=== PATIENT | male | born 1990 | race Caucasian/White ===

== ENCOUNTER 2017-03-03 21:52 | Inpatient (IN) | payer SELFPAY ==
[2017-03-03 22:03] VITALS: BMI 21.5
[2017-03-03] MEDS ORDERED: morphine SULFATE 4 MG/ML VIAL IVPUSH ONE (23:18)
[2017-03-03] MEDS ORDERED: ONDANSETRON 4 MG/2 ML VIAL IVPUSH ONE (23:18)
[2017-03-03] MEDS ORDERED: SODIUM CHLORIDE 0.9% 1000 ML INFUS.BAG IV ONE (23:18)
[2017-03-03] MEDS ORDERED: morphine CARPU-JECT 4 MG/1 ML DISP.SYRIN IVPUSH ONE (23:25)
--- NOTE | 2017-03-03 23:35 | PDOC ---
History of Present Illness <Urmila Parham - Last Filed: 03/04/17 02:54> - General History Source: Patient Exam Limitations: No Limitations - History of Present Illness Initial Comments: 03/03/17 23:27 Patient is a 26-year-old history of alcohol abuse, pancreatitis-diagnosed 2 years ago and admitted in [place], complaining of epigastric pain since a few hours ago. Patient states he had a few drinks today and 2 hours ago after eating at [employer] developed this epigastric pain which 10/10 associated with nausea and vomiting. Patient is very irritable and unable to give a complete history. Patient has been seen several times in this ER for alcohol withdrawal. Denies diarrhea, fever, chills. Contrary to triage patient does not have chest pain but has epigastric pain. States feeling hot all over and would like to drink some water. PMD: Dr. Baldwin PMHX: as above PSOCHX: (+) alcohol, ALL: NKDA GENERAL/CONSTITUTIONAL: [No fever or chills. No weakness. No weight change.] HEAD, EYES, EARS, NOSE AND THROAT: [No change in vision. No ear pain or discharge. No sore throat.] CARDIOVASCULAR: [No chest pain or shortness of breath.] RESPIRATORY: [No cough, wheezing, or hemoptysis.] GASTROINTESTINAL: (+) nausea, vomiting, (-) diarrhea or constipation. No rectal bleeding.] GENITOURINARY: [No dysuria, frequency, or change in urination.] MUSCULOSKELETAL: [No joint or muscle swelling or pain. No neck or back pain.] SKIN AND BREASTS: [No rash or easy bruising.] NEUROLOGIC: [No headache, vertigo, loss of consciousness, or loss of sensation.] PSYCHIATRIC: [No depression or anxiety.] ENDOCRINE: [No increased thirst. No abnormal weight change.] HEMATOLOGIC/LYMPHATIC: [No anemia, easy bleeding, or history of blood clots.] ALLERGIC/IMMUNOLOGIC: [No hives or skin allergy. No latex allergy.] GENERAL: [The patient is awake, alert, and fully oriented, in moderate distress , agitated and annoyed] HEAD: [Normal with no signs of trauma.] EYES: [Pupils equal, round and reactive to light, extraocular movements intact, sclera anicteric, conjunctiva clear.] ENT: [Ears normal, nares patent, oropharynx clear without exudates. Moist mucous membranes.] NECK: [Normal range of motion, supple without lymphadenopathy, JVD, or masses.] LUNGS: [Breath sounds equal, clear to auscultation bilaterally. No wheezes, and no crackles.] HEART: [Regular rate and rhythm, normal S1 and S2 without murmur, rub.] ABDOMEN: [Soft, (+) tenderness to the epgastrum, , normoactive bowel sounds. (+ ) guarding, no rebound. No masses.] EXTREMITIES: [Normal range of motion, no edema. No clubbing or cyanosis. No cords, erythema, or tenderness.] NEUROLOGICAL: [Cranial nerves II through XII grossly intact. Normal speech, normal gait.] PSYCH: [Normal mood, normal affect.] SKIN: [Warm, Dry, normal turgor, no rashes or lesions noted.] <Christian Butler - Last Filed: 03/04/17 04:26> - General Chief Complaint: Pain Stated Complaint: CHEST PAIN Time Seen by Provider: 03/03/17 23:01 Past History <Urmila Parham - Last Filed: 03/04/17 02:54> - Past Medical History Anemia: Yes (not taking any iron supplement) Asthma: No Cancer: No Cardiac Disorders: No CVA: No COPD: No CHF: No Dementia: No Diabetes: No GI Disorders: No Disorders: No HTN: No Hypercholesterolemia: No Kidney Stones: No Liver Disease: No Seizures: No Thyroid Disease: No - Surgical History Abdominal Surgery: No Appendectomy: No Cardiac Surgery: No Cholecystectomy: No Lung Surgery: No Neurologic Surgery: No Orthopedic Surgery: No - Reproductive History Testicular Surgery: No - Suicide/Smoking/Psychosocial Hx Smoking History: Never smoked Have you smoked in the past 12 months: No 'Breaking Loose' booklet given: 07/18/15 Hx Alcohol Use: Yes Drug/Substance Use Hx: No Substance Use Type: Alcohol Hx Substance Use Treatment: Yes <Christian Butler - Last Filed: 03/04/17 04:26> - Past Medical History Allergies/Adverse Reactions: Allergies Allergy/AdvReac Type Severity Reaction Status Date / Time No Known Allergies Allergy Verified 03/03/17 22:00 Home Medications: Ambulatory Orders NK [No Known Home Medication] 03/03/17 Abd/GI Specific PMHX - Complaint Specific PMHX Hepatitis: No Pancreatitis: No <Christian Butler - Last Filed: 03/04/17 04:26> *Physical Exam - Vital Signs Last Vital Signs Temp Pulse Resp BP Pulse Ox 97.8 F 67 18 122/82 99 03/03/17 22:01 03/03/17 22:01 03/03/17 22:01 03/03/17 22:01 03/03/17 22:01 <Urmila Parham - Last Filed: 03/04/17 02:54> - Vital Signs Last Vital Signs Temp Pulse Resp BP Pulse Ox 97.8 F 67 18 122/82 99 03/03/17 22:01 03/03/17 22:01 03/03/17 22:01 03/03/17 22:01 03/03/17 22:01 <Christian Butler - Last Filed: 03/04/17 04:26> ED Treatment Course - LABORATORY CBC & Chemistry Diagram: 03/03/17 23:56 03/03/17 23:56 - ADDITIONAL ORDERS Additional order review: Laboratory Results 03/03/17 03/03/17 23:56 23:50 Sodium 140 Potassium 3.4 L Chloride 102 Carbon Dioxide 29 Anion Gap 9 BUN 10 D Creatinine 1.0 Creat Clearance w eGFR > 60 Random Glucose 137 H D Calcium 9.3 Magnesium 1.9 Total Bilirubin 0.6 AST 30 D ALT 46 D Alkaline Phosphatase 91 Total Protein 7.9 Albumin 4.2 Lipase 22422 H 03/03/17 23:56 RBC 4.86 MCV 89.8 MCHC 34.0 RDW 14.3 D MPV 6.5 L Neutrophils % 89.3 H D Lymphocytes % 6.2 L D Monocytes % 4.2 Eosinophils % 0.1 D Basophils % 0.2 - RADIOLOGY Radiology Studies Ordered: Category Date Time Status CHEST X-RAY PORTABLE* [RAD] Stat Radiology 03/04/17 00:49 Taken - Medications Given in the ED: ED Medications Discontinued Medications Generic Name Dose Route Start Last Admin Trade Name Freq PRN Reason Stop Dose Admin Hydromorphone HCl 2 mg 03/04/17 02:12 03/04/17 02:28 Dilaudid Injection - IVPUSH 03/04/17 02:13 2 mg ONCE ONE Administration Famotidine 20 mg in 12 mls @ 144 mls/hr 03/04/17 00:23 03/04/17 00:23 Pepcid 20 Mg/12 Ml Push IVPUSH 03/04/17 00:27 144 mls/hr ONCE ONE Administration Potassium Chloride 10 meq in 100 mls @ 100 mls/hr 03/04/17 01:00 03/04/17 01: 44 Potassium Chloride 10 Meq Premix Ivpb - IVPB 03/04/17 01:59 100 mls/hr Q60M ZACHERY Administration Morphine Sulfate 4 mg 03/03/17 23:18 03/04/17 00:18 Morphine Sulfate IVPUSH 03/03/17 23:19 Not Given ONCE ONE Morphine Sulfate 4 mg 03/03/17 23:25 03/04/17 00:18 Morphine Injection - IVPUSH 03/03/17 23:26 4 mg ONCE ONE Administration Morphine Sulfate 4 mg 03/04/17 01:10 03/04/17 01:18 Morphine Injection - IVPUSH 03/04/17 01:11 4 mg NOW ONE Administration Ondansetron HCl 4 mg 03/03/17 23:18 03/04/17 00:18 Zofran Injection IVPUSH 03/03/17 23:19 4 mg ONCE ONE Administration Sodium Chloride 1,000 ml 03/03/17 23:18 03/04/17 00:18 Normal Saline - IV 03/03/17 23:19 1,000 ml ONCE ONE Administration <Urmila Parham - Last Filed: 03/04/17 02:54> - LABORATORY CBC & Chemistry Diagram: 03/03/17 23:56 03/03/17 23:56 <Christian Butler - Last Filed: 03/04/17 04:26> Medical Decision Making - Medical Decision Making 03/04/17 02:54 Patient Name: DB HEAD THIS IS A PRELIMINARY REPORT FROM [facility] DATE OF SERVICE: 2017-03-04 01:18:07 IMAGES: [id number] EXAM: CT ABDOMEN AND PELVIS with contrast HISTORY: Pancreatitis COMPARISON: None. FINDINGS: Lung bases are clear. The visualized cardiac chambers are normal size and configuration. Moderate amount of peripancreatic inflammation is consistent with acute pancreatitis. There is mild secondary duodenal inflammation. No other obvious complications identified. No gallstones or biliary duct dilation. Normal liver, gallbladder, spleen, adrenal glands and kidneys. The stomach and abdominal large bowel are normal. There is no aortic aneurysm. There is no significant retroperitoneal lymphadenopathy. The pelvic small and large bowel are normal. The appendix is normal. The urinary bladder and prostate gland are normal. No pelvic free fluid is identified. There is no significant pelvic lymphadenopathy. IMPRESSION: Moderate acute pancreatitis with mild secondary duodenal inflammation THIS DOCUMENT HAS BEEN ELECTRONICALLY SIGNED <Urmila Parham - Last Filed: 03/04/17 02:54> - Medical Decision Making 03/03/17 23:35 Patient is a 26-year-old history of alcohol abuse, pancreatitis-diagnosed 2 years ago and admitted in [place], complaining of epigastric pain since a few hours ago most likely pancreatitis, since he is a drinker and was drinking today. DDX gastritis, perforation labs morphine [address] abd pelvis r/o perforation 03/04/17 01:33 labs reviewed noted to have elevated lipase 25575, with wbc 17.2 will continue on IVF CTAP with IV r/o abscess c/o pain again given Morphine 4mg IV given K+ run x 1, MagSulfate 2gm IV x 1 D/W with Dr. Valenzuela will admit Patient Full Name: SONIDO ACE Patient Accession No: [id number] Patient : 1990 Reason for Exam: PANCREATITIS Referring Physician: Patient Name: DB HEAD THIS IS A PRELIMINARY REPORT FROM [facility] DATE OF SERVICE: 2017-03-04 01:18:07 IMAGES: [id number] EXAM: CT ABDOMEN AND PELVIS with contrast HISTORY: Pancreatitis COMPARISON: None. FINDINGS: Lung bases are clear. The visualized cardiac chambers are normal size and configuration. Moderate amount of peripancreatic inflammation is consistent with acute pancreatitis. There is mild secondary duodenal inflammation. No other obvious complications identified. No gallstones or biliary duct dilation. Normal liver, gallbladder, spleen, adrenal glands and kidneys. The stomach and abdominal large bowel are normal. There is no aortic aneurysm. There is no significant retroperitoneal lymphadenopathy. The pelvic small and large bowel are normal. The appendix is normal. The urinary bladder and prostate gland are normal. No pelvic free fluid is identified. There is no significant pelvic lymphadenopathy. IMPRESSION: Moderate acute pancreatitis with mild secondary duodenal inflammation THIS DOCUMENT HAS BEEN ELECTRONICALLY SIGNED Win Nalaboff, MD 03/04/2017 01:45 EST JessicaD. Please call Imaging [facility] Operations [facility] [phone]) with questions. INTERPRETING RADIOLOGIST: John Ramirez MD Electronically Signed: Mar 04, 2017 01:47AM EST <Christian Butler - Last Filed: 03/04/17 04:26> *DC/Admit/Observation/Transfer <Urmila Parham - Last Filed: 03/04/17 02:54> - Discharge Dispostion Admit: Yes <Christian Butler - Last Filed: 03/04/17 04:26> Diagnosis at time of Disposition: Acute pancreatitis Qualifiers: Pancreatitis type: alcohol induced Acute pancreatitis complication: unspecified Qualified Code(s): K85.20 - Alcohol induced acute pancreatitis without necrosis or infection - Discharge Dispostion Condition at time of disposition: Stable
[2017-03-03 23:59] LABS: BASOPHIL 0.2 % (0-2.0); EOSINOPHIL 0.1 % (0-4.5); MCH 30.5 pg (25.7-33.7); MEAN CELL VOLUME 89.8 fl (80-96); MEAN PLT VOLUME 6.5 fl (7.5-11.1); NEUTROPHILS 89.3 % (42.8-82.8); PLATELET COUNT 287 K/MM3 (134-434); RDW 14.3 % (11.9-15.9); WHITE BLOOD COUNT 17.3 K/mm3 (4.0-10.0)
[2017-03-04] MEDS ORDERED: ONDANSETRON 4 MG/2 ML VIAL ONE (00:11)
[2017-03-04] MEDS ORDERED: morphine SULFATE 4 MG/ML VIAL ONE ×2 (00:11→01:11)
[2017-03-04] MEDS ORDERED: FAMOTIDINE IV 20 MG/12 ML VIAL IVPUSH ONE ×2 (00:23→23:18)
[2017-03-04] MEDS ORDERED: FAMOTIDINE 20 MG/50 ML IVPB 20 MG/50 ML MG IVPB ONE (00:24)
[2017-03-04 00:31] LABS: ALBUMIN 4.2 g/dl (3.4-5.0); ANION GAP 9 (8-16); BILIRUBIN,TOTAL 0.6 mg/dL (0.2-1.0); CALCIUM 9.3 mg/dL (8.5-10.1); CO2 29 mmol/L (21-32); GLUCOSE,RANDOM 137 mg/dL (74-106); SGOT/AST 30 U/L (15-37); SGPT/ALT 46 U/L (12-78); TOT PROT 7.9 g/dl (6.4-8.2)
[2017-03-04 00:33] LABS: ALK PHOS 91 U/L (45-117)
[2017-03-04] MEDS ORDERED: KCL 10 MEQ IVPB 10 MEQ/100 ML INFUS.BAG IVPB SCH (01:00)
[2017-03-04] MEDS ORDERED: KCL 10 MEQ IVPB 10 MEQ/100 ML INFUS.BAG IVPB ONE (01:07)
[2017-03-04] MEDS ORDERED: morphine CARPU-JECT 4 MG/1 ML DISP.SYRIN IVPUSH ONE (01:10)
[2017-03-04] MEDS ORDERED: HYDROmorphone HCL CARPU-JECT 2 MG/1 ML DISP.SYRIN IVPUSH ONE (02:12)
[2017-03-04] MEDS ORDERED: HYDROmorphone HCL CARPU-JECT 2 MG/1 ML DISP.SYRIN ONE ×2 (02:24→14:13)
[2017-03-04 03:05] LABS: AMYLASE 2280 U/L (25-115)
[2017-03-04] MEDS ORDERED: morphine SULFATE 4 MG/ML VIAL IVPUSH PRN ×2 (03:54→09:09)
[2017-03-04] MEDS ORDERED: ONDANSETRON 4 MG/2 ML VIAL IVPUSH PRN (03:54)
[2017-03-04] MEDS ORDERED: SODIUM CHLORIDE 1,000 ML IV SCH (04:00)
[2017-03-04 09:01] LABS: CHOLESTEROL 213 mg/dL (50-200)
--- NOTE | 2017-03-04 09:03 | CON.GI ---
Consult Consult Specialty:: GI Reason for Consultation:: Acute pancreatitis - History of Present Illness History of Present Illness: Chart reviewed. A 26 yom admitted via ED with acute pancreatitis. Ongoing alcohol abuse and history of acute pancreatitis. Elevated lipase and a CT findings on admission are consistent with acute pancreatitis. Normal Hgb, BUN, Cr. Vital signs. Elevated WBC. There is no family history of pancreatitis. No personal history of dyslipidemia. - History Source History Provided By: Patient, Medical Record - Alcohol/Substance Use Hx Alcohol Use: Yes - Smoking History Smoking history: Never smoked Have you smoked in the past 12 months: No Home Medications - Allergies Allergies/Adverse Reactions: Allergies Allergy/AdvReac Type Severity Reaction Status Date / Time No Known Allergies Allergy Verified 03/03/17 22:00 - Home Medications Home Medications: Ambulatory Orders NK [No Known Home Medication] 03/03/17 Family Disease History - Family Disease History Family History: Unremarkable (non-contributory) Family Disease History: Diabetes: Mother Review of Systems Findings/Remarks: please refer to H&P Physical Exam-GI Vital Signs: Vital Signs Temperature 98.9 F 03/04/17 01:37 Pulse Rate 84 03/04/17 01:37 Respiratory Rate 22 03/04/17 04:44 Blood Pressure 140/85 03/04/17 01:37 O2 Sat by Pulse Oximetry (%) 99 03/04/17 04:44 Constitutional: Yes: Mild Distress Eyes: Yes: Conjunctiva Clear HENT: Yes: Atraumatic Neck: Yes: Supple Cardiovascular: Yes: Regular Rate and Rhythm Respiratory: Yes: Regular Gastrointestinal Inspection: No: Ascites, Distention ...Palpate: Yes: Guarding, Soft, Tenderness, Tenderness, Epigastium, Tenderness , Rebound. No: Mass Neurological: Yes: Alert, Oriented Labs: CBC, BMP 03/03/17 23:56 03/03/17 23:56 Abnormal Lab Results 03/03/17 03/03/17 23:56 23:56 WBC 17.3 H D MPV 6.5 L Neutrophils % 89.3 H D Lymphocytes % 6.2 L D Potassium 3.4 L Random Glucose 137 H D Total Amylase 2280 H Lipase 52694 H Laboratory Results - last 24 hr 03/03/17 03/03/17 03/03/17 23:50 23:56 23:56 WBC 17.3 H D RBC 4.86 Hgb 14.8 Hct 43.7 MCV 89.8 MCH 30.5 MCHC 34.0 RDW 14.3 D Plt Count 287 MPV 6.5 L Neutrophils % 89.3 H D Lymphocytes % 6.2 L D Monocytes % 4.2 Eosinophils % 0.1 D Basophils % 0.2 Sodium 140 Potassium 3.4 L Chloride 102 Carbon Dioxide 29 Anion Gap 9 BUN 10 D Creatinine 1.0 Creat Clearance w eGFR > 60 Random Glucose 137 H D Calcium 9.3 Magnesium 1.9 Total Bilirubin 0.6 AST 30 D ALT 46 D Alkaline Phosphatase 91 Total Protein 7.9 Albumin 4.2 Total Amylase 2280 H Lipase 33238 H Imaging - Results Cat Scan: Report Reviewed Problem List - Problems (1) Acute pancreatitis Code(s): K85.90 - ACUTE PANCREATITIS WITHOUT NECROSIS OR INFECTION, UNSP Qualifiers: Pancreatitis type: alcohol induced Acute pancreatitis complication: unspecified Qualified Code(s): K85.20 - Alcohol induced acute pancreatitis without necrosis or infection (2) Alcohol dependence with uncomplicated withdrawal Code(s): F10.230 - ALCOHOL DEPENDENCE WITH WITHDRAWAL, UNCOMPLICATED Assessment/Plan Recurrent, acute mild alcohol-related pancreatitis. Increase IVF to 300 cc/hr Pain management and antiemetics NPO today CBC, CMP daily MRCP IGG4 tgc monitor closely
[2017-03-04 09:20] LABS: BASOPHIL 0.1 % (0-2.0); MCH 30.3 pg (25.7-33.7); MCHC 33.6 g/dl (32.0-35.9); MEAN CELL VOLUME 90.1 fl (80-96); MEAN PLT VOLUME 7.1 fl (7.5-11.1); NEUTROPHILS 90.4 % (42.8-82.8); PLATELET COUNT 280 K/MM3 (134-434); RDW 14.5 % (11.9-15.9)
[2017-03-04 09:36] LABS: ALBUMIN 3.8 g/dl (3.4-5.0); ALK PHOS 90 U/L (45-117); ANION GAP 7 (8-16); BILIRUBIN,TOTAL 0.7 mg/dL (0.2-1.0); CALCIUM 8.6 mg/dL (8.5-10.1); CO2 29 mmol/L (21-32); CREATININE 0.9 mg/dL (0.7-1.3); GLUCOSE,RANDOM 132 mg/dL (74-106); SGOT/AST 22 U/L (15-37); SGPT/ALT 39 U/L (12-78); TOT PROT 7.3 g/dl (6.4-8.2)
--- NOTE | 2017-03-04 09:48 | CONSULT ---
Consult Consult Specialty:: general surgery Referred by:: galindo waldrop Reason for Consultation:: abdominal pain - History of Present Illness Chief Complaint: abdominal pain - History Source History Provided By: Patient Limitations to Obtaining History: No Limitations - Alcohol/Substance Use Hx Alcohol Use: Yes - Smoking History Smoking history: Never smoked Have you smoked in the past 12 months: No Home Medications - Allergies Allergies/Adverse Reactions: Allergies Allergy/AdvReac Type Severity Reaction Status Date / Time No Known Allergies Allergy Verified 03/03/17 22:00 - Home Medications Home Medications: Ambulatory Orders NK [No Known Home Medication] 03/03/17 Family Disease History - Family Disease History Family Disease History: Diabetes: Mother Physical Exam Vital Signs: Vital Signs Temperature 98.9 F 03/04/17 01:37 Pulse Rate 84 03/04/17 01:37 Respiratory Rate 22 03/04/17 04:44 Blood Pressure 140/85 03/04/17 01:37 O2 Sat by Pulse Oximetry (%) 99 03/04/17 04:44 Vital Signs Period Temp Pulse Resp BP Sys/Goel Pulse Ox Last 24 Hr 97.8 F-98.9 F 67-84 18-22 122-140/82-85 99-99 Labs: CBC, BMP 03/04/17 08:05 03/04/17 08:05
[2017-03-04] MEDS: SODIUM CHLORIDE 1,000 ML IV SCH (09:51)
[2017-03-04] MEDS ORDERED: FAMOTIDINE IV 20 MG/12 ML VIAL IVPUSH SCH (10:00)
[2017-03-04] MEDS: FAMOTIDINE IV 20 MG/12 ML VIAL IVPUSH SCH ×2 (11:57→22:41)
[2017-03-04 12:47] LABS: AMYLASE 1173 U/L (25-115)
--- NOTE | 2017-03-04 12:54 | EKG ---
Test Reason : Blood Pressure : / mmHG Vent. Rate : 057 BPM Atrial Rate : 057 BPM P-R Int : 132 ms QRS Dur : 116 ms QT Int : 390 ms P-R-T Axes : 055 062 054 degrees QTc Int : 379 ms SINUS BRADYCARDIA WITH MARKED SINUS ARRHYTHMIA INCOMPLETE RIGHT BUNDLE BRANCH BLOCK BORDERLINE ECG WHEN COMPARED WITH ECG OF 03-MAR-2014 18:09, VENT. RATE HAS DECREASED BY 42 BPM QT HAS SHORTENED Confirmed by WINIFRED TRUJILLO, SOLA ([id number]) on 03/04/2017 12:53:24 PM Referred By: Confirmed By:SOLA VITALE MD
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
[2017-03-04] MEDS ORDERED: HYDROmorphone HCL CARPU-JECT 2 MG/1 ML DISP.SYRIN IVPB PRN (13:46)
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
[2017-03-04] MEDS ORDERED: ONDANSETRON *ODT* 4 MG TABLET SL ONE (17:42)
[2017-03-04] MEDS ORDERED: ONDANSETRON *ODT* 4 MG TABLET SL PRN (17:42)
[2017-03-04] MEDS ORDERED: THIAMINE HCL 200 MG/2 ML VIAL IVPB ONE (17:44)
[2017-03-04] MEDS ORDERED: LORazepam 2 MG/ML SDV VIAL IVPUSH PRN (17:45)
[2017-03-04] MEDS ORDERED: HYDROmorphone HCL CARPU-JECT 2 MG/1 ML DISP.SYRIN IVPB SCH (17:45)
[2017-03-04] MEDS: HYDROmorphone HCL CARPU-JECT 2 MG/1 ML DISP.SYRIN IVPB PRN ×2 (18:00→22:20)
[2017-03-04] MEDS: LORazepam 2 MG/ML SDV VIAL IVPUSH SCH ×2 (18:06→22:47)
[2017-03-04] MEDS ORDERED: LORazepam 2 MG/ML SDV VIAL IVPUSH ONE (18:29)
--- NOTE | 2017-03-04 18:30 | HP ---
Admitting History and Physical - Past Medical History Gastrointestinal: Yes: Pancreatitis (2 yrs ago) - Smoking History Smoking history: Never smoked Have you smoked in the past 12 months: No - Alcohol/Substance Use Hx Alcohol Use: Yes (quit for 1.5 yrs about 2yrs ago, resumed in September) Number of Drinks Daily: 16 (1 pint vodka/day) History of Substance Use: reports: Marijuana (every other day, used to be more before 2010), Prescription (Percocet 10/325 - takes 3-4/day for last 4-6 weeks) - Social History ADL: Independent Occupation: [employer] Home Medications - Allergies Allergies/Adverse Reactions: Allergies Allergy/AdvReac Type Severity Reaction Status Date / Time No Known Allergies Allergy Verified 03/03/17 22:00 - Home Medications Home Medications: Ambulatory Orders NK [No Known Home Medication] 03/03/17 Family Disease History - Family Disease History Family Disease History: Diabetes: Mother Physical Examination Vital Signs: Vital Signs Temperature 98.8 F 03/04/17 15:27 Pulse Rate 73 03/04/17 15:27 Respiratory Rate 18 03/04/17 15:27 Blood Pressure 147/80 03/04/17 15:27 O2 Sat by Pulse Oximetry (%) 99 03/04/17 09:00 Labs: CBC, BMP 03/04/17 08:05 03/04/17 08:05
--- NOTE | 2017-03-04 20:39 | HP ---
Admitting History and Physical - Primary Care Physician PCP: Amado Alfonso - Admission Chief Complaint: ACUTE ABDOMINAL PAIN History of Present Illness: Patient is a 26-year-old history of alcohol abuse, pancreatitis-diagnosed 2 years ago and admitted in [place], complaining of epigastric pain since a few hours ago. Patient states he had a few drinks today and 2 hours ago after eating at [employer] developed this epigastric pain which 10/10 associated with nausea and vomiting. Patient is very irritable and unable to give a complete history. Patient has been seen several times in this ER for alcohol withdrawal. Denies diarrhea, fever, chills. Contrary to triage patient does not have chest pain but has epigastric pain. States feeling hot all over and would like to drink some water. 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 [employer] Home Medications - Allergies Allergies/Adverse Reactions: Allergies Allergy/AdvReac Type Severity Reaction Status Date / Time No Known Allergies Allergy Verified 03/03/17 22:00 - Home Medications Home Medications: Ambulatory Orders NK [No Known Home Medication] 03/03/17 Family Disease History - Family Disease History Family Disease History: Diabetes: Mother Review of Systems - Review of Systems Constitutional: reports: Loss of Appetite Eyes: reports: No Symptoms HENT: reports: No Symptoms Neck: reports: No Symptoms Cardiovascular: reports: No Symptoms Respiratory: reports: No Symptoms Gastrointestinal: reports: Abdominal Pain, Indigestion, Nausea, Vomiting Genitourinary: reports: No Symptoms Musculoskeletal: reports: No Symptoms Integumentary: reports: No Symptoms Neurological: reports: No Symptoms Endocrine: reports: No Symptoms Hematology/Lymphatic: reports: No Symptoms Psychiatric: reports: Other Physical Examination Vital Signs: Vital Signs Temperature 98.8 F 03/04/17 15:27 Pulse Rate 73 03/04/17 15:27 Respiratory Rate 18 03/04/17 15:27 Blood Pressure 147/80 03/04/17 15:27 O2 Sat by Pulse Oximetry (%) 99 03/04/17 09:00 Constitutional: Yes: Moderate Distress Eyes: Yes: WNL HENT: Yes: WNL Neck: Yes: WNL Cardiovascular: Yes: WNL Respiratory: Yes: WNL Gastrointestinal: Yes: Tenderness, Epigastrium Renal/: Yes: WNL Musculoskeletal: Yes: WNL Extremities: Yes: WNL Edema: No Peripheral Pulses WNL: Yes Integumentary: Yes: WNL Wound/Incision: Yes: Clean/Dry Neurological: Yes: WNL ...Motor Strength: WNL Psychiatric: Yes: WNL Labs: CBC, BMP 03/04/17 08:05 03/04/17 08:05 Problem List - Problems (1) Acute pancreatitis Code(s): K85.90 - ACUTE PANCREATITIS WITHOUT NECROSIS OR INFECTION, UNSP Qualifiers: Pancreatitis type: alcohol induced Acute pancreatitis complication: unspecified Qualified Code(s): K85.20 - Alcohol induced acute pancreatitis without necrosis or infection (2) Alcohol dependence, continuous drinking behavior Code(s): F10.20 - ALCOHOL DEPENDENCE, UNCOMPLICATED (3) Alcohol-induced acute pancreatitis Code(s): K85.20 - ALCOHOL INDUCED ACUTE PANCREATITIS WITHOUT NECROSIS OR INFCT Qualifiers: Acute pancreatitis complication: no infection or necrosis Qualified Code(s) : K85.20 - Alcohol induced acute pancreatitis without necrosis or infection Assessment/Plan NPO GI EVAL IVF PAIN CONTROL SURGERY EVAL WILL NEED DETOX OUTPATIENT FOR SUPPORT PROGRAM
[2017-03-05] MEDS: LORazepam 2 MG/ML SDV VIAL IVPUSH SCH ×7 (01:10→23:21)
[2017-03-05] MEDS: SODIUM CHLORIDE 1,000 ML IV SCH ×4 (01:11→20:30)
[2017-03-05] MEDS: HYDROmorphone HCL CARPU-JECT 2 MG/1 ML DISP.SYRIN IVPB PRN ×4 (03:19→22:02)
[2017-03-05 07:10] LABS: MCHC 33.5 g/dl (32.0-35.9); MEAN CELL VOLUME 89.5 fl (80-96); PLATELET COUNT 263 K/MM3 (134-434); RDW 14.1 % (11.9-15.9); WHITE BLOOD COUNT 16.3 K/mm3 (4.0-10.0)
[2017-03-05 07:27] LABS: ALBUMIN 3.5 g/dl (3.4-5.0); ANION GAP 9 (8-16); CALCIUM 8.4 mg/dL (8.5-10.1); CO2 28 mmol/L (21-32); CREATININE 0.7 mg/dL (0.7-1.3); GLUCOSE,RANDOM 98 mg/dL (74-106); SGOT/AST 11 U/L (15-37); SGPT/ALT 25 U/L (12-78)
[2017-03-05 07:28] LABS: MAGNESIUM 1.9 mg/dL (1.8-2.4)
[2017-03-05 07:29] LABS: ALK PHOS 72 U/L (45-117); BILIRUBIN,TOTAL 0.8 mg/dL (0.2-1.0); TOT PROT 6.4 g/dl (6.4-8.2)
[2017-03-05] MEDS ORDERED: PT OWN MED DRAWER 7, Y5N ONE ×2 (09:51→21:18)
[2017-03-05 10:54] LABS: BASOPHIL 0.2 % (0-2.0); MCH 30.3 pg (25.7-33.7); MCHC 33.6 g/dl (32.0-35.9); MEAN PLT VOLUME 7.1 fl (7.5-11.1); NEUTROPHILS 86.6 % (42.8-82.8); PLATELET COUNT 272 K/MM3 (134-434); RDW 14.3 % (11.9-15.9); WHITE BLOOD COUNT 16.4 K/mm3 (4.0-10.0)
[2017-03-05] MEDS: FAMOTIDINE IV 20 MG/12 ML VIAL IVPUSH SCH ×2 (11:07→22:02)
--- NOTE | 2017-03-05 12:03 | PN ---
S Progress Note (SOAP) Subjective: still NPO, but pain and withdrawal sx controlled on current regimen, switched dilaudid to ivpb as they do nto have ivp on floor, ativan being given ivp, Objective: 03/08/17 12:47 chrt revveiwed, vss reviewed, labs and imaging reviewed, patient appears much more comfortabel today Assessment: 03/08/17 12:47 alcohol withdrawal sx superimposed on pancreatitis, maintain on diludid and ativan atc iv as precribed until medically stabel for detox and po medications. Eliseo Mancera MD [phone]
--- NOTE | 2017-03-05 13:12 | PN ---
Progress Note, Physician History of Present Illness: Chart reviewed. Still has periodic, epigastric pain. Staying NPO and on 300 cc/hr IVF. Leukocutosis, afebrile. Normal BUN, Cr - Current Medication List Current Medications: Active Medications Hydromorphone HCl (Dilaudid Injection -) 2 mg IVPB Q6H PRN Sodium Chloride (Normal Saline -) 1,000 mls @ 300 mls/hr IV ASDIR [facility] Last Admin: 03/05/17 08:49 Dose: 300 mls/hr Famotidine (Pepcid 20 Mg/12 Ml Push) 20 mg in 12 mls @ 144 mls/hr IVPUSH BID [facility] Last Admin: 03/05/17 11:07 Dose: 144 mls/hr Lorazepam (Ativan Injection -) [address] [facility] Last Admin: 03/05/17 12:46 Dose: 1 mg Lorazepam (Ativan Injection -) 1 mg IVPUSH Q6H PRN PRN Reason: WITHDRAWAL(CONT SUBST) Lorazepam (Ativan Injection -) [address] [facility] Last Admin: 03/04/17 22:47 Dose: 2 mg Ondansetron HCl (Zofran Injection) 4 mg IVPUSH Q6H PRN PRN Reason: NAUSEA AND/OR VOMITING Last Admin: 03/04/17 09:50 Dose: 4 mg Ondansetron HCl (Zofran Odt -) 8 mg SL Q6H PRN PRN Reason: NAUSEA AND/OR VOMITING - Objective Vital Signs: Vital Signs Temperature 98.0 F 03/05/17 06:00 Pulse Rate 83 03/05/17 06:00 Respiratory Rate 18 03/05/17 06:00 Blood Pressure 136/83 03/05/17 06:00 O2 Sat by Pulse Oximetry (%) 99 03/04/17 09:00 Constitutional: Yes: No Distress Eyes: Yes: Conjunctiva Clear HENT: Yes: Atraumatic Neck: Yes: Supple Cardiovascular: Yes: Regular Rate and Rhythm Respiratory: Yes: Regular Gastrointestinal: Yes: Soft, Tenderness, Epigastrium, Tenderness, Rebound Neurological: Yes: Alert, Oriented Labs: CBC, BMP 03/05/17 09:15 03/05/17 06:20 Abnormal Lab Results 03/05/17 03/05/17 03/05/17 06:20 06:20 06:20 WBC 16.3 H MPV 7.0 L Neutrophils % Lymphocytes % BUN 6 L D Calcium 8.4 L AST 11 L D Total Amylase 722 H D Lipase 4578 H 03/05/17 09:15 WBC 16.4 H MPV 7.1 L Neutrophils % 86.6 H Lymphocytes % 7.1 L D BUN Calcium AST Total Amylase Lipase - ....Imaging MRI: Report Reviewed Problem List - Problems (1) Acute pancreatitis Code(s): K85.90 - ACUTE PANCREATITIS WITHOUT NECROSIS OR INFECTION, UNSP Qualifiers: Pancreatitis type: alcohol induced Acute pancreatitis complication: unspecified Qualified Code(s): K85.20 - Alcohol induced acute pancreatitis without necrosis or infection (2) Alcohol dependence with uncomplicated withdrawal Code(s): F10.230 - ALCOHOL DEPENDENCE WITH WITHDRAWAL, UNCOMPLICATED Assessment/Plan Recurrent, acute mild alcohol-related pancreatitis. IVF 300 cc/hr Pain management and antiemetics NPO today CBC, CMP daily ETOH counseling monitor closely
--- NOTE | 2017-03-05 13:25 | PN ---
Progress Note, Physician Chief Complaint: epigastric pain History of Present Illness: No overnight events. Pt states pain is better controlled with medication adjustments, but still has pain. Resting comfortably on my arrival. Pain with movement. No vomiting. NPO with IVF running. - Current Medication List Current Medications: Active Medications Hydromorphone HCl (Dilaudid Injection -) 2 mg IVPB Q6H PRN Sodium Chloride (Normal Saline -) 1,000 mls @ 300 mls/hr IV ASDIR [facility] Last Admin: 03/05/17 08:49 Dose: 300 mls/hr Famotidine (Pepcid 20 Mg/12 Ml Push) 20 mg in 12 mls @ 144 mls/hr IVPUSH BID [facility] Last Admin: 03/05/17 11:07 Dose: 144 mls/hr Lorazepam (Ativan Injection -) 1 mg IVPUSH Q6H [facility] Last Admin: 03/05/17 12:46 Dose: 1 mg Lorazepam (Ativan Injection -) 1 mg IVPUSH Q6H PRN PRN Reason: WITHDRAWAL(CONT SUBST) Lorazepam (Ativan Injection -) 2 mg IVPUSH HS [facility] Last Admin: 03/04/17 22:47 Dose: 2 mg Ondansetron HCl (Zofran Injection) 4 mg IVPUSH Q6H PRN PRN Reason: NAUSEA AND/OR VOMITING Last Admin: 03/04/17 09:50 Dose: 4 mg Ondansetron HCl (Zofran Odt -) 8 mg SL Q6H PRN PRN Reason: NAUSEA AND/OR VOMITING - Objective Vital Signs: Vital Signs Temperature 98.0 F 03/05/17 06:00 Pulse Rate 83 03/05/17 06:00 Respiratory Rate 18 03/05/17 06:00 Blood Pressure 136/83 03/05/17 06:00 O2 Sat by Pulse Oximetry (%) 99 03/04/17 09:00 Vital Signs Period Temp Pulse Resp BP Sys/Goel Pulse Ox Last 24 Hr 98.0 F-98.8 F 73-83 18-18 134-147/72-83 Constitutional: Yes: Well Nourished, No Distress, Calm Eyes: Yes: Conjunctiva Clear. No: Sclera Icterus HENT: Yes: Atraumatic, Normocephalic Gastrointestinal: Yes: Soft, Distention (minimal), Hypoactive Bowel Sounds, Tenderness (mild LUQ/LLQ, mostly epigastric, voluntary guarding, no rebound), Tenderness, Epigastrium Musculoskeletal: No: Joint Stiffness, Joint Swelling Extremities: No: Cool, Cyanosis Integumentary: No: Jaundice, Rash Neurological: Yes: Alert, Oriented, Lethargy Psychiatric: Yes: Alert, Oriented Labs: CBC, BMP 03/05/17 09:15 03/05/17 06:20 CMP Sodium 138 mmol/L (136-145) 03/05/17 06:20 Potassium 3.5 mmol/L (3.5-5.1) D 03/05/17 06:20 Chloride 101 mmol/L (98-107) 03/05/17 06:20 Carbon Dioxide 28 mmol/L (21-32) 03/05/17 06:20 Anion Gap 9 (8-16) 03/05/17 06:20 BUN 6 mg/dL (7-18) L D 03/05/17 06:20 Creatinine 0.7 mg/dL (0.7-1.3) D 03/05/17 06:20 Creat Clearance w eGFR > 60 (>60) 03/05/17 06:20 Random Glucose 98 mg/dL (74-106) D 03/05/17 06:20 Calcium 8.4 mg/dL (8.5-10.1) L 03/05/17 06:20 Magnesium 1.9 mg/dL (1.8-2.4) 03/05/17 06:20 Total Bilirubin 0.8 mg/dL (0.2-1.0) 03/05/17 06:20 AST 11 U/L (15-37) L D 03/05/17 06:20 ALT 25 U/L (12-78) D 03/05/17 06:20 Alkaline Phosphatase 72 U/L (45-117) 03/05/17 06:20 Total Protein 6.4 g/dl (6.4-8.2) 03/05/17 06:20 Albumin 3.5 g/dl (3.4-5.0) 03/05/17 06:20 Triglycerides 55 mg/dL (35-160) 03/04/17 08:05 Cholesterol 213 mg/dL (50-200) H 03/04/17 08:05 Total LDL Cholesterol 137 mg/dL (5-100) H 03/04/17 08:05 HDL Cholesterol 61 mg/dL (40-60) H 03/04/17 08:05 Total Amylase 722 U/L (25-115) H D 03/05/17 06:20 Lipase 4578 U/L (73-393) H 03/05/17 06:20 am/lip coming down slowly, K+ low - ....Imaging MRI: Report Reviewed (no gallstones or intraductal stones, moderate pancreatitis , no biliary dilation) Problem List - Problems (1) Alcohol-induced acute pancreatitis Assessment/Plan: keep NPO/IVF with aggressive hydration, until pain/tenderness resolve consider adding D5 at some point (can do 100ml/hr D5 1/2NS + 20KCl and second IV with additional crystalloid for volume) trend labs replete lytes prn GI/DVT prophylaxis MRCP without gallstones GI on board detox consultation noted pain control prn no surgical issues will follow peripherally, please call with any questions Code(s): K85.20 - ALCOHOL INDUCED ACUTE PANCREATITIS WITHOUT NECROSIS OR INFCT Qualifiers: Acute pancreatitis complication: no infection or necrosis Qualified Code(s) : K85.20 - Alcohol induced acute pancreatitis without necrosis or infection (2) Alcohol dependence, continuous drinking behavior Code(s): F10.20 - ALCOHOL DEPENDENCE, UNCOMPLICATED (3) Drug abuse, marijuana Code(s): F12.10 - CANNABIS ABUSE, UNCOMPLICATED (4) Percocet use disorder, mild, abuse Code(s): F11.10 - OPIOID ABUSE, UNCOMPLICATED
--- NOTE | 2017-03-05 15:07 | PN ---
Progress Note, Physician Chief Complaint: AWAKE FAMILY BEDSIDE STILL IN PAIN - Current Medication List Current Medications: Active Medications Hydromorphone HCl (Dilaudid Injection -) 2 mg IVPB Q6H PRN Sodium Chloride (Normal Saline -) 1,000 mls @ 300 mls/hr IV ASDIR [facility] Last Admin: 03/05/17 08:49 Dose: 300 mls/hr Famotidine (Pepcid 20 Mg/12 Ml Push) 20 mg in 12 mls @ 144 mls/hr IVPUSH BID [facility] Last Admin: 03/05/17 11:07 Dose: 144 mls/hr Lorazepam (Ativan Injection -) 1 mg IVPUSH Q6H [facility] Last Admin: 03/05/17 12:46 Dose: 1 mg Lorazepam (Ativan Injection -) 1 mg IVPUSH Q6H PRN PRN Reason: WITHDRAWAL(CONT SUBST) Lorazepam (Ativan Injection -) 2 mg IVPUSH HS [facility] Last Admin: 03/04/17 22:47 Dose: 2 mg Ondansetron HCl (Zofran Injection) 4 mg IVPUSH Q6H PRN PRN Reason: NAUSEA AND/OR VOMITING Last Admin: 03/04/17 09:50 Dose: 4 mg Ondansetron HCl (Zofran Odt -) 8 mg SL Q6H PRN PRN Reason: NAUSEA AND/OR VOMITING - Objective Vital Signs: Vital Signs Temperature 99.2 F 03/05/17 15:03 Pulse Rate 83 03/05/17 15:03 Respiratory Rate 18 03/05/17 15:03 Blood Pressure 144/73 03/05/17 15:03 O2 Sat by Pulse Oximetry (%) 99 03/04/17 09:00 Constitutional: Yes: Mild Distress Eyes: Yes: WNL HENT: Yes: WNL Neck: Yes: WNL Cardiovascular: Yes: WNL Respiratory: Yes: WNL Gastrointestinal: Yes: Tenderness Genitourinary: Yes: WNL Musculoskeletal: Yes: WNL Extremities: Yes: WNL Edema: No Peripheral Pulses WNL: Yes Integumentary: Yes: WNL Wound/Incision: Yes: Clean/Dry Neurological: Yes: WNL ...Motor Strength: WNL Psychiatric: Yes: WNL Labs: CBC, BMP 03/05/17 09:15 03/05/17 06:20 Problem List - Problems (1) Acute pancreatitis Code(s): K85.90 - ACUTE PANCREATITIS WITHOUT NECROSIS OR INFECTION, UNSP Qualifiers: Pancreatitis type: alcohol induced Acute pancreatitis complication: unspecified Qualified Code(s): K85.20 - Alcohol induced acute pancreatitis without necrosis or infection (2) Alcohol dependence, continuous drinking behavior Code(s): F10.20 - ALCOHOL DEPENDENCE, UNCOMPLICATED (3) Alcohol-induced acute pancreatitis Code(s): K85.20 - ALCOHOL INDUCED ACUTE PANCREATITIS WITHOUT NECROSIS OR INFCT Qualifiers: Acute pancreatitis complication: no infection or necrosis Qualified Code(s) : K85.20 - Alcohol induced acute pancreatitis without necrosis or infection Assessment/Plan NPO STILL PAIN MEDS IVF ATIVAN PRN AGITATION AND WITHDRAWELS OUTPATIENT SUPPORT GROUP
[2017-03-06] MEDS: SODIUM CHLORIDE 1,000 ML IV SCH ×4 (00:01→12:04)
[2017-03-06] MEDS: HYDROmorphone HCL CARPU-JECT 2 MG/1 ML DISP.SYRIN IVPB PRN ×2 (04:01→10:05)
[2017-03-06] MEDS: LORazepam 2 MG/ML SDV VIAL IVPUSH SCH ×4 (06:37→21:38)
[2017-03-06 08:43] LABS: BASOPHIL 0.5 % (0-2.0); MCH 29.9 pg (25.7-33.7); MCHC 33.7 g/dl (32.0-35.9); MEAN CELL VOLUME 88.6 fl (80-96); MEAN PLT VOLUME 6.6 fl (7.5-11.1); NEUTROPHILS 81.3 % (42.8-82.8); PLATELET COUNT 248 K/MM3 (134-434); RDW 13.8 % (11.9-15.9); WHITE BLOOD COUNT 17.2 K/mm3 (4.0-10.0)
[2017-03-06 09:41] LABS: ALBUMIN 2.9 g/dl (3.4-5.0); ALK PHOS 65 U/L (45-117); ANION GAP 10 (8-16); BILIRUBIN,TOTAL 0.8 mg/dL (0.2-1.0); CALCIUM 8.3 mg/dL (8.5-10.1); CO2 26 mmol/L (21-32); CREATININE 0.7 mg/dL (0.7-1.3); GLUCOSE,RANDOM 78 mg/dL (74-106); SGOT/AST 12 U/L (15-37); SGPT/ALT 18 U/L (12-78)
[2017-03-06] MEDS: FAMOTIDINE IV 20 MG/12 ML VIAL IVPUSH SCH ×2 (10:10→21:38)
--- NOTE | 2017-03-06 11:11 | PN ---
Progress Note, Physician Chief Complaint: AWAEK ALERT FEELING BETTER - Current Medication List Current Medications: Active Medications Hydromorphone HCl (Dilaudid Injection -) 2 mg IVPB Q6H PRN Last Admin: 03/06/17 10:05 Dose: 2 mg Sodium Chloride (Normal Saline -) 1,000 mls @ 300 mls/hr IV ASDIR [facility] Last Admin: 03/06/17 08:11 Dose: 300 mls/hr Famotidine (Pepcid 20 Mg/12 Ml Push) 20 mg in 12 mls @ 144 mls/hr IVPUSH BID [facility] Last Admin: 03/06/17 10:10 Dose: 144 mls/hr Lorazepam (Ativan Injection -) 1 mg IVPUSH Q6H [facility] Last Admin: 03/06/17 06:37 Dose: 1 mg Lorazepam (Ativan Injection -) 1 mg IVPUSH Q6H PRN PRN Reason: WITHDRAWAL(CONT SUBST) Lorazepam (Ativan Injection -) 2 mg IVPUSH HS [facility] Last Admin: 03/05/17 21:30 Dose: 2 mg Ondansetron HCl (Zofran Injection) 4 mg IVPUSH Q6H PRN PRN Reason: NAUSEA AND/OR VOMITING Last Admin: 03/04/17 09:50 Dose: 4 mg Ondansetron HCl (Zofran Odt -) 8 mg SL Q6H PRN PRN Reason: NAUSEA AND/OR VOMITING - Objective Vital Signs: Vital Signs Temperature 99.2 F 03/06/17 06:00 Pulse Rate 91 H 03/06/17 06:00 Respiratory Rate 18 03/06/17 06:00 Blood Pressure 126/82 03/06/17 06:00 O2 Sat by Pulse Oximetry (%) 96 03/05/17 21:00 Constitutional: Yes: Mild Distress Eyes: Yes: WNL HENT: Yes: WNL Neck: Yes: WNL Cardiovascular: Yes: WNL Respiratory: Yes: WNL Gastrointestinal: Yes: Tenderness Genitourinary: Yes: WNL Musculoskeletal: Yes: WNL Extremities: Yes: WNL Edema: No Peripheral Pulses WNL: Yes Integumentary: Yes: WNL Wound/Incision: Yes: Clean/Dry Neurological: Yes: WNL ...Motor Strength: WNL Psychiatric: Yes: WNL Labs: CBC, BMP 03/06/17 08:30 12/06/17 08:30 Problem List - Problems (1) Acute pancreatitis Code(s): K85.90 - ACUTE PANCREATITIS WITHOUT NECROSIS OR INFECTION, UNSP Qualifiers: Pancreatitis type: alcohol induced Acute pancreatitis complication: unspecified Qualified Code(s): K85.20 - Alcohol induced acute pancreatitis without necrosis or infection (2) Alcohol dependence, continuous drinking behavior Code(s): F10.20 - ALCOHOL DEPENDENCE, UNCOMPLICATED (3) Alcohol-induced acute pancreatitis Code(s): K85.20 - ALCOHOL INDUCED ACUTE PANCREATITIS WITHOUT NECROSIS OR INFCT Qualifiers: Acute pancreatitis complication: no infection or necrosis Qualified Code(s) : K85.20 - Alcohol induced acute pancreatitis without necrosis or infection Assessment/Plan NPO STILL DEPENDING ON LIPASE LEVEL MAY START CLEAR DIET TODAY PAIN MEDS IVF ATIVAN PRN AGITATION AND WITHDRAWELS OUTPATIENT SUPPORT GROUP
[2017-03-06 12:55] LABS: AMYLASE 162 U/L (25-115)
[2017-03-06] MEDS ORDERED: HYDROmorphone HCL CARPU-JECT 1 MG/1 ML DISP.SYRIN IM PRN (14:09)
[2017-03-06] MEDS ORDERED: HYDROmorphone HCL CARPU-JECT 2 MG/1 ML DISP.SYRIN IVPB ONE (14:15)
[2017-03-06] MEDS ORDERED: GLYCERIN 1 RECTAL SUPPOSITORY, ADULT PR ONE (14:22)
--- NOTE | 2017-03-06 14:31 | HOSP ---
Subjective - Review of Symptoms Events since last encounter: Was called to 503-A to evaluate pt for L sided flank pain. Pt states pain in L flank began in last hour, feels sharp 10/10, with no radiation, not worsened by position. He denies any fever/chills, SOB, CP, palpitations, dysuria/hematuria, hematochezia/melena, constipation/diarrhea. He has been NPO on admission. Pain being treated with dilaudid 2mg Q6h with adequate pain control. Pt has never had back pain like this before. Denies any hx of IBD, kidney stones, renal abscess, diverticulitis. No bowel movements since admission. WBC 17.2, persistently elevated since admission. PE: NCAT RRR, 2/6 RUSB ejection murmur. No displaced PMI. S1, S2 appreciated CTABL Epigastric pain worsened with inspiration and deep palpation. Hypoactive bowel sounds. Negative murphys. Pain in LUQ/LLQ. Warm to touch. No rashes, bruising noted. Plan: Cleared for fluids by Kaden NS 300 decreased to LR 150 cc/hr Dilaudid 2mg IV push Dilaudid dosing switched from 2mg q6h to 1mg q3h IV Renal U/S KUB UA Plan discussed with attending, Dr. Tree Kogn, PGY1 HEENT: Yes: Head Aches Physical Examination Vital Signs: Vital Signs Temperature 98.9 F 03/06/17 09:00 Pulse Rate 93 H 03/06/17 09:00 Respiratory Rate 18 03/06/17 09:00 Blood Pressure 152/84 03/06/17 09:00 O2 Sat by Pulse Oximetry (%) 96 03/05/17 21:00 Labs: CBC, BMP 03/06/17 08:30 03/06/17 08:30 Visit type - Emergency Visit Emergency Visit: No - New Patient This patient is new to me today: Yes Date on this admission: 03/06/17 - Critical Care Critical Care patient: No
[2017-03-06] MEDS: LACTATED RINGERS SOLUTION 1,000 ML/1,000 ML INFUS.BAG IV SCH ×2 (15:50→23:33)
[2017-03-06] MEDS: HYDROmorphone HCL CARPU-JECT 2 MG/1 ML DISP.SYRIN IVPUSH PRN ×3 (15:53→22:02)
[2017-03-06 17:21] LABS: URINE APPEARANCE CLEAR; URINE BILIRUBIN NEGATIVE (NEGATIVE); URINE BLOOD 1+ (NEGATIVE); URINE COLOR STRAW; URINE GLUCOSE (UA) NEGATIVE (NEGATIVE); URINE KETONE 1+ (NEGATIVE); URINE LEUK ESTERASE NEGATIVE (NEGATIVE); URINE NITRITE NEGATIVE (NEGATIVE); URINE PROTEIN NEGATIVE (NEGATIVE); URINE UROBILINOGEN NEGATIVE mg/dL (0.2-1.0)
[2017-03-06 18:03] LABS: URINE RBC 1 /hpf (0-3)
[2017-03-06 19:43] LABS: URINE LEUK ESTERASE Negative (NEGATIVE)
[2017-03-07] MEDS: LORazepam 2 MG/ML SDV VIAL IVPUSH SCH ×5 (00:26→22:02)
[2017-03-07] MEDS: HYDROmorphone HCL CARPU-JECT 2 MG/1 ML DISP.SYRIN IVPUSH PRN ×6 (03:32→22:12)
[2017-03-07] MEDS: LACTATED RINGERS SOLUTION 1,000 ML/1,000 ML INFUS.BAG IV SCH ×3 (06:43→17:01)
--- NOTE | 2017-03-07 07:15 | PN ---
Progress Note, Physician Chief Complaint: abdominal pain History of Present Illness: 26yo male presented 4 days ago to the emergency department with alcoholic pancreatitis following an alcohol binge. He reports feeling much better, abdominal pain has improved, yesterday he reports a brief reccurence of pain after consuming the turkish ice from his clear tray. He has hand only low grade fever, Tmax 99 - Current Medication List Current Medications: Active Medications Hydromorphone HCl (Dilaudid Injection -) 1 mg IVPUSH Q3H PRN PRN Reason: PAIN Last Admin: 03/07/17 06:42 Dose: 1 mg Famotidine (Pepcid 20 Mg/12 Ml Push) 20 mg in 12 mls @ 144 mls/hr IVPUSH BID [facility] Last Admin: 03/06/17 21:38 Dose: 144 mls/hr Lactated Ringer's (Lactated Ringers Solution) 1,000 ml in 1,000 mls @ 150 mls/ hr IV ASDIR [facility] Last Admin: 03/07/17 06:43 Dose: 150 mls/hr Lorazepam (Ativan Injection -) 1 mg IVPUSH Q6H [facility] Last Admin: 03/07/17 06:41 Dose: 1 mg Lorazepam (Ativan Injection -) 1 mg IVPUSH Q6H PRN PRN Reason: WITHDRAWAL(CONT SUBST) Lorazepam (Ativan Injection -) 2 mg IVPUSH HS [facility] Last Admin: 03/06/17 21:38 Dose: 2 mg Ondansetron HCl (Zofran Injection) 4 mg IVPUSH Q6H PRN PRN Reason: NAUSEA AND/OR VOMITING Last Admin: 03/04/17 09:50 Dose: 4 mg Ondansetron HCl (Zofran Odt -) 8 mg SL Q6H PRN PRN Reason: NAUSEA AND/OR VOMITING - Objective Vital Signs: Vital Signs Temperature 98.8 F 03/07/17 06:00 Pulse Rate 89 03/07/17 06:00 Respiratory Rate 18 03/07/17 06:00 Blood Pressure 134/83 03/07/17 06:00 O2 Sat by Pulse Oximetry (%) 96 03/06/17 21:00 Vital Signs Period Temp Pulse Resp BP Sys/Goel Pulse Ox Last 24 Hr 98.4 F-99.0 F 78-96 18-20 134-156/80-89 96-96 Constitutional: Yes: Well Nourished, No Distress, Calm, Other (sleeping comfortably when i arrived to examine him) Eyes: Yes: Conjunctiva Clear, EOM Intact HENT: Yes: Atraumatic, Normocephalic Neck: Yes: Supple, Trachea Midline Cardiovascular: Yes: Regular Rate and Rhythm, S1, S2 Respiratory: Yes: Regular, CTA Bilaterally Gastrointestinal: Yes: Normal Bowel Sounds, Soft. No: Tenderness, Tenderness, Epigastrium, Tenderness, Rebound ...Rectal Exam: Yes: Deferred Musculoskeletal: No: Muscle Pain, Muscle Weakness Extremities: No: Cool, Cyanosis Edema: No Peripheral Pulses WNL: Yes Peripheral Pulses: Left Doralis Pedis: 2+, Right Dorsalis Pedis: 2+ Integumentary: No: Jaundice, Rash Neurological: Yes: Alert, Oriented Psychiatric: Yes: Alert, Oriented Labs: CBC,CMP WBC 16.6 K/mm3 (4.0-10.0) H 03/07/17 08:40 RBC 4.12 M/mm3 (4.00-5.60) 03/07/17 08:40 Hgb 12.3 GM/dL (11.7-16.9) 03/07/17 08:40 Hct 36.5 % (35.4-49) 03/07/17 08:40 MCV 88.5 fl (80-96) 03/07/17 08:40 MCH 29.8 pg (25.7-33.7) 03/07/17 08:40 MCHC 33.7 g/dl (32.0-35.9) 03/07/17 08:40 RDW 13.8 % (11.9-15.9) 03/07/17 08:40 Plt Count 287 K/MM3 (134-434) 03/07/17 08:40 MPV 6.8 fl (7.5-11.1) L 03/07/17 08:40 Neutrophils % 79.4 % (42.8-82.8) 03/07/17 08:40 Lymphocytes % 10.8 % (8-40) D 03/07/17 08:40 Monocytes % 9.1 % (3.8-10.2) 03/07/17 08:40 Eosinophils % 0.1 % (0-4.5) D 03/07/17 08:40 Basophils % 0.6 % (0-2.0) 03/07/17 08:40 Sodium 136 mmol/L (136-145) 03/07/17 08:40 Potassium 3.3 mmol/L (3.5-5.1) L 03/07/17 08:40 Chloride 98 mmol/L (98-107) 03/07/17 08:40 Carbon Dioxide 28 mmol/L (21-32) 03/07/17 08:40 Anion Gap 10 (8-16) 03/07/17 08:40 BUN 7 mg/dL (7-18) 03/07/17 08:40 Creatinine 0.7 mg/dL (0.7-1.3) 03/07/17 08:40 Creat Clearance w eGFR > 60 (>60) 03/07/17 08:40 Random Glucose 86 mg/dL (74-106) 03/07/17 08:40 Calcium 8.5 mg/dL (8.5-10.1) 03/07/17 08:40 Magnesium 1.9 mg/dL (1.8-2.4) 03/05/17 06:20 Total Bilirubin 0.7 mg/dL (0.2-1.0) 03/07/17 08:40 AST 16 U/L (15-37) D 03/07/17 08:40 ALT 20 U/L (12-78) 03/07/17 08:40 Alkaline Phosphatase 69 U/L (45-117) 03/07/17 08:40 Total Protein 6.3 g/dl (6.4-8.2) L 03/07/17 08:40 Albumin 2.9 g/dl (3.4-5.0) L 03/07/17 08:40 Triglycerides 55 mg/dL (35-160) 03/04/17 08:05 Cholesterol 213 mg/dL (50-200) H 03/04/17 08:05 Total LDL Cholesterol 137 mg/dL (5-100) H 03/04/17 08:05 HDL Cholesterol 61 mg/dL (40-60) H 03/04/17 08:05 Total Amylase 162 U/L (25-115) H D 03/06/17 08:30 Lipase 510 U/L (73-393) H 03/07/17 08:40 - ....Imaging X-ray: Report Reviewed, Image Reviewed Ultrasound: Report Reviewed, Image Reviewed (renal ultrasound was negative) Problem List - Problems (1) Alcohol-induced acute pancreatitis Assessment/Plan: 26yo male recovering from a episode of alcoholic pancreatitis, persistent leukocytosis 16.6 today, Lipase also hovering 510 today, transient worsened abdominal pain yesterday. would recommend additional bowel rest. MRCP without gallstones. GI on board. keep strict NPO with IVF with aggressive hydration, until pain/tenderness resolves trend labs GI/DVT prophylaxis detox consultation noted pain control prn will follow Code(s): K85.20 - ALCOHOL INDUCED ACUTE PANCREATITIS WITHOUT NECROSIS OR INFCT Qualifiers: Acute pancreatitis complication: no infection or necrosis Qualified Code(s) : K85.20 - Alcohol induced acute pancreatitis without necrosis or infection (2) Alcohol dependence, continuous drinking behavior Code(s): F10.20 - ALCOHOL DEPENDENCE, UNCOMPLICATED (3) Alcohol dependence with uncomplicated withdrawal Code(s): F10.230 - ALCOHOL DEPENDENCE WITH WITHDRAWAL, UNCOMPLICATED (4) Anxiety and depression Code(s): F41.9 - ANXIETY DISORDER, UNSPECIFIED; F32.9 - MAJOR DEPRESSIVE DISORDER, SINGLE EPISODE, UNSPECIFIED
[2017-03-07 08:57] LABS: BASOPHIL 0.6 % (0-2.0); EOSINOPHIL 0.1 % (0-4.5); MCH 29.8 pg (25.7-33.7); MCHC 33.7 g/dl (32.0-35.9); MEAN CELL VOLUME 88.5 fl (80-96); MEAN PLT VOLUME 6.8 fl (7.5-11.1); NEUTROPHILS 79.4 % (42.8-82.8); PLATELET COUNT 287 K/MM3 (134-434); RDW 13.8 % (11.9-15.9); WHITE BLOOD COUNT 16.6 K/mm3 (4.0-10.0)
[2017-03-07 09:29] LABS: ALBUMIN 2.9 g/dl (3.4-5.0); ALK PHOS 69 U/L (45-117); ANION GAP 10 (8-16); BILIRUBIN,TOTAL 0.7 mg/dL (0.2-1.0); CALCIUM 8.5 mg/dL (8.5-10.1); CO2 28 mmol/L (21-32); CREATININE 0.7 mg/dL (0.7-1.3); GLUCOSE,RANDOM 86 mg/dL (74-106); SGOT/AST 16 U/L (15-37); SGPT/ALT 20 U/L (12-78); TOT PROT 6.3 g/dl (6.4-8.2)
--- NOTE | 2017-03-07 10:42 | PN ---
Progress Note, Physician Chief Complaint: awaek mod distress abd pain events and records reviewed - Current Medication List Current Medications: Active Medications Hydromorphone HCl (Dilaudid Injection -) 1 mg IVPUSH Q3H PRN PRN Reason: PAIN Last Admin: 03/07/17 06:42 Dose: 1 mg Famotidine (Pepcid 20 Mg/12 Ml Push) 20 mg in 12 mls @ 144 mls/hr IVPUSH BID [facility] Last Admin: 03/06/17 21:38 Dose: 144 mls/hr Lactated Ringer's (Lactated Ringers Solution) 1,000 ml in 1,000 mls @ 150 mls/ hr IV ASDIR [facility] Last Admin: 03/07/17 06:43 Dose: 150 mls/hr Lorazepam (Ativan Injection -) 1 mg IVPUSH Q6H [facility] Last Admin: 03/07/17 06:41 Dose: 1 mg Lorazepam (Ativan Injection -) 1 mg IVPUSH Q6H PRN PRN Reason: WITHDRAWAL(CONT SUBST) Lorazepam (Ativan Injection -) 2 mg IVPUSH HS [facility] Last Admin: 03/06/17 21:38 Dose: 2 mg Ondansetron HCl (Zofran Injection) 4 mg IVPUSH Q6H PRN PRN Reason: NAUSEA AND/OR VOMITING Last Admin: 03/04/17 09:50 Dose: 4 mg Ondansetron HCl (Zofran Odt -) 8 mg SL Q6H PRN PRN Reason: NAUSEA AND/OR VOMITING - Objective Vital Signs: Vital Signs Temperature 98.8 F 03/07/17 06:00 Pulse Rate 89 03/07/17 06:00 Respiratory Rate 18 03/07/17 06:00 Blood Pressure 134/83 03/07/17 06:00 O2 Sat by Pulse Oximetry (%) 96 03/06/17 21:00 Constitutional: Yes: Moderate Distress Eyes: Yes: WNL HENT: Yes: WNL Neck: Yes: WNL Cardiovascular: Yes: WNL Respiratory: Yes: WNL Gastrointestinal: Yes: Tenderness Genitourinary: Yes: WNL Musculoskeletal: Yes: WNL Extremities: Yes: WNL Edema: No Peripheral Pulses WNL: Yes Integumentary: Yes: WNL Wound/Incision: Yes: Clean/Dry Neurological: Yes: WNL ...Motor Strength: WNL Psychiatric: Yes: WNL Labs: CBC, BMP 03/07/17 08:40 03/07/17 08:40 Problem List - Problems (1) Acute pancreatitis Code(s): K85.90 - ACUTE PANCREATITIS WITHOUT NECROSIS OR INFECTION, UNSP Qualifiers: Qualified Code(s): K85.20 - Alcohol induced acute pancreatitis without necrosis or infection (2) Alcohol dependence, continuous drinking behavior Code(s): F10.20 - ALCOHOL DEPENDENCE, UNCOMPLICATED (3) Alcohol-induced acute pancreatitis Code(s): K85.20 - ALCOHOL INDUCED ACUTE PANCREATITIS WITHOUT NECROSIS OR INFCT Qualifiers: Qualified Code(s): K85.20 - Alcohol induced acute pancreatitis without necrosis or infection Assessment/Plan NPO IVF PAIN CONTROL SURGERY EVAL APPRECIATED LIPASE SLIGHTLY ELEVATED LEUKOCYTOSIS
[2017-03-07] MEDS ORDERED: PT OWN MED DRAWER 7, Y5N ONE ×2 (11:42→21:31)
[2017-03-07] MEDS: FAMOTIDINE IV 20 MG/12 ML VIAL IVPUSH SCH ×2 (12:33→22:01)
--- NOTE | 2017-03-07 13:16 | PN ---
Progress Note, Physician History of Present Illness: Chart reviewed. Still has epigastric pain. Leukocutosis, afebrile. Normal BUN, Cr. Was on liquids yesterday and had worsen epigastric pain. - Current Medication List Current Medications: Active Medications Hydromorphone HCl (Dilaudid Injection -) 1 mg IVPUSH Q3H PRN PRN Reason: PAIN Last Admin: 03/07/17 11:27 Dose: 1 mg Famotidine (Pepcid 20 Mg/12 Ml Push) 20 mg in 12 mls @ 144 mls/hr IVPUSH BID [facility] Last Admin: 03/07/17 12:33 Dose: 144 mls/hr Lactated Ringer's (Lactated Ringers Solution) 1,000 ml in 1,000 mls @ 150 mls/ hr IV [facility] Last Admin: 03/07/17 06:43 Dose: 150 mls/hr Lorazepam (Ativan Injection -) 1 mg IVPUSH Q6H [facility] Last Admin: 03/07/17 12:33 Dose: 1 mg Lorazepam (Ativan Injection -) 1 mg IVPUSH Q6H PRN PRN Reason: WITHDRAWAL(CONT SUBST) Lorazepam (Ativan Injection -) 2 mg IVPUSH HS [facility] Last Admin: 03/06/17 21:38 Dose: 2 mg Ondansetron HCl (Zofran Injection) 4 mg IVPUSH Q6H PRN PRN Reason: NAUSEA AND/OR VOMITING Last Admin: 03/04/17 09:50 Dose: 4 mg Ondansetron HCl (Zofran Odt -) 8 mg SL Q6H PRN PRN Reason: NAUSEA AND/OR VOMITING Last Admin: 03/07/17 11:23 Dose: 8 mg - Objective Vital Signs: Vital Signs Temperature 98.9 F 03/07/17 10:00 Pulse Rate 88 03/07/17 10:00 Respiratory Rate 18 03/07/17 10:00 Blood Pressure 137/93 03/07/17 10:00 O2 Sat by Pulse Oximetry (%) 96 03/06/17 21:00 Constitutional: Yes: No Distress, Calm Eyes: Yes: Conjunctiva Clear HENT: Yes: Atraumatic Neck: Yes: Supple Cardiovascular: Yes: Regular Rate and Rhythm Respiratory: Yes: Regular Gastrointestinal: Yes: Normal Bowel Sounds, Soft, Tenderness. No: Ascites, Distention, Melena, Rectal Bleeding, Vomiting Neurological: Yes: Alert, Oriented Labs: CBC, BMP 03/07/17 08:40 03/07/17 08:40 Abnormal Lab Results 03/06/17 03/07/17 03/07/17 14:56 08:40 08:40 WBC 16.6 H MPV 6.8 L Potassium 3.3 L Total Protein 6.3 L Albumin 2.9 L Lipase 510 H Urine Ketones 1+ H Urine Blood 1+ H Problem List - Problems (1) Acute pancreatitis Code(s): K85.90 - ACUTE PANCREATITIS WITHOUT NECROSIS OR INFECTION, UNSP Qualifiers: Pancreatitis type: alcohol induced Acute pancreatitis complication: unspecified Qualified Code(s): K85.20 - Alcohol induced acute pancreatitis without necrosis or infection (2) Alcohol dependence with uncomplicated withdrawal Code(s): F10.230 - ALCOHOL DEPENDENCE WITH WITHDRAWAL, UNCOMPLICATED Assessment/Plan Recurrent, acute mild alcohol-related pancreatitis. Not improving. increase IVF 350 cc/hr Pain management and antiemetics NPO today CBC, CMP daily ETOH counseling repeat CT pancreatic protocol
[2017-03-07] MEDS ORDERED: ONDANSETRON 4 MG/2 ML VIAL IVPB ONE (16:30)
[2017-03-07] MEDS ORDERED: POTASSIUM CHLORIDE 20 MEQ in SODIUM CHLORIDE 250 ML IVPB ONE (20:30)
[2017-03-08] MEDS: LORazepam 2 MG/ML SDV VIAL IVPUSH SCH ×5 (00:38→21:53)
[2017-03-08] MEDS: HYDROmorphone HCL CARPU-JECT 2 MG/1 ML DISP.SYRIN IVPUSH PRN ×2 (01:27→06:05)
[2017-03-08] MEDS: LACTATED RINGERS SOLUTION 1,000 ML/1,000 ML INFUS.BAG IV SCH ×7 (01:29→23:51)
[2017-03-08 07:59] LABS: MCH 30.5 pg (25.7-33.7); MCHC 34.8 g/dl (32.0-35.9); MEAN CELL VOLUME 87.6 fl (80-96); MEAN PLT VOLUME 6.7 fl (7.5-11.1); PLATELET COUNT 298 K/MM3 (134-434); RDW 13.7 % (11.9-15.9)
[2017-03-08 08:23] LABS: ALBUMIN 2.7 g/dl (3.4-5.0); ANION GAP 11 (8-16); CALCIUM 8.2 mg/dL (8.5-10.1); CO2 24 mmol/L (21-32); CREATININE 0.7 mg/dL (0.7-1.3); GLUCOSE,RANDOM 77 mg/dL (74-106); SGOT/AST 26 U/L (15-37); SGPT/ALT 24 U/L (12-78)
[2017-03-08 08:24] LABS: ALK PHOS 73 U/L (45-117); BILIRUBIN,TOTAL 0.8 mg/dL (0.2-1.0); TOT PROT 6.2 g/dl (6.4-8.2)
--- NOTE | 2017-03-08 09:23 | PN ---
Progress Note, Physician Chief Complaint: STILL WITH ABD PAIN EVENTS REVIEWED - Current Medication List Current Medications: Active Medications Hydromorphone HCl (Dilaudid Injection -) 1 mg IVPUSH Q3H PRN PRN Reason: PAIN Last Admin: 03/08/17 06:05 Dose: 1 mg Famotidine (Pepcid 20 Mg/12 Ml Push) 20 mg in 12 mls @ 144 mls/hr IVPUSH BID [facility] Last Admin: 03/07/17 22:01 Dose: 144 mls/hr Lactated Ringer's (Lactated Ringers Solution) 1,000 ml in 1,000 mls @ 125 mls/ hr IV ASDIR [facility] Last Admin: 03/08/17 01:29 Dose: 125 mls/hr Lorazepam (Ativan Injection -) 1 mg IVPUSH Q6H [facility] Last Admin: 03/08/17 06:04 Dose: 1 mg Lorazepam (Ativan Injection -) 1 mg IVPUSH Q6H PRN PRN Reason: WITHDRAWAL(CONT SUBST) Lorazepam (Ativan Injection -) 2 mg IVPUSH [facility] Last Admin: 03/07/17 22:02 Dose: 2 mg Ondansetron HCl (Zofran Injection) 4 mg IVPUSH Q6H PRN PRN Reason: NAUSEA AND/OR VOMITING Last Admin: 03/04/17 09:50 Dose: 4 mg Ondansetron HCl (Zofran Odt -) 8 mg SL Q6H PRN PRN Reason: NAUSEA AND/OR VOMITING Last Admin: 03/07/17 11:23 Dose: 8 mg - Objective Vital Signs: Vital Signs Temperature 100.3 F H 03/08/17 06:00 Pulse Rate 104 H 03/08/17 06:00 Respiratory Rate 20 03/08/17 06:00 Blood Pressure 151/99 03/08/17 06:00 O2 Sat by Pulse Oximetry (%) 96 03/07/17 21:00 Constitutional: Yes: Moderate Distress Eyes: Yes: WNL HENT: Yes: WNL Neck: Yes: WNL Cardiovascular: Yes: WNL Respiratory: Yes: WNL Gastrointestinal: Yes: Tenderness Genitourinary: Yes: WNL Musculoskeletal: Yes: WNL Extremities: Yes: WNL Edema: No Peripheral Pulses WNL: Yes Integumentary: Yes: WNL Wound/Incision: Yes: Clean/Dry Neurological: Yes: WNL ...Motor Strength: WNL Psychiatric: Yes: WNL Labs: CBC, BMP 03/08/17 07:35 03/08/17 07:35 Problem List - Problems (1) Acute pancreatitis Code(s): K85.90 - ACUTE PANCREATITIS WITHOUT NECROSIS OR INFECTION, UNSP Qualifiers: Pancreatitis type: alcohol induced Acute pancreatitis complication: unspecified Qualified Code(s): K85.20 - Alcohol induced acute pancreatitis without necrosis or infection (2) Alcohol dependence, continuous drinking behavior Code(s): F10.20 - ALCOHOL DEPENDENCE, UNCOMPLICATED (3) Alcohol-induced acute pancreatitis Code(s): K85.20 - ALCOHOL INDUCED ACUTE PANCREATITIS WITHOUT NECROSIS OR INFCT Qualifiers: Acute pancreatitis complication: no infection or necrosis Qualified Code(s) : K85.20 - Alcohol induced acute pancreatitis without necrosis or infection Assessment/Plan NPO IVF PAIN CONTROL SURGERY EVAL APPRECIATED LIPASE SLIGHTLY ELEVATED LEUKOCYTOSIS INCREASED CT ABD PENDING RESULTS
[2017-03-08] MEDS ORDERED: PT OWN MED DRAWER 7, Y5N ONE (09:50)
[2017-03-08] MEDS ORDERED: HYDROmorphone HCL CARPU-JECT 2 MG/1 ML DISP.SYRIN ONE ×3 (09:55→20:06)
[2017-03-08] MEDS: HYDROmorphone HCL CARPU-JECT 1 MG/1 ML DISP.SYRIN IVPB PRN ×3 (09:59→20:15)
[2017-03-08] MEDS: FAMOTIDINE IV 20 MG/12 ML VIAL IVPUSH SCH ×2 (09:59→23:00)
--- NOTE | 2017-03-08 11:02 | PN ---
Progress Note, Physician Chief Complaint: epigastric pain History of Present Illness: No overnight events. Pt states pain is better, comes and goes at times, has been on left side. Seen and examined in bed. No nausea or vomiting. Had more pain with clears, back to NPO with IVF running. Had CT yesterday, showed pancreatitis with small spot of pancreatic necrosis anteriorly (~2cm), and some peripancreatic necrosis with fatty changes but no drainable collection, no mass. Low grade temps in 100s. Had soft BM. - Current Medication List Current Medications: Active Medications Hydromorphone HCl (Dilaudid Injection -) 1 mg IVPB Q4H PRN PRN Reason: PAIN Last Admin: 03/08/17 09:59 Dose: 1 mg Famotidine (Pepcid 20 Mg/12 Ml Push) 20 mg in 12 mls @ 144 mls/hr IVPUSH BID [facility] Last Admin: 03/08/17 09:59 Dose: 144 mls/hr Lactated Ringer's (Lactated Ringers Solution) 1,000 ml in 1,000 mls @ 125 mls/ hr IV ASDIR [facility] Last Admin: 03/08/17 10:02 Dose: 125 mls/hr Lorazepam (Ativan Injection -) 1 mg IVPUSH Q6H [facility] Last Admin: 03/08/17 06:04 Dose: 1 mg Lorazepam (Ativan Injection -) 1 mg IVPUSH Q6H PRN PRN Reason: WITHDRAWAL(CONT SUBST) Lorazepam (Ativan Injection -) 2 mg IVPUSH HS [facility] Last Admin: 03/07/17 22:02 Dose: 2 mg Ondansetron HCl (Zofran Injection) 4 mg IVPUSH Q6H PRN PRN Reason: NAUSEA AND/OR VOMITING Last Admin: 03/04/17 09:50 Dose: 4 mg Ondansetron HCl (Zofran Odt -) 8 mg SL Q6H PRN PRN Reason: NAUSEA AND/OR VOMITING Last Admin: 03/07/17 11:23 Dose: 8 mg - Objective Vital Signs: Vital Signs Temperature 100.3 F H 03/08/17 06:00 Pulse Rate 104 H 03/08/17 06:00 Respiratory Rate 20 03/08/17 06:00 Blood Pressure 151/99 03/08/17 06:00 O2 Sat by Pulse Oximetry (%) 96 03/07/17 21:00 Vital Signs Period Temp Pulse Resp BP Sys/Goel Pulse Ox Last 24 Hr 99.0 F-100.3 F 76-104 20-20 149-151/87-99 96-96 Constitutional: Yes: Well Nourished, No Distress, Calm Eyes: Yes: Conjunctiva Clear, EOM Intact. No: Sclera Icterus HENT: Yes: Atraumatic, Normocephalic Cardiovascular: Yes: Pulse Irregular. No: Bradycardia, Tachycardia Respiratory: Yes: Regular, CTA Bilaterally Gastrointestinal: Yes: Soft, Distention (mild), Tenderness (epigastric, mild ( much better than previously)), Tenderness, Epigastrium. No: Tenderness, Rebound Genitourinary: Yes: CVA Tenderness - Left (mild), CVA Tenderness - Right (mild) Extremities: No: Cool, Cyanosis Integumentary: No: Jaundice, Rash Neurological: Yes: Alert, Oriented Psychiatric: Yes: Alert, Oriented Labs: CBC, BMP 03/08/17 07:35 03/08/17 07:35 CMP Sodium 133 mmol/L (136-145) L 03/08/17 07:35 Potassium 3.5 mmol/L (3.5-5.1) 03/08/17 07:35 Chloride 98 mmol/L (98-107) 03/08/17 07:35 Carbon Dioxide 24 mmol/L (21-32) 03/08/17 07:35 Anion Gap 11 (8-16) 03/08/17 07:35 BUN 10 mg/dL (7-18) D 03/08/17 07:35 Creatinine 0.7 mg/dL (0.7-1.3) 03/08/17 07:35 Creat Clearance w eGFR > 60 (>60) 03/08/17 07:35 Random Glucose 77 mg/dL (74-106) 03/08/17 07:35 Calcium 8.2 mg/dL (8.5-10.1) L 03/08/17 07:35 Magnesium 1.9 mg/dL (1.8-2.4) 03/05/17 06:20 Total Bilirubin 0.8 mg/dL (0.2-1.0) 03/08/17 07:35 AST 26 U/L (15-37) D 03/08/17 07:35 ALT 24 U/L (12-78) 03/08/17 07:35 Alkaline Phosphatase 73 U/L (45-117) 03/08/17 07:35 Total Protein 6.2 g/dl (6.4-8.2) L 03/08/17 07:35 Albumin 2.7 g/dl (3.4-5.0) L 03/08/17 07:35 Lipase 1233 U/L (73-393) H 03/08/17 07:35 lipase back up from 500, wbc remains elevated glucose a little low - ....Imaging Cat Scan: Report Reviewed, Image Reviewed Problem List - Problems (1) Alcohol-induced acute pancreatitis Assessment/Plan: keep NPO/IVF with aggressive hydration, until pain/tenderness completely resolve would add D5 to fluids trend labs replete lytes prn pain control prn GI/DVT prophylaxis CT results noted with very small area of pancreatic necrosis GI on board detox consultation noted no acute surgical issues at this time will follow peripherally, please call with any questions Code(s): K85.20 - ALCOHOL INDUCED ACUTE PANCREATITIS WITHOUT NECROSIS OR INFCT Qualifiers: Acute pancreatitis complication: uninfected necrosis Qualified Code(s): K85.21 - Alcohol induced acute pancreatitis with uninfected necrosis (2) Alcohol dependence, continuous drinking behavior Code(s): F10.20 - ALCOHOL DEPENDENCE, UNCOMPLICATED (3) Drug abuse, marijuana Code(s): F12.10 - CANNABIS ABUSE, UNCOMPLICATED (4) Percocet use disorder, mild, abuse Assessment/Plan: doing ok on dilaudid detox consult on board Code(s): F11.10 - OPIOID ABUSE, UNCOMPLICATED
--- NOTE | 2017-03-08 12:46 | PN ---
S Progress Note (SOAP) Subjective: still NPO, started on fluids last night with increased lipase and pain resulting , stable on current medication regiment ativan and dilaudid Objective: 03/08/17 12:44 Vital Signs - 8 hr 03/08/17 03/08/17 06:00 12:11 Temperature 100.3 F H 99.5 F Pulse Rate 104 H 75 Respiratory 20 20 Rate Blood Pressure 151/99 150/84 febrile Laboratory Results - last 24 hr 03/04/17 03/08/17 03/08/17 14:00 07:35 07:35 WBC 17.0 H RBC 3.90 L Hgb 11.9 Hct 34.2 L MCV 87.6 MCH 30.5 MCHC 34.8 RDW 13.7 Plt Count 298 MPV 6.7 L Sodium 133 L Potassium 3.5 Chloride 98 Carbon Dioxide 24 Anion Gap 11 BUN 10 D Creatinine 0.7 Creat Clearance w eGFR > 60 Random Glucose 77 Calcium 8.2 L Total Bilirubin 0.8 AST 26 D ALT 24 Alkaline Phosphatase 73 Total Protein 6.2 L Albumin 2.7 L Lipase 1233 H IgG4 46 elevated wbc and lipas Assessment: 03/08/17 12:45 cont current medications when taking medications by mouth will detox, when taking foods switch medications to po
--- NOTE | 2017-03-08 13:25 | PN ---
Progress Note, Physician History of Present Illness: Chart reviewed. CT results noted. Lipse level is up c/o epigastric pain and nausea. IVF rate was decreased to 125 cc/hr overnight (? ) - Current Medication List Current Medications: Active Medications Hydromorphone HCl (Dilaudid Injection -) 1 mg IVPB Q4H PRN PRN Reason: PAIN Last Admin: 03/08/17 09:59 Dose: 1 mg Famotidine (Pepcid 20 Mg/12 Ml Push) 20 mg in 12 mls @ 144 mls/hr IVPUSH BID [facility] Last Admin: 03/08/17 09:59 Dose: 144 mls/hr Lorazepam (Ativan Injection -) 1 mg IVPUSH Q6H [facility] Last Admin: 03/08/17 12:17 Dose: 1 mg Lorazepam (Ativan Injection -) 1 mg IVPUSH Q6H PRN PRN Reason: WITHDRAWAL(CONT SUBST) Lorazepam (Ativan Injection -) 2 mg IVPUSH HS [facility] Last Admin: 03/07/17 22:02 Dose: 2 mg Ondansetron HCl (Zofran Injection) 4 mg IVPUSH Q6H PRN PRN Reason: NAUSEA AND/OR VOMITING Last Admin: 03/04/17 09:50 Dose: 4 mg Ondansetron HCl (Zofran Odt -) 8 mg SL Q6H PRN PRN Reason: NAUSEA AND/OR VOMITING Last Admin: 03/07/17 11:23 Dose: 8 mg - Objective Vital Signs: Vital Signs Temperature 99.5 F 03/08/17 12:11 Pulse Rate 75 03/08/17 12:11 Respiratory Rate 20 03/08/17 12:11 Blood Pressure 150/84 03/08/17 12:11 O2 Sat by Pulse Oximetry (%) 96 03/07/17 21:00 Constitutional: Yes: No Distress Eyes: Yes: Conjunctiva Clear HENT: Yes: Atraumatic Neck: Yes: Supple Cardiovascular: Yes: Regular Rate and Rhythm Respiratory: Yes: Regular Gastrointestinal: Yes: Soft Neurological: Yes: Alert, Oriented Labs: CBC, BMP 03/08/17 07:35 03/08/17 07:35 Abnormal Lab Results 03/08/17 03/08/17 07:35 07:35 WBC 17.0 H RBC 3.90 L Hct 34.2 L MPV 6.7 L Sodium 133 L Calcium 8.2 L Total Protein 6.2 L Albumin 2.7 L Lipase 1233 H - ....Imaging Cat Scan: Report Reviewed Problem List - Problems (1) Acute pancreatitis Code(s): K85.90 - ACUTE PANCREATITIS WITHOUT NECROSIS OR INFECTION, UNSP Qualifiers: Pancreatitis type: alcohol induced Acute pancreatitis complication: unspecified Qualified Code(s): K85.20 - Alcohol induced acute pancreatitis without necrosis or infection (2) Alcohol dependence with uncomplicated withdrawal Code(s): F10.230 - ALCOHOL DEPENDENCE WITH WITHDRAWAL, UNCOMPLICATED Assessment/Plan Recurrent, acute mild alcohol-related pancreatitis. Not improving. Please keep IVF @ 350 cc/hr. Pain management and antiemetics NPO except medications, ice, plain water CBC, CMP daily ETOH counseling
--- NOTE | 2017-03-08 17:56 | PN ---
Progress Note (short form) - Note Progress Note: ID consult dictated imp/reccd low grade temps yesterday persistent leukocytosis acute pancreatitis does not look toxic/well appearing most likely fever secondary to pancratic inflammation wants to eat cultures have been sent would get cxray to r/o pneumonia- some crackles left lung base if he has high grade fever would reculture and start imipenem Problem List - Problems (1) Acute pancreatitis Code(s): K85.90 - ACUTE PANCREATITIS WITHOUT NECROSIS OR INFECTION, UNSP Qualifiers: Pancreatitis type: alcohol induced Acute pancreatitis complication: unspecified Qualified Code(s): K85.20 - Alcohol induced acute pancreatitis without necrosis or infection (2) Fever Code(s): R50.9 - FEVER, UNSPECIFIED
--- NOTE | 2017-03-08 21:54 | CONS ---
INFECTIOUS DISEASE CONSULTATION DATE OF CONSULTATION: DATE OF DICTATION: 03/08/2017 REQUESTING PHYSICIAN: Amado Alfonso MD HISTORY OF PRESENT ILLNESS: This is a 26-year-old man who was originally admitted on March 03 with acute pancreatitis. He has a history of alcohol use. He was admitted and treated with IV fluids and n.p.o. and pain medicines. He was also seen by Surgery and GI. He was seen as well by the detoxification doctor and is being managed for alcohol withdrawal, who is managing him as well for withdrawal. He is awake and alert. He reports that he had some increased abdominal pain yesterday; for which, a CAT scan was repeated, and he had some low-grade fever as well with a T-max of 100.3. I am asked to see him regarding the fever. Currently, he is 99.1. He reports his abdominal pain is improved, though he did get some pain medicine this afternoon. He is wondering when he can eat. He is, in no way, looking toxic. He denies any shortness of breath. He had a bowel movement today. CURRENT MEDICATIONS: Include Zofran, Ativan, famotidine, lactated Ringer's, and Dilaudid. He does not take any medicines at home. PAST MEDICAL HISTORY: Notable for he had an episode of pancreatitis he thinks when he was seen in the ER in [place], [place], and discharged. SOCIAL HISTORY: He lives at home. 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 He uses marijuana, and he uses prescription Percocet. He also drinks actively vodka daily. REVIEW OF SYSTEMS: He had a bowel movement today. He actually wants to eat. PHYSICAL EXAMINATION: General: He is awake and alert. Vital Signs: His temperature is 99.1, pulse is 74, blood pressure 159/96, respiratory rate is 20. He is saturating 96% on room air. HEENT: He is normocephalic. His eyes are anicteric. Neck: Supple. Lungs: Have crackles at the left base. Right lung is clear. Heart: Regular rate and rhythm. Abdomen: Soft. It is not distended. He has bowel sounds. Currently, no pain on palpation. Extremities: Without edema. He has no phlebitis. LABORATORY DATA: White count is 17. It has been 17 for the last 4 days. His BUN is 10 and creatinine 0.7. His alkaline phosphatase yesterday was 510. Today, it is 1233. On admission, he had a lipase of 15,567. Urinalysis is negative. Most recent CAT scan of his abdomen and pelvis is notable for areas of increased attenuation suggestive of peripancreatic necrosis. There is no enhancing pancreatic mass and no ductal dilatations. In summary, this is a young man with acute pancreatitis, low-grade fever, persistent leukocytosis, I suspect all on the basis of pancreatic inflammation. He does not look toxic to suggest infected pancreatic necrosis, and CAT scan has no findings of abscess. Cultures were ordered today and sent. I would get a chest x-ray to rule out pneumonia given the lung findings on exam. If he has high-grade fever, I would re-culture and start him on imipenem to treat him for presumptive infected necrosis. Further recommendations to follow. I discussed the case with the GI doctor, . ANTONIA YOUSSEF M.D. ANTONIO/[id number]
[2017-03-08] MEDS ORDERED: PIPERACILLIN/TAZOB 4.5 GM/100 ML PRE-DOCKED IVPB SCH (23:30)
[2017-03-09] MEDS ORDERED: HYDROmorphone HCL CARPU-JECT 2 MG/1 ML DISP.SYRIN ONE ×5 (00:20→18:56)
[2017-03-09] MEDS: PIPERACILLIN/TAZOB 4.5 GM 4.5 GM in DEXTROSE 5%-WATER - 100 ML IVPB SCH ×3 (00:23→17:39)
[2017-03-09] MEDS: HYDROmorphone HCL CARPU-JECT 1 MG/1 ML DISP.SYRIN IVPB PRN ×5 (00:23→18:59)
[2017-03-09] MEDS: LORazepam 2 MG/ML SDV VIAL IVPUSH SCH ×5 (00:24→21:23)
[2017-03-09] MEDS: LACTATED RINGERS SOLUTION 1,000 ML/1,000 ML INFUS.BAG IV SCH ×3 (03:38→21:23)
[2017-03-09 07:26] LABS: MCH 30.3 pg (25.7-33.7); MCHC 34.8 g/dl (32.0-35.9); MEAN CELL VOLUME 87.1 fl (80-96); MEAN PLT VOLUME 6.7 fl (7.5-11.1); PLATELET COUNT 301 K/MM3 (134-434); RDW 13.7 % (11.9-15.9); WHITE BLOOD COUNT 16.6 K/mm3 (4.0-10.0)
[2017-03-09 08:02] LABS: ALBUMIN 2.6 g/dl (3.4-5.0); ALK PHOS 75 U/L (45-117); ANION GAP 8 (8-16); BILIRUBIN,TOTAL 0.6 mg/dL (0.2-1.0); CALCIUM 8.6 mg/dL (8.5-10.1); CO2 30 mmol/L (21-32); CREATININE 0.8 mg/dL (0.7-1.3); GLUCOSE,RANDOM 99 mg/dL (74-106); SGOT/AST 27 U/L (15-37); SGPT/ALT 28 U/L (12-78); TOT PROT 5.9 g/dl (6.4-8.2)
[2017-03-09] MEDS ORDERED: PT OWN MED DRAWER 7, Y5N ONE ×3 (09:57→21:13)
--- NOTE | 2017-03-09 10:22 | PN ---
Progress Note, Physician History of Present Illness: abd pain better - Current Medication List Current Medications: Active Medications Hydromorphone HCl (Dilaudid Injection -) 1 mg IVPB Q4H PRN PRN Reason: PAIN Last Admin: 03/09/17 10:02 Dose: 1 mg Famotidine (Pepcid 20 Mg/12 Ml Push) 20 mg in 12 mls @ 144 mls/hr IVPUSH BID [facility] Last Admin: 03/08/17 23:00 Dose: 144 mls/hr Lactated Ringer's (Lactated Ringers Solution) 1,000 ml in 1,000 mls @ 350 mls/ hr IV [facility] Last Admin: 03/09/17 06:42 Dose: 350 mls/hr Piperacillin Sod/Tazobactam (Sod 4.5 gm/ Dextrose) 100 mls @ 200 mls/hr IVPB Q8H-IV [facility] Last Admin: 03/09/17 00:23 Dose: 200 mls/hr Lorazepam (Ativan Injection -) 1 mg IVPUSH Q6H [facility] Last Admin: 03/09/17 05:43 Dose: 1 mg Lorazepam (Ativan Injection -) 1 mg IVPUSH Q6H PRN PRN Reason: WITHDRAWAL(CONT SUBST) Lorazepam (Ativan Injection -) 2 mg IVPUSH HS [facility] Last Admin: 03/08/17 21:53 Dose: 2 mg Ondansetron HCl (Zofran Injection) 4 mg IVPUSH Q6H PRN PRN Reason: NAUSEA AND/OR VOMITING Last Admin: 03/04/17 09:50 Dose: 4 mg Ondansetron HCl (Zofran Odt -) 8 mg SL Q6H PRN PRN Reason: NAUSEA AND/OR VOMITING Last Admin: 03/07/17 11:23 Dose: 8 mg - Objective Vital Signs: Vital Signs Temperature 100.1 F H 03/09/17 06:00 Pulse Rate 94 H 03/09/17 06:00 Respiratory Rate 20 03/09/17 06:00 Blood Pressure 150/80 03/09/17 06:00 O2 Sat by Pulse Oximetry (%) 96 03/08/17 21:00 Cardiovascular: Yes: S1, S2 Respiratory: Yes: Rales (at the left base) Gastrointestinal: Yes: Normal Bowel Sounds, Soft, Tenderness, Epigastrium Labs: CBC, BMP 03/09/17 06:40 03/09/17 06:40 Problem List - Problems (1) Pneumonia Assessment/Plan: NPO IVF IV ABX FOLLOW UP LABS Code(s): J18.9 - PNEUMONIA, UNSPECIFIED ORGANISM (2) Acute pancreatitis Assessment/Plan: REPEAT CXR ON ABX PULM CONSULT Code(s): K85.90 - ACUTE PANCREATITIS WITHOUT NECROSIS OR INFECTION, UNSP Qualifiers: Pancreatitis type: alcohol induced Acute pancreatitis complication: unspecified Qualified Code(s): K85.20 - Alcohol induced acute pancreatitis without necrosis or infection
--- NOTE | 2017-03-09 11:04 | PN ---
Progress Note, Physician Chief Complaint: epigastric pain History of Present Illness: No overnight events. Pt states pain is still getting better, comes and goes at times, has been more on left side. Seen and examined in bed. No nausea or vomiting. Low grade temps in 100s. Having soft BMs. Using IS, gets ~2000ml. Not really up and ambulating. Hungry for food. Taking ice chips. Had CXR yesterday showing some left basal changes. Zosyn started by ID. - Current Medication List Current Medications: Active Medications Hydromorphone HCl (Dilaudid Injection -) 1 mg IVPB Q4H PRN PRN Reason: PAIN Last Admin: 03/09/17 10:02 Dose: 1 mg Famotidine (Pepcid 20 Mg/12 Ml Push) 20 mg in 12 mls @ 144 mls/hr IVPUSH BID [facility] Last Admin: 03/08/17 23:00 Dose: 144 mls/hr Lactated Ringer's (Lactated Ringers Solution) 1,000 ml in 1,000 mls @ 350 mls/ hr IV [facility] Last Admin: 03/09/17 06:42 Dose: 350 mls/hr Piperacillin Sod/Tazobactam (Sod 4.5 gm/ Dextrose) 100 mls @ 200 mls/hr IVPB Q8H-IV [facility] Last Admin: 03/09/17 00:23 Dose: 200 mls/hr Lorazepam (Ativan Injection -) 1 mg IVPUSH Q6H [facility] Last Admin: 03/09/17 05:43 Dose: 1 mg Lorazepam (Ativan Injection -) 1 mg IVPUSH Q6H PRN PRN Reason: WITHDRAWAL(CONT SUBST) Lorazepam (Ativan Injection -) 2 mg IVPUSH HS [facility] Last Admin: 03/08/17 21:53 Dose: 2 mg Ondansetron HCl (Zofran Injection) 4 mg IVPUSH Q6H PRN PRN Reason: NAUSEA AND/OR VOMITING Last Admin: 03/04/17 09:50 Dose: 4 mg Ondansetron HCl (Zofran Odt -) 8 mg SL Q6H PRN PRN Reason: NAUSEA AND/OR VOMITING Last Admin: 03/07/17 11:23 Dose: 8 mg - Objective Vital Signs: Vital Signs Temperature 100.1 F H 03/09/17 06:00 Pulse Rate 94 H 03/09/17 06:00 Respiratory Rate 20 03/09/17 06:00 Blood Pressure 150/80 03/09/17 06:00 O2 Sat by Pulse Oximetry (%) 96 03/08/17 21:00 Constitutional: Yes: Well Nourished, No Distress, Calm Eyes: Yes: Conjunctiva Clear, EOM Intact. No: Sclera Icterus Cardiovascular: Yes: Pulse Irregular. No: Bradycardia, Tachycardia Respiratory: Yes: Regular, CTA Bilaterally, Diminished (slightly left base) Gastrointestinal: Yes: Soft, Distention, Tenderness (mild epigastric and more left posterior costal margin/CVA), Tenderness, Epigastrium (mild). No: Tenderness, Rebound Genitourinary: Yes: CVA Tenderness - Left. No: CVA Tenderness - Right Extremities: No: Cool, Cyanosis Edema: No Integumentary: No: Jaundice, Rash Neurological: Yes: Alert, Oriented Psychiatric: Yes: Alert, Oriented Labs: CBC, BMP 03/09/17 06:40 03/09/17 06:40 CMP Sodium 135 mmol/L (136-145) L 03/09/17 06:40 Potassium 3.5 mmol/L (3.5-5.1) 03/09/17 06:40 Chloride 97 mmol/L (98-107) L 03/09/17 06:40 Carbon Dioxide 30 mmol/L (21-32) D 03/09/17 06:40 Anion Gap 8 (8-16) 03/09/17 06:40 BUN 9 mg/dL (7-18) 03/09/17 06:40 Creatinine 0.8 mg/dL (0.7-1.3) 03/09/17 06:40 Creat Clearance w eGFR > 60 (>60) 03/09/17 06:40 Random Glucose 99 mg/dL (74-106) D 03/09/17 06:40 Calcium 8.6 mg/dL (8.5-10.1) 03/09/17 06:40 M Total Bilirubin 0.6 mg/dL (0.2-1.0) D 03/09/17 06:40 AST 27 U/L (15-37) 03/09/17 06:40 ALT 28 U/L (12-78) 03/09/17 06:40 Alkaline Phosphatase 75 U/L (45-117) 03/09/17 06:40 Total Protein 5.9 g/dl (6.4-8.2) L 03/09/17 06:40 Albumin 2.6 g/dl (3.4-5.0) L 03/09/17 06:40 Lipase 2235 U/L (73-393) H 03/09/17 06:40 lipase double yesterday, wbc stable - ....Imaging Chest X-ray: Report Reviewed Problem List - Problems (1) Alcohol-induced acute pancreatitis Assessment/Plan: alcoholic pancreatitis with small area of necrosis, not likely infected, no drainable collection keep NPO/IVF with aggressive hydration, until pain/tenderness completely resolve recommend adding D5 to fluids (D5 1/2NS + 20 KCl in one IV, crystalloid for volume in another) trend labs replete lytes prn pain control prn GI/DVT prophylaxis CXR noted, likely atelectasis with sympathetic effusion, possible pneumonia - pt encouraged to use IS regularly, be OOB/ambulating/sitting GI on board detox consultation noted no acute surgical issues at this time will follow peripherally, please call with any questions Code(s): K85.20 - ALCOHOL INDUCED ACUTE PANCREATITIS WITHOUT NECROSIS OR INFCT Qualifiers: Acute pancreatitis complication: uninfected necrosis Qualified Code(s): K85.21 - Alcohol induced acute pancreatitis with uninfected necrosis (2) Alcohol dependence, continuous drinking behavior Code(s): F10.20 - ALCOHOL DEPENDENCE, UNCOMPLICATED (3) Drug abuse, marijuana Code(s): F12.10 - CANNABIS ABUSE, UNCOMPLICATED (4) Percocet use disorder, mild, abuse Code(s): F11.10 - OPIOID ABUSE, UNCOMPLICATED
[2017-03-09] MEDS: FAMOTIDINE IV 20 MG/12 ML VIAL IVPUSH SCH ×2 (11:52→21:24)
--- NOTE | 2017-03-09 15:06 | PN ---
GI Progress Note Subjective: GI NOte ( covering Dr Thompson) : Despite CT suggesting pancreatic necrosis, rising lipase and persistent leucocytosis Tesfaye has only minimal pain and wants to eat. He had a formed BM earlier. I have strongly advised him to absolutely refrain from alcohol usage. - Objective Vital Signs: Vital Signs Temperature 99.8 F H 03/09/17 14:22 Pulse Rate 117 H 03/09/17 14:22 Respiratory Rate 20 03/09/17 14:22 Blood Pressure 134/90 03/09/17 14:22 O2 Sat by Pulse Oximetry (%) 96 03/08/17 21:00 Laboratory Tests 03/05/17 03/05/17 03/06/17 06:20 06:20 08:30 WBC 16.3 H 17.2 H Hgb Total Bilirubin AST ALT Alkaline Phosphatase Albumin Lipase 4578 H 03/06/17 03/07/17 03/08/17 08:30 08:40 07:35 WBC 17.0 H Hgb Total Bilirubin AST ALT Alkaline Phosphatase Albumin Lipase 446 H 510 H 03/08/17 03/09/17 03/09/17 07:35 06:40 06:40 WBC Hgb 11.7 Total Bilirubin 0.6 D AST 27 ALT 28 Alkaline Phosphatase 75 Albumin 2.6 L Lipase 1233 H 2235 H Constitutional: No Distress ...Auscultate: Yes: Normoactive Bowel Sounds ...Palpate: Yes: Soft, Other (nontender) Labs: CBC, BMP 03/09/17 06:40 03/09/17 06:40 Problem List - Problems (1) Pancreatic necrosis Code(s): K86.89 - OTHER SPECIFIED DISEASES OF PANCREAS (2) Alcohol-induced acute pancreatitis Assessment/Plan: Alcoholic pancreatitis with necrosis. Need to observe closely for abscess formation. Current opinion is to feed earlier as tolerated. Will try clear liquids. No signs of alcohol withdrawal. Code(s): K85.20 - ALCOHOL INDUCED ACUTE PANCREATITIS WITHOUT NECROSIS OR INFCT Qualifiers: Acute pancreatitis complication: uninfected necrosis Qualified Code(s): K85.21 - Alcohol induced acute pancreatitis with uninfected necrosis
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
--- NOTE | 2017-03-09 15:37 | PN ---
Progress Note (short form) - Note Progress Note: feels better less abdominal pain walking today cxray last pm ?small right infiltrate- almost resolved on todays cxray- ? atelectasis Vital Signs Period Temp Pulse Resp BP Sys/Goel Pulse Ox Last 24 Hr 98.6 F-100.1 F 76-117 18-22 134-150/80-99 96-96 cor-rrr lungs clear today abd soft, +bs not tender (recent pain meds) no distention ext no edema CBC, BMP 03/09/17 06:40 03/09/17 06:40 Microbiology 03/08/17 15:30 Blood - Peripheral Venous Blood Culture - Preliminary NO GROWTH OBTAINED AFTER 24 HOURS, INCUBATION TO CONTINUE FOR 4 DAYS. 03/08/17 15:30 Blood - Peripheral Venous Blood Culture - Preliminary NO GROWTH OBTAINED AFTER 24 HOURS, INCUBATION TO CONTINUE FOR 4 DAYS. a/p given rapid improvement of cxray-most c/w atelectasis/fluid will f/u cultures with plans to d/c antibiotics if cultures negative in am acute pancreatitis- management per GI Problem List - Problems (1) Acute pancreatitis Code(s): K85.90 - ACUTE PANCREATITIS WITHOUT NECROSIS OR INFECTION, UNSP Qualifiers: Pancreatitis type: alcohol induced Acute pancreatitis complication: unspecified Qualified Code(s): K85.20 - Alcohol induced acute pancreatitis without necrosis or infection (2) Fever Code(s): R50.9 - FEVER, UNSPECIFIED
[2017-03-09] MEDS: HYDROmorphone HCL CARPU-JECT 2 MG/1 ML DISP.SYRIN IVPB PRN (23:01)
[2017-03-10] MEDS: LORazepam 2 MG/ML SDV VIAL IVPUSH SCH ×5 (00:49→21:39)
[2017-03-10] MEDS: LACTATED RINGERS SOLUTION 1,000 ML/1,000 ML INFUS.BAG IV SCH ×5 (01:45→20:31)
[2017-03-10] MEDS: PIPERACILLIN/TAZOB 4.5 GM 4.5 GM in DEXTROSE 5%-WATER - 100 ML IVPB SCH ×3 (01:45→17:31)
[2017-03-10] MEDS: HYDROmorphone HCL CARPU-JECT 2 MG/1 ML DISP.SYRIN IVPB PRN ×5 (03:09→22:30)
[2017-03-10 08:52] LABS: ALBUMIN 2.7 g/dl (3.4-5.0); AMYLASE 221 U/L (25-115); ANION GAP 10 (8-16); BASOPHIL 0.3 % (0-2.0); CALCIUM 8.8 mg/dL (8.5-10.1); CO2 28 mmol/L (21-32); EOSINOPHIL 0.5 % (0-4.5); GLUCOSE,RANDOM 98 mg/dL (74-106); MCHC 34.1 g/dl (32.0-35.9); MEAN CELL VOLUME 88.2 fl (80-96); MEAN PLT VOLUME 6.8 fl (7.5-11.1); NEUTROPHILS 74.6 % (42.8-82.8); PLATELET COUNT 342 K/MM3 (134-434); RDW 13.5 % (11.9-15.9); SGOT/AST 25 U/L (15-37); SGPT/ALT 33 U/L (12-78); WHITE BLOOD COUNT 19.1 K/mm3 (4.0-10.0)
[2017-03-10 08:53] LABS: ALK PHOS 82 U/L (45-117); BILIRUBIN,TOTAL 0.6 mg/dL (0.2-1.0); TOT PROT 6.5 g/dl (6.4-8.2)
[2017-03-10] MEDS ORDERED: PT OWN MED DRAWER 7, Y5N ONE ×2 (09:09→16:42)
[2017-03-10] MEDS: FAMOTIDINE IV 20 MG/12 ML VIAL IVPUSH SCH ×2 (09:24→21:38)
--- NOTE | 2017-03-10 11:30 | PN ---
Progress Note, Physician History of Present Illness: abd pain better - Current Medication List Current Medications: Active Medications Hydromorphone HCl (Dilaudid Injection -) 1 mg IVPB Q4H PRN PRN Reason: PAIN Last Admin: 03/10/17 06:53 Dose: 1 mg Famotidine (Pepcid 20 Mg/12 Ml Push) 20 mg in 12 mls @ 144 mls/hr IVPUSH BID [facility] Last Admin: 03/10/17 09:24 Dose: 144 mls/hr Piperacillin Sod/Tazobactam (Sod 4.5 gm/ Dextrose) 100 mls @ 200 mls/hr IVPB Q8H-IV [facility] Last Admin: 03/10/17 09:23 Dose: 200 mls/hr Lactated Ringer's (Lactated Ringers Solution) 1,000 ml in 1,000 mls @ 250 mls/ hr IV [facility] Last Admin: 03/10/17 09:24 Dose: Not Given Lorazepam (Ativan Injection -) 1 mg IVPUSH Q6H [facility] Last Admin: 03/10/17 06:37 Dose: Not Given Lorazepam (Ativan Injection -) 1 mg IVPUSH Q6H PRN PRN Reason: WITHDRAWAL(CONT SUBST) Lorazepam (Ativan Injection -) 2 mg IVPUSH HS [facility] Last Admin: 03/09/17 21:23 Dose: 2 mg Ondansetron HCl (Zofran Injection) 4 mg IVPUSH Q6H PRN PRN Reason: NAUSEA AND/OR VOMITING Last Admin: 03/04/17 09:50 Dose: 4 mg Ondansetron HCl (Zofran Odt -) 8 mg SL Q6H PRN PRN Reason: NAUSEA AND/OR VOMITING Last Admin: 03/07/17 11:23 Dose: 8 mg - Objective Vital Signs: Vital Signs Temperature 100.0 F H 03/10/17 09:22 Pulse Rate 98 H 03/10/17 09:22 Respiratory Rate 18 03/10/17 09:22 Blood Pressure 140/95 03/10/17 09:22 O2 Sat by Pulse Oximetry (%) 95 03/09/17 21:00 Cardiovascular: Yes: Regular Rate and Rhythm Respiratory: Yes: Regular, CTA Bilaterally Gastrointestinal: Yes: Normal Bowel Sounds, Soft, Tenderness (MINIMAL) Labs: CBC, BMP 03/10/17 07:30 03/10/17 07:30 Problem List - Problems (1) Pneumonia Assessment/Plan: MOST LIKELY REACTIVE/ATELECTASIS NPO IVF IV ABX FOLLOW UP LABS Code(s): J18.9 - PNEUMONIA, UNSPECIFIED ORGANISM (2) Acute pancreatitis Assessment/Plan: NPO GI AND SURGERY ON CASE IVF MONITOR LABS REPEAT CT Code(s): K85.90 - ACUTE PANCREATITIS WITHOUT NECROSIS OR INFECTION, UNSP Qualifiers: Pancreatitis type: alcohol induced Acute pancreatitis complication: unspecified Qualified Code(s): K85.20 - Alcohol induced acute pancreatitis without necrosis or infection (3) Fever Assessment/Plan: F/U CT SCAN CULTURES IV ABX Code(s): R50.9 - FEVER, UNSPECIFIED
--- NOTE | 2017-03-10 11:40 | PN ---
Progress Note (short form) - Note Progress Note: feels better less abdominal pain walking today drinking clears denies chills or rigors looks well Vital Signs Period Temp Pulse Resp BP Sys/Goel Pulse Ox Last 24 Hr 99.4 F-101.1 F 82-117 18-20 134-144/84-99 95 cor-rrr lungs clear abd soft,nt no rebound or guarding no cvat ext no edema (last got pain meds at 7 am) CBC, BMP 03/10/17 07:30 03/10/17 07:30 Microbiology 03/08/17 15:30 Blood - Peripheral Venous Blood Culture - Preliminary NO GROWTH OBTAINED AFTER 24 HOURS, INCUBATION TO CONTINUE FOR 4 DAYS. 03/08/17 15:30 Blood - Peripheral Venous Blood Culture - Preliminary NO GROWTH OBTAINED AFTER 24 HOURS, INCUBATION TO CONTINUE FOR 4 DAYS. a/p given rapid improvement of cxray-most c/w atelectasis/fluid will f/u cultures with plans to d/c antibiotics if cultures negative in am acute pancreatitis- management per GI d/w Dr Maradiaga- for repeat ct scan today- Problem List - Problems (1) Acute pancreatitis Code(s): K85.90 - ACUTE PANCREATITIS WITHOUT NECROSIS OR INFECTION, UNSP Qualifiers: Pancreatitis type: alcohol induced Acute pancreatitis complication: unspecified Qualified Code(s): K85.20 - Alcohol induced acute pancreatitis without necrosis or infection (2) Fever Code(s): R50.9 - FEVER, UNSPECIFIED
--- NOTE | 2017-03-10 17:32 | PN ---
GI Progress Note Subjective: GI NOte ( covering Dr Thompson) : Had fever to 101 but denies any pain even after starting clear liquids. Repeat CT reviewed and reveals pancreatitis. I cannot see an abscess but await radiology reading. - Objective Vital Signs: Vital Signs Temperature 98.0 F 03/10/17 14:49 Pulse Rate 76 03/10/17 14:49 Respiratory Rate 20 03/10/17 14:49 Blood Pressure 123/77 03/10/17 14:49 O2 Sat by Pulse Oximetry (%) 95 03/10/17 09:00 Laboratory Tests 03/10/17 03/10/17 07:30 07:30 Total Bilirubin 0.6 C-Reactive Protein 17.6 H Total Amylase 221 H D Lipase 2842 H Constitutional: No Distress ...Auscultate: Yes: Normoactive Bowel Sounds ...Palpate: Yes: Soft, Other (nontender) Labs: CBC, BMP 03/10/17 07:30 03/10/17 07:30 Problem List - Problems (1) Pancreatic necrosis Code(s): K86.89 - OTHER SPECIFIED DISEASES OF PANCREAS (2) Alcohol-induced acute pancreatitis Assessment/Plan: Rising lipase and fevers are of concern so would continue antibiotics to observe further and until CT is read. Dr Thompson will return tomorrow. Code(s): K85.20 - ALCOHOL INDUCED ACUTE PANCREATITIS WITHOUT NECROSIS OR INFCT Qualifiers: Acute pancreatitis complication: uninfected necrosis Qualified Code(s): K85.21 - Alcohol induced acute pancreatitis with uninfected necrosis
[2017-03-11] MEDS: LORazepam 2 MG/ML SDV VIAL IVPUSH SCH ×3 (02:10→12:06)
[2017-03-11] MEDS: LACTATED RINGERS SOLUTION 1,000 ML/1,000 ML INFUS.BAG IV SCH ×3 (02:11→11:46)
[2017-03-11] MEDS: PIPERACILLIN/TAZOB 4.5 GM 4.5 GM in DEXTROSE 5%-WATER - 100 ML IVPB SCH ×2 (02:12→09:41)
[2017-03-11] MEDS: HYDROmorphone HCL CARPU-JECT 2 MG/1 ML DISP.SYRIN IVPB PRN ×6 (02:24→21:59)
[2017-03-11 06:59] LABS: BASOPHIL 0.4 % (0-2.0); EOSINOPHIL 0.5 % (0-4.5); MCHC 34.4 g/dl (32.0-35.9); MEAN CELL VOLUME 87.4 fl (80-96); MEAN PLT VOLUME 6.7 fl (7.5-11.1); NEUTROPHILS 75.5 % (42.8-82.8); PLATELET COUNT 367 K/MM3 (134-434); RDW 13.9 % (11.9-15.9); WHITE BLOOD COUNT 17.8 K/mm3 (4.0-10.0)
[2017-03-11 08:18] LABS: CALCIUM 8.5 mg/dL (8.5-10.1)
[2017-03-11 08:25] LABS: AMYLASE 235 U/L (25-115)
[2017-03-11 08:25] LABS: ALBUMIN 2.6 g/dl (3.4-5.0); ALK PHOS 78 U/L (45-117); ANION GAP 10 (8-16); BILIRUBIN,TOTAL 0.4 mg/dL (0.2-1.0); CO2 27 mmol/L (21-32); CREATININE 0.9 mg/dL (0.7-1.3); GLUCOSE,RANDOM 111 mg/dL (74-106); SGOT/AST 36 U/L (15-37); SGPT/ALT 45 U/L (12-78); TOT PROT 6.3 g/dl (6.4-8.2)
[2017-03-11] MEDS ORDERED: PT OWN MED DRAWER 7, Y5N ONE ×2 (09:31→13:16)
[2017-03-11] MEDS: FAMOTIDINE IV 20 MG/12 ML VIAL IVPUSH SCH (09:41)
--- NOTE | 2017-03-11 11:34 | PN ---
Progress Note, Physician History of Present Illness: Chart reviewed. today's CT results noted c/o generalized abdominal pain overnight. Tolerating current diet tmax 100.4 - Current Medication List Current Medications: Active Medications Hydromorphone HCl (Dilaudid Injection -) 1 mg IVPB Q4H PRN PRN Reason: PAIN Last Admin: 03/11/17 10:37 Dose: 1 mg Famotidine (Pepcid 20 Mg/12 Ml Push) 20 mg in 12 mls @ 144 mls/hr IVPUSH BID [facility] Last Admin: 03/11/17 09:41 Dose: 144 mls/hr Piperacillin Sod/Tazobactam (Sod 4.5 gm/ Dextrose) 100 mls @ 200 mls/hr IVPB Q8H-IV [facility] Last Admin: 03/11/17 09:41 Dose: 200 mls/hr Lactated Ringer's (Lactated Ringers Solution) 1,000 ml in 1,000 mls @ 250 mls/ hr IV ASDIR [facility] Last Admin: 03/11/17 05:45 Dose: 250 mls/hr Lorazepam (Ativan Injection -) 1 mg IVPUSH Q6H [facility] Last Admin: 03/11/17 06:06 Dose: Not Given Lorazepam (Ativan Injection -) 1 mg IVPUSH Q6H PRN PRN Reason: WITHDRAWAL(CONT SUBST) Lorazepam (Ativan Injection -) 2 mg IVPUSH HS [facility] Last Admin: 03/10/17 21:39 Dose: 2 mg Ondansetron HCl (Zofran Injection) 4 mg IVPUSH Q6H PRN PRN Reason: NAUSEA AND/OR VOMITING Last Admin: 03/04/17 09:50 Dose: 4 mg Ondansetron HCl (Zofran Odt -) 8 mg SL Q6H PRN PRN Reason: NAUSEA AND/OR VOMITING Last Admin: 03/07/17 11:23 Dose: 8 mg - Objective Vital Signs: Vital Signs Temperature 99.4 F 03/11/17 09:00 Pulse Rate 82 03/11/17 09:00 Respiratory Rate 18 03/11/17 09:00 Blood Pressure 141/85 03/11/17 09:00 O2 Sat by Pulse Oximetry (%) 98 03/11/17 09:00 Constitutional: Yes: No Distress Eyes: Yes: Conjunctiva Clear HENT: Yes: Atraumatic Neck: Yes: Supple Cardiovascular: Yes: Regular Rate and Rhythm Respiratory: Yes: Regular Gastrointestinal: Yes: Tenderness, Tenderness, Epigastrium. No: Distention, Melena, Tenderness, Rebound, Vomiting Neurological: Yes: Alert, Oriented Labs: CBC, BMP 03/11/17 06:45 03/11/17 06:00 Laboratory Results - last 24 hr 03/11/17 03/11/17 03/11/17 06:00 06:45 06:45 WBC 17.8 H RBC 3.98 L Hgb 12.0 Hct 34.8 L MCV 87.4 MCH 30.0 MCHC 34.4 RDW 13.9 Plt Count 367 MPV 6.7 L Neutrophils % 75.5 Lymphocytes % 12.5 Monocytes % 11.1 H Eosinophils % 0.5 Basophils % 0.4 Sodium 136 Potassium 3.3 L Chloride 99 Carbon Dioxide 27 Anion Gap 10 BUN 5 L Creatinine 0.9 Creat Clearance w eGFR > 60 Random Glucose 111 H Calcium 8.5 Total Bilirubin 0.4 D AST 36 D ALT 45 D Alkaline Phosphatase 78 Total Protein 6.3 L Albumin 2.6 L Total Amylase 235 H Lipase 3232 H - ....Imaging Cat Scan: Report Reviewed (necrosis, inflammatory chages) Problem List - Problems (1) Acute pancreatitis Code(s): K85.90 - ACUTE PANCREATITIS WITHOUT NECROSIS OR INFECTION, UNSP Qualifiers: Pancreatitis type: alcohol induced Acute pancreatitis complication: unspecified Qualified Code(s): K85.20 - Alcohol induced acute pancreatitis without necrosis or infection (2) Alcohol dependence with uncomplicated withdrawal Code(s): F10.230 - ALCOHOL DEPENDENCE WITH WITHDRAWAL, UNCOMPLICATED Assessment/Plan pancreatitis with necrosis, no other organ systems involved. ?infection vs inflammation alone Please keep IVF @ 350 cc/hr. Pain management and antiemetics, increase pain medication dose to 2 mg q4 prn Ambien PRN Current diet CBC, CMP daily ID follow up abx with pancreatic coverage Imipenem?
[2017-03-11] MEDS ORDERED: ZOLPIDEM TARTRATE 5 MG TABLET PO PRN ×2 (11:41→12:30)
--- NOTE | 2017-03-11 12:18 | PN ---
Progress Note, Physician Chief Complaint: epigastric pain History of Present Illness: No overnight events. Seen and examined in bed. No nausea or vomiting. Tolerating clears. Pain is minimal, somewhat more in left upper abdomen. No increase or change in pain with liquids. Last pain med about 10:30 am. Had temp yest just over 101; CT repeated showing small area of anterior pancreatic necrosis and early rim-enhancing collection between pancreatic tail/body and stomach with peripancreatic fat necrosis and significant secondary inflammatory changes of surrounding structures. Small pleural effusions persist. On Zosyn per ID. Tmax 100.4 today. - Current Medication List Current Medications: Active Medications Hydromorphone HCl (Dilaudid Injection -) 2 mg IVPB Q4H PRN PRN Reason: PAIN Famotidine (Pepcid 20 Mg/12 Ml Push) 20 mg in 12 mls @ 144 mls/hr IVPUSH BID [facility] Last Admin: 03/11/17 09:41 Dose: 144 mls/hr Piperacillin Sod/Tazobactam (Sod 4.5 gm/ Dextrose) 100 mls @ 200 mls/hr IVPB Q8H-IV [facility] Last Admin: 03/11/17 09:41 Dose: 200 mls/hr Lactated Ringer's (Lactated Ringers Solution) 1,000 ml in 1,000 mls @ 250 mls/ hr IV ASDIR [facility] Last Admin: 03/11/17 11:46 Dose: 250 mls/hr Lorazepam (Ativan Injection -) 1 mg IVPUSH Q6H [facility] Last Admin: 03/11/17 12:06 Dose: Not Given Lorazepam (Ativan Injection -) 1 mg IVPUSH Q6H PRN PRN Reason: WITHDRAWAL(CONT SUBST) Lorazepam (Ativan Injection -) [address] [facility] Last Admin: 03/10/17 21:39 Dose: 2 mg Ondansetron HCl (Zofran Injection) 4 mg IVPUSH Q6H PRN PRN Reason: NAUSEA AND/OR VOMITING Last Admin: 03/04/17 09:50 Dose: 4 mg Ondansetron HCl (Zofran Odt -) 8 mg SL Q6H PRN PRN Reason: NAUSEA AND/OR VOMITING Last Admin: 03/07/17 11:23 Dose: 8 mg Zolpidem Tartrate (Ambien -) 5 mg PO HS PRN PRN Reason: INSOMNIA - Objective Vital Signs: Vital Signs Temperature 99.4 F 03/11/17 09:00 Pulse Rate 82 03/11/17 09:00 Respiratory Rate 18 03/11/17 09:00 Blood Pressure 141/85 03/11/17 09:00 O2 Sat by Pulse Oximetry (%) 98 03/11/17 09:00 Constitutional: Yes: Well Nourished, No Distress, Calm, Pallor Eyes: Yes: Conjunctiva Clear, EOM Intact. No: Sclera Icterus HENT: Yes: Atraumatic, Normocephalic Gastrointestinal: Yes: Normal Bowel Sounds, Soft, Distention (minimal), Tenderness (mild at left lateral upper abdomen only, mid-axillary). No: Tenderness, Epigastrium, Tenderness, Rebound Genitourinary: No: CVA Tenderness - Left, CVA Tenderness - Right Extremities: No: Cool, Cyanosis Integumentary: No: Jaundice, Rash Neurological: Yes: Alert, Oriented Labs: CBC, BMP 03/11/17 06:45 03/11/17 06:00 CMP Sodium 136 mmol/L (136-145) 03/11/17 06:00 Potassium 3.3 mmol/L (3.5-5.1) L 03/11/17 06:00 Chloride 99 mmol/L (98-107) 03/11/17 06:00 Carbon Dioxide 27 mmol/L (21-32) 03/11/17 06:00 Anion Gap 10 (8-16) 03/11/17 06:00 BUN 5 mg/dL (7-18) L 03/11/17 06:00 Creatinine 0.9 mg/dL (0.7-1.3) 03/11/17 06:00 Creat Clearance w eGFR > 60 (>60) 03/11/17 06:00 Random Glucose 111 mg/dL (74-106) H 03/11/17 06:00 Calcium 8.5 mg/dL (8.5-10.1) 03/11/17 06:00 Total Bilirubin 0.4 mg/dL (0.2-1.0) D 03/11/17 06:00 AST 36 U/L (15-37) D 03/11/17 06:00 ALT 45 U/L (12-78) D 03/11/17 06:00 Alkaline Phosphatase 78 U/L (45-117) 03/11/17 06:00 Total Protein 6.3 g/dl (6.4-8.2) L 03/11/17 06:00 Albumin 2.6 g/dl (3.4-5.0) L 03/11/17 06:00 Total Amylase 235 U/L (25-115) H 03/11/17 06:45 Lipase 3232 U/L (73-393) H 03/11/17 06:45 lipase rising K+ low LFTs remain normal - ....Imaging Cat Scan: Report Reviewed, Image Reviewed Problem List - Problems (1) Alcohol-induced acute pancreatitis Assessment/Plan: alcoholic pancreatitis with small area of pancreatic necrosis and early/ organizing separate collection, but with significant secondary inflammation and peripancreatic fluid/fat necrosis tolerating clears without increased pain or tenderness - clinical exam improved recommend adding D5 to fluids (D5 1/2NS + 20 KCl in one IV, crystalloid for volume in another) consider changing abx to imipenem trend labs replete lytes pain control prn GI/DVT prophylaxis GI and ID on board detox following no acute surgical issues at this time will follow peripherally, please call with any questions Code(s): K85.20 - ALCOHOL INDUCED ACUTE PANCREATITIS WITHOUT NECROSIS OR INFCT Qualifiers: Acute pancreatitis complication: uninfected necrosis Qualified Code(s): K85.21 - Alcohol induced acute pancreatitis with uninfected necrosis (2) Alcohol dependence, continuous drinking behavior Code(s): F10.20 - ALCOHOL DEPENDENCE, UNCOMPLICATED (3) Drug abuse, marijuana Code(s): F12.10 - CANNABIS ABUSE, UNCOMPLICATED (4) Percocet use disorder, mild, abuse Code(s): F11.10 - OPIOID ABUSE, UNCOMPLICATED
[2017-03-11] MEDS ORDERED: diazePAM 5 MG TABLET PO ONE (12:31)
[2017-03-11] MEDS ORDERED: diazePAM 5 MG TABLET PO PRN (12:31)
--- NOTE | 2017-03-11 12:36 | PN ---
[facility] Progress Note (SOAP) Subjective: started on clear fluids, still has pain, tolerating food can switch to po mediations Objective: 03/11/17 12:35 Vital Signs - 8 hr 03/11/17 03/11/17 06:00 09:00 Temperature 100.4 F H 99.4 F Pulse Rate 90 82 Respiratory 20 18 Rate Blood Pressure 137/82 141/85 O2 Sat by Pulse 98 Oximetry (%) Laboratory Results - last 24 hr 03/11/17 03/11/17 03/11/17 06:00 06:45 06:45 WBC 17.8 H RBC 3.98 L Hgb 12.0 Hct 34.8 L MCV 87.4 MCH 30.0 MCHC 34.4 RDW 13.9 Plt Count 367 MPV 6.7 L Neutrophils % 75.5 Lymphocytes % 12.5 Monocytes % 11.1 H Eosinophils % 0.5 Basophils % 0.4 Sodium 136 Potassium 3.3 L Chloride 99 Carbon Dioxide 27 Anion Gap 10 BUN 5 L Creatinine 0.9 Creat Clearance w eGFR > 60 Random Glucose 111 H Calcium 8.5 Total Bilirubin 0.4 D AST 36 D ALT 45 D Alkaline Phosphatase 78 Total Protein 6.3 L Albumin 2.6 L Total Amylase 235 H Lipase 3232 H elevated wbc, low alb, hypokalemia, elvated amylase and liapase Assessment: 03/11/17 12:35 alcohol use disorder with withdrawal, pancreatitis slowly resolving, switch to po detox regimen with valium. ronaldien prn for sleep at night as requested by patient luzma s/l, penatal vitmins and thimaine for malnutirtion.
--- NOTE | 2017-03-11 12:43 | PN ---
Progress Note (short form) - Note Progress Note: abdominal pain unchanged, responds to pain meds tolerating clears Vital Signs Period Temp Pulse Resp BP Sys/Goel Pulse Ox Last 24 Hr 98.0 F-100.4 F 76-90 18-20 111-141/59-85 96-98 cor-rrr lungs clear abd soft,nt (got pain meds earlier) ext no edema CBC, BMP 03/11/17 06:45 03/11/17 06:00 Microbiology 03/08/17 15:30 Blood - Peripheral Venous Blood Culture - Preliminary NO GROWTH OBTAINED AFTER 48 HOURS, INCUBATION TO CONTINUE FOR 3 DAYS. 03/08/17 15:30 Blood - Peripheral Venous Blood Culture - Preliminary NO GROWTH OBTAINED AFTER 48 HOURS, INCUBATION TO CONTINUE FOR 3 DAYS. 03/08/17 15:00 Urine - Urine Clean Catch Urine Culture - Final NO GROWTH OBTAINED ct scan results noted a/p pancreatitis d/w GI and surgery- given continued leukocytosis and lack of improvement and worsening necrosis on ct scan will start imipenem no pneumonia Problem List - Problems (1) Acute pancreatitis Code(s): K85.90 - ACUTE PANCREATITIS WITHOUT NECROSIS OR INFECTION, UNSP Qualifiers: Pancreatitis type: alcohol induced Acute pancreatitis complication: unspecified Qualified Code(s): K85.20 - Alcohol induced acute pancreatitis without necrosis or infection (2) Fever Code(s): R50.9 - FEVER, UNSPECIFIED
[2017-03-11] MEDS: diazePAM 5 MG TABLET PO SCH ×2 (13:31→21:59)
[2017-03-11] MEDS: PRENATAL VITAMINS W/ FOLIC ACID TABLET (FP) PO SCH (13:34)
[2017-03-11] MEDS: IMIPENEM/CILASTATIN SODIUM 500 MG in SODIUM CHLORIDE 100 ML IVPB SCH ×2 (14:33→21:58)
[2017-03-11] MEDS: DEXTROSE 5%-NORMAL SALINE 1,000 ML IV SCH (14:50)
--- NOTE | 2017-03-11 15:54 | PN ---
Progress Note, Physician Chief Complaint: EVENTS AND NOTES REVIEWED PATIENT AWAKE ALERT MILD DISTRESS FAMILY BEDSIDE - Current Medication List Current Medications: Active Medications Diazepam (Valium -) 5 mg PO TID [facility] Stop: 03/12/17 22:01 Last Admin: 03/11/17 13:31 Dose: 5 mg Diazepam (Valium -) 5 mg PO BID [facility] Stop: 03/14/17 22:01 Diazepam (Valium -) 5 mg PO DAILY [facility] Stop: 03/15/17 10:01 Diazepam (Valium -) 10 mg PO Q4H PRN PRN Reason: WITHDRAWAL(CONT SUBST) Stop: 03/14/17 12:30 Hydromorphone HCl (Dilaudid Injection -) 2 mg IVPB Q4H PRN PRN Reason: PAIN Last Admin: 03/11/17 14:33 Dose: 2 mg Imipenem/Cilastatin Sodium 500 (mg/ Sodium Chloride) 100 mls @ 200 mls/hr IVPB Q6H-IV [facility] PRN Reason: Protocol Last Admin: 03/11/17 14:33 Dose: 200 mls/hr Dextrose/Sodium Chloride (D5-Ns -) 1,000 mls @ 100 mls/hr IV ASDIR [facility] Last Admin: 03/11/17 14:50 Dose: 100 mls/hr Ondansetron HCl (Zofran Odt -) 8 mg SL Q6H PRN PRN Reason: NAUSEA AND/OR VOMITING Last Admin: 03/07/17 11:23 Dose: 8 mg Multivit/Folic Acid/Iron ( Vitamins (Sjr) -) 1 tab PO DAILY [facility] Last Admin: 03/11/17 13:34 Dose: 1 tab Ranitidine HCl (Zantac -) 150 mg PO BID [facility] Thiamine HCl (Vitamin B1 -) 100 mg PO HS [facility] Zolpidem Tartrate (Ambien -) 10 mg PO HS PRN PRN Reason: INSOMNIA Stop: 03/12/17 12:29 - Objective Vital Signs: Vital Signs Temperature 99.3 F 03/11/17 14:25 Pulse Rate 75 03/11/17 14:25 Respiratory Rate 18 03/11/17 14:25 Blood Pressure 147/91 03/11/17 14:25 O2 Sat by Pulse Oximetry (%) 98 03/11/17 09:00 Constitutional: Yes: Mild Distress Eyes: Yes: WNL HENT: Yes: WNL Neck: Yes: WNL Cardiovascular: Yes: WNL Respiratory: Yes: WNL Gastrointestinal: Yes: Tenderness Genitourinary: Yes: WNL Musculoskeletal: Yes: WNL Extremities: Yes: WNL Edema: No Peripheral Pulses WNL: Yes Integumentary: Yes: WNL Wound/Incision: Yes: Clean/Dry Neurological: Yes: WNL ...Motor Strength: WNL Psychiatric: Yes: WNL Labs: CBC, BMP 03/11/17 06:45 03/11/17 06:00 Problem List - Problems (1) Acute pancreatitis Code(s): K85.90 - ACUTE PANCREATITIS WITHOUT NECROSIS OR INFECTION, UNSP Qualifiers: Pancreatitis type: alcohol induced Acute pancreatitis complication: unspecified Qualified Code(s): K85.20 - Alcohol induced acute pancreatitis without necrosis or infection (2) Alcohol dependence, continuous drinking behavior Code(s): F10.20 - ALCOHOL DEPENDENCE, UNCOMPLICATED (3) Alcohol-induced acute pancreatitis Code(s): K85.20 - ALCOHOL INDUCED ACUTE PANCREATITIS WITHOUT NECROSIS OR INFCT Qualifiers: Acute pancreatitis complication: uninfected necrosis Qualified Code(s): K85.21 - Alcohol induced acute pancreatitis with uninfected necrosis (4) 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
[2017-03-11] MEDS ORDERED: FOLIC ACID INJECTION - 1 MG, THIAMINE HCL 100 MG, MULTIVIT INJECTION ADULT 10 ML in SOD... IVPB ONE (19:34)
[2017-03-11] MEDS: RANITIDINE HCL 150 MG TABLET (FP) PO SCH (21:58)
[2017-03-11] MEDS: THIAMINE HCL 100 MG TABLET (FP) PO SCH (21:58)
[2017-03-12] MEDS: HYDROmorphone HCL CARPU-JECT 2 MG/1 ML DISP.SYRIN IVPB PRN ×6 (02:13→22:31)
[2017-03-12] MEDS: IMIPENEM/CILASTATIN SODIUM 500 MG in SODIUM CHLORIDE 100 ML IVPB SCH ×4 (02:24→22:00)
[2017-03-12] MEDS: diazePAM 5 MG TABLET PO SCH ×3 (07:04→22:31)
[2017-03-12] MEDS ORDERED: PT OWN MED DRAWER 7, Y5N ONE ×4 (08:04→21:37)
[2017-03-12] MEDS: AMINO ACIDS/PROTEIN HYDROLYS 30 ML LIQUID.PKT PO SCH ×2 (08:11→17:18)
[2017-03-12] MEDS: RANITIDINE HCL 150 MG TABLET (FP) PO SCH ×2 (10:37→22:31)
[2017-03-12] MEDS: PRENATAL VITAMINS W/ FOLIC ACID TABLET (FP) PO SCH (10:37)
[2017-03-12] MEDS: DEXTROSE 5%-NORMAL SALINE 1,000 ML IV SCH ×2 (10:38→14:51)
[2017-03-12 13:01] LABS: BASOPHIL 0.4 % (0-2.0); EOSINOPHIL 0.9 % (0-4.5); MCH 29.7 pg (25.7-33.7); MCHC 33.3 g/dl (32.0-35.9); MEAN CELL VOLUME 89.2 fl (80-96); MEAN PLT VOLUME 6.8 fl (7.5-11.1); NEUTROPHILS 80.9 % (42.8-82.8); PLATELET COUNT 454 K/MM3 (134-434); RDW 13.9 % (11.9-15.9); WHITE BLOOD COUNT 17.3 K/mm3 (4.0-10.0)
[2017-03-12 13:30] LABS: ALBUMIN 2.9 g/dl (3.4-5.0); ANION GAP 10 (8-16); BILIRUBIN,DIRECT 0.2 mg/dL (0.0-0.2); BILIRUBIN,TOTAL 0.4 mg/dL (0.2-1.0); CO2 28 mmol/L (21-32); CREATININE 0.9 mg/dL (0.7-1.3); GLUCOSE,RANDOM 105 mg/dL (74-106); SGOT/AST 42 U/L (15-37); SGPT/ALT 60 U/L (12-78); TOT PROT 7.1 g/dl (6.4-8.2)
[2017-03-12 13:31] LABS: ALK PHOS 76 U/L (45-117)
--- NOTE | 2017-03-12 13:48 | PN ---
Progress Note (short form) - Note Progress Note: abdominal pain today, mainly in his back, unchanged Vital Signs Period Temp Pulse Resp BP Sys/Goel Pulse Ox Last 24 Hr 98.3 F-99.5 F 75-98 18-19 117-147/76-91 98 cor-rrr lungs clear abd soft,+bs, pain left flank ext no edema CBC, BMP 03/12/17 12:30 03/12/17 12:30 ct scan results noted a/p pancreatitis continue imipenem day #2 gi/surgery following Problem List - Problems (1) Acute pancreatitis Code(s): K85.90 - ACUTE PANCREATITIS WITHOUT NECROSIS OR INFECTION, UNSP Qualifiers: Pancreatitis type: alcohol induced Acute pancreatitis complication: unspecified Qualified Code(s): K85.20 - Alcohol induced acute pancreatitis without necrosis or infection (2) Fever Code(s): R50.9 - FEVER, UNSPECIFIED
--- NOTE | 2017-03-12 16:23 | PN ---
Progress Note, Physician History of Present Illness: Chart reviewed. generalized abdominal pain in am, otherwise appears to be clinically better Tolerating current diet - Current Medication List Current Medications: Active Medications Amino Acids (Prosource No Carb Liquid Pkt) 30 ml PO BID@0800,1730 [facility] Last Admin: 03/12/17 08:11 Dose: 30 ml Diazepam (Valium -) 5 mg PO TID [facility] Stop: 03/12/17 22:01 Last Admin: 03/12/17 14:47 Dose: Not Given Diazepam (Valium -) 5 mg PO BID [facility] Stop: 03/14/17 22:01 Diazepam (Valium -) 5 mg PO DAILY [facility] Stop: 03/15/17 10:01 Diazepam (Valium -) 10 mg PO Q4H PRN PRN Reason: WITHDRAWAL(CONT SUBST) Stop: 03/14/17 12:30 Hydromorphone HCl (Dilaudid Injection -) 2 mg IVPB Q4H PRN PRN Reason: PAIN Last Admin: 03/12/17 14:48 Dose: 2 mg Imipenem/Cilastatin Sodium 500 (mg/ Sodium Chloride) 100 mls @ 200 mls/hr IVPB Q6H-IV [facility] PRN Reason: Protocol Last Admin: 03/12/17 14:49 Dose: 200 mls/hr Dextrose/Sodium Chloride (D5-Ns -) 1,000 mls @ 100 mls/hr IV ASDIR [facility] Last Admin: 03/12/17 14:51 Dose: Not Given Ondansetron HCl (Zofran Odt -) 8 mg SL Q6H PRN PRN Reason: NAUSEA AND/OR VOMITING Last Admin: 03/07/17 11:23 Dose: 8 mg Multivit/Folic Acid/Iron ( Vitamins (Sjr) -) 1 tab PO DAILY [facility] Last Admin: 03/12/17 10:37 Dose: 1 tab Ranitidine HCl (Zantac -) 150 mg PO BID [facility] Last Admin: 03/12/17 10:37 Dose: 150 mg Thiamine HCl (Vitamin B1 -) 100 mg PO HS [facility] Last Admin: 03/11/17 21:58 Dose: 100 mg - Objective Vital Signs: Vital Signs Temperature 98.6 F 03/12/17 14:10 Pulse Rate 92 H 03/12/17 14:10 Respiratory Rate 20 03/12/17 14:10 Blood Pressure 134/84 03/12/17 14:10 O2 Sat by Pulse Oximetry (%) 98 03/11/17 21:00 Constitutional: Yes: Well Nourished, No Distress, Calm Eyes: Yes: Conjunctiva Clear HENT: Yes: Atraumatic Neck: Yes: Supple Cardiovascular: Yes: Regular Rate and Rhythm Respiratory: Yes: Regular Gastrointestinal: Yes: Soft, Tenderness, Tenderness, Epigastrium. No: Ascites, Distention, Melena, Vomiting Neurological: Yes: Alert, Oriented Labs: CBC, BMP 03/12/17 12:30 03/12/17 12:30 Laboratory Results - last 24 hr 03/12/17 03/12/17 12:30 12:30 WBC 17.3 H RBC 4.30 Hgb 12.8 Hct 38.3 MCV 89.2 MCH 29.7 MCHC 33.3 RDW 13.9 Plt Count 454 H D MPV 6.8 L Neutrophils % 80.9 Lymphocytes % 11.5 Monocytes % 6.3 Eosinophils % 0.9 Basophils % 0.4 Sodium 137 Potassium 4.1 D Chloride 99 Carbon Dioxide 28 Anion Gap 10 BUN 5 L Creatinine 0.9 Creat Clearance w eGFR > 60 Random Glucose 105 Calcium 9.0 Total Bilirubin 0.4 Direct Bilirubin 0.2 AST 42 H ALT 60 D Alkaline Phosphatase 76 Total Protein 7.1 Albumin 2.9 L Lipase 2540 H Problem List - Problems (1) Acute pancreatitis Code(s): K85.90 - ACUTE PANCREATITIS WITHOUT NECROSIS OR INFECTION, UNSP Qualifiers: Pancreatitis type: alcohol induced Acute pancreatitis complication: unspecified Qualified Code(s): K85.20 - Alcohol induced acute pancreatitis without necrosis or infection (2) Alcohol dependence with uncomplicated withdrawal Code(s): F10.230 - ALCOHOL DEPENDENCE WITH WITHDRAWAL, UNCOMPLICATED Assessment/Plan pancreatitis with necrosis, no other organ systems involved. ?infection vs inflammation alone Please keep IVF @ 350 cc/hr. Pain management and antiemetics, increase pain medication dose to 2 mg q4 prn Ambien PRN Current diet CBC, CMP daily abx with pancreatic coverage Imipenem
--- NOTE | 2017-03-12 19:24 | PN ---
Progress Note, Physician Chief Complaint: NOTES READ AND REVIEWED PATIENT ASLEEP, COMFORTABLE - Current Medication List Current Medications: Active Medications Amino Acids (Prosource No Carb Liquid Pkt) 30 ml PO BID@0800,1730 [facility] Last Admin: 03/12/17 17:18 Dose: 30 ml Diazepam (Valium -) 5 mg PO TID [facility] Stop: 03/12/17 22:01 Last Admin: 03/12/17 14:47 Dose: Not Given Diazepam (Valium -) 5 mg PO BID [facility] Stop: 03/14/17 22:01 Diazepam (Valium -) 5 mg PO DAILY [facility] Stop: 03/15/17 10:01 Diazepam (Valium -) 10 mg PO Q4H PRN PRN Reason: WITHDRAWAL(CONT SUBST) Stop: 03/14/17 12:30 Hydromorphone HCl (Dilaudid Injection -) 2 mg IVPB Q4H PRN PRN Reason: PAIN Last Admin: 03/12/17 18:41 Dose: 2 mg Imipenem/Cilastatin Sodium 500 (mg/ Sodium Chloride) 100 mls @ 200 mls/hr IVPB Q6H-IV [facility] PRN Reason: Protocol Last Admin: 03/12/17 14:49 Dose: 200 mls/hr Dextrose/Sodium Chloride (D5-Ns -) 1,000 mls @ 100 mls/hr IV ASDIR [facility] Last Admin: 03/12/17 14:51 Dose: Not Given Ondansetron HCl (Zofran Odt -) 8 mg SL Q6H PRN PRN Reason: NAUSEA AND/OR VOMITING Last Admin: 03/07/17 11:23 Dose: 8 mg Multivit/Folic Acid/Iron ( Vitamins (Sjr) -) 1 tab PO DAILY [facility] Last Admin: 03/12/17 10:37 Dose: 1 tab Ranitidine HCl (Zantac -) 150 mg PO BID [facility] Last Admin: 03/12/17 10:37 Dose: 150 mg Thiamine HCl (Vitamin B1 -) 100 mg PO HS [facility] Last Admin: 03/11/17 21:58 Dose: 100 mg - Objective Vital Signs: Vital Signs Temperature 98.7 F 03/12/17 18:00 Pulse Rate 100 H 03/12/17 18:00 Respiratory Rate 20 03/12/17 18:00 Blood Pressure 124/80 03/12/17 18:00 O2 Sat by Pulse Oximetry (%) 98 03/11/17 21:00 Constitutional: Yes: No Distress Eyes: Yes: WNL HENT: Yes: WNL Neck: Yes: WNL Cardiovascular: Yes: WNL Respiratory: Yes: WNL Gastrointestinal: Yes: WNL Genitourinary: Yes: WNL Musculoskeletal: Yes: WNL Extremities: Yes: WNL Edema: No Peripheral Pulses WNL: Yes Integumentary: Yes: WNL Wound/Incision: Yes: Clean/Dry Neurological: Yes: WNL ...Motor Strength: WNL Psychiatric: Yes: WNL Labs: CBC, BMP 03/12/17 12:30 03/12/17 12:30 Problem List - Problems (1) Acute pancreatitis Code(s): K85.90 - ACUTE PANCREATITIS WITHOUT NECROSIS OR INFECTION, UNSP Qualifiers: Pancreatitis type: alcohol induced Acute pancreatitis complication: unspecified Qualified Code(s): K85.20 - Alcohol induced acute pancreatitis without necrosis or infection (2) Alcohol dependence, continuous drinking behavior Code(s): F10.20 - ALCOHOL DEPENDENCE, UNCOMPLICATED (3) Alcohol-induced acute pancreatitis Code(s): K85.20 - ALCOHOL INDUCED ACUTE PANCREATITIS WITHOUT NECROSIS OR INFCT Qualifiers: Acute pancreatitis complication: uninfected necrosis Qualified Code(s): K85.21 - Alcohol induced acute pancreatitis with uninfected necrosis (4) 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
[2017-03-12] MEDS: THIAMINE HCL 100 MG TABLET (FP) PO SCH (22:31)
[2017-03-12] MEDS ORDERED: ZOLPIDEM TARTRATE 5 MG TABLET PO ONE (23:00)
[2017-03-13] MEDS ORDERED: PT OWN MED DRAWER 7, Y5N ONE ×4 (01:12→20:25)
[2017-03-13] MEDS: IMIPENEM/CILASTATIN SODIUM 500 MG in SODIUM CHLORIDE 100 ML IVPB SCH ×4 (02:40→22:00)
[2017-03-13] MEDS: HYDROmorphone HCL CARPU-JECT 2 MG/1 ML DISP.SYRIN IVPB PRN ×6 (02:58→23:08)
[2017-03-13] MEDS: RANITIDINE HCL 150 MG TABLET (FP) PO SCH ×2 (09:21→22:32)
[2017-03-13] MEDS: diazePAM 5 MG TABLET PO SCH ×2 (09:21→22:32)
[2017-03-13] MEDS: AMINO ACIDS/PROTEIN HYDROLYS 30 ML LIQUID.PKT PO SCH ×3 (09:21→22:31)
[2017-03-13] MEDS: PRENATAL VITAMINS W/ FOLIC ACID TABLET (FP) PO SCH (09:21)
[2017-03-13 09:53] LABS: MCH 30.3 pg (25.7-33.7); MCHC 34.2 g/dl (32.0-35.9); MEAN CELL VOLUME 88.6 fl (80-96); MEAN PLT VOLUME 6.8 fl (7.5-11.1); PLATELET COUNT 421 K/MM3 (134-434); RDW 13.7 % (11.9-15.9); WHITE BLOOD COUNT 14.9 K/mm3 (4.0-10.0)
[2017-03-13] MEDS: DEXTROSE 5%-NORMAL SALINE 1,000 ML IV SCH (10:15)
--- NOTE | 2017-03-13 11:32 | PN ---
Progress Note, Physician Chief Complaint: AWAKE MORE COMFORTABLE TOLERATING LIQUIDS - Current Medication List Current Medications: Active Medications Amino Acids (Prosource No Carb Liquid Pkt) 30 ml PO BID@0800,1730 [facility] Last Admin: 03/13/17 09:21 Dose: 30 ml Diazepam (Valium -) 5 mg PO BID [facility] Stop: 03/14/17 22:01 Last Admin: 03/13/17 09:21 Dose: 5 mg Diazepam (Valium -) 5 mg PO DAILY [facility] Stop: 03/15/17 10:01 Diazepam (Valium -) 10 mg PO Q4H PRN PRN Reason: WITHDRAWAL(CONT SUBST) Stop: 03/14/17 12:30 Hydromorphone HCl (Dilaudid Injection -) 2 mg IVPB Q4H PRN PRN Reason: PAIN Last Admin: 03/13/17 11:19 Dose: 2 mg Imipenem/Cilastatin Sodium 500 (mg/ Sodium Chloride) 100 mls @ 200 mls/hr IVPB Q6H-IV [facility] PRN Reason: Protocol Last Admin: 03/13/17 09:22 Dose: 200 mls/hr Dextrose/Sodium Chloride (D5-Ns -) 1,000 mls @ 150 mls/hr IV ASDIR [facility] Last Admin: 03/13/17 10:15 Dose: 150 mls/hr Ondansetron HCl (Zofran Odt -) 8 mg SL Q6H PRN PRN Reason: NAUSEA AND/OR VOMITING Last Admin: 03/07/17 11:23 Dose: 8 mg Multivit/Folic Acid/Iron ( Vitamins (Sjr) -) 1 tab PO DAILY [facility] Last Admin: 03/13/17 09:21 Dose: 1 tab Ranitidine HCl (Zantac -) 150 mg PO BID [facility] Last Admin: 03/13/17 09:21 Dose: 150 mg Thiamine HCl (Vitamin B1 -) 100 mg PO HS [facility] Last Admin: 03/12/17 22:31 Dose: 100 mg - Objective Vital Signs: Vital Signs Temperature 98.3 F 03/13/17 09:00 Pulse Rate 88 03/13/17 09:00 Respiratory Rate 20 03/13/17 09:00 Blood Pressure 153/90 03/13/17 09:00 O2 Sat by Pulse Oximetry (%) 98 03/12/17 21:00 Constitutional: Yes: Mild Distress Eyes: Yes: WNL HENT: Yes: WNL Neck: Yes: WNL Cardiovascular: Yes: WNL Respiratory: Yes: WNL Gastrointestinal: Yes: WNL Genitourinary: Yes: WNL Musculoskeletal: Yes: WNL Extremities: Yes: WNL Edema: No Peripheral Pulses WNL: Yes Integumentary: Yes: WNL Wound/Incision: Yes: Clean/Dry Neurological: Yes: WNL ...Motor Strength: WNL Psychiatric: Yes: WNL Labs: CBC, BMP 03/13/17 09:25 03/12/17 12:30 Problem List - Problems (1) Acute pancreatitis Code(s): K85.90 - ACUTE PANCREATITIS WITHOUT NECROSIS OR INFECTION, UNSP Qualifiers: Pancreatitis type: alcohol induced Acute pancreatitis complication: unspecified Qualified Code(s): K85.20 - Alcohol induced acute pancreatitis without necrosis or infection (2) Alcohol dependence, continuous drinking behavior Code(s): F10.20 - ALCOHOL DEPENDENCE, UNCOMPLICATED (3) Alcohol-induced acute pancreatitis Code(s): K85.20 - ALCOHOL INDUCED ACUTE PANCREATITIS WITHOUT NECROSIS OR INFCT Qualifiers: Acute pancreatitis complication: uninfected necrosis Qualified Code(s): K85.21 - Alcohol induced acute pancreatitis with uninfected necrosis (4) 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
--- NOTE | 2017-03-13 11:33 | PN ---
Progress Note, Physician History of Present Illness: Chart reviewed. clinically the same Tolerating current diet, po hydration labs better - Current Medication List Current Medications: Active Medications Amino Acids (Prosource No Carb Liquid Pkt) 30 ml PO BID@0800,1730 [facility] Last Admin: 03/13/17 09:21 Dose: 30 ml Diazepam (Valium -) 5 mg PO BID [facility] Stop: 03/14/17 22:01 Last Admin: 03/13/17 09:21 Dose: 5 mg Diazepam (Valium -) 5 mg PO DAILY [facility] Stop: 03/15/17 10:01 Diazepam (Valium -) 10 mg PO Q4H PRN PRN Reason: WITHDRAWAL(CONT SUBST) Stop: 03/14/17 12:30 Hydromorphone HCl (Dilaudid Injection -) 2 mg IVPB Q4H PRN PRN Reason: PAIN Last Admin: 03/13/17 11:19 Dose: 2 mg Imipenem/Cilastatin Sodium 500 (mg/ Sodium Chloride) 100 mls @ 200 mls/hr IVPB Q6H-IV [facility] PRN Reason: Protocol Last Admin: 03/13/17 09:22 Dose: 200 mls/hr Dextrose/Sodium Chloride (D5-Ns -) 1,000 mls @ 150 mls/hr IV ASDIR [facility] Last Admin: 03/13/17 10:15 Dose: 150 mls/hr Ondansetron HCl (Zofran Odt -) 8 mg SL Q6H PRN PRN Reason: NAUSEA AND/OR VOMITING Last Admin: 03/07/17 11:23 Dose: 8 mg Multivit/Folic Acid/Iron ( Vitamins (Sjr) -) 1 tab PO DAILY [facility] Last Admin: 03/13/17 09:21 Dose: 1 tab Ranitidine HCl (Zantac -) 150 mg PO BID [facility] Last Admin: 03/13/17 09:21 Dose: 150 mg Thiamine HCl (Vitamin B1 -) 100 mg PO HS [facility] Last Admin: 03/12/17 22:31 Dose: 100 mg - Objective Vital Signs: Vital Signs Temperature 98.3 F 03/13/17 09:00 Pulse Rate 88 03/13/17 09:00 Respiratory Rate 20 03/13/17 09:00 Blood Pressure 153/90 03/13/17 09:00 O2 Sat by Pulse Oximetry (%) 98 03/12/17 21:00 Constitutional: Yes: No Distress, Calm Eyes: Yes: Conjunctiva Clear HENT: Yes: Atraumatic Neck: Yes: Supple Cardiovascular: Yes: Regular Rate and Rhythm Respiratory: Yes: Regular Gastrointestinal: Yes: Soft, Tenderness, Tenderness, Epigastrium Neurological: Yes: Alert, Oriented Labs: CBC, BMP 03/13/17 09:25 03/12/17 12:30 Laboratory Results - last 24 hr 03/12/17 03/12/17 03/13/17 12:30 12:30 09:25 WBC 17.3 H 14.9 H RBC 4.30 4.04 Hgb 12.8 12.2 Hct 38.3 35.8 MCV 89.2 88.6 MCH 29.7 30.3 MCHC 33.3 34.2 RDW 13.9 13.7 Plt Count 454 H D 421 MPV 6.8 L 6.8 L Neutrophils % 80.9 Lymphocytes % 11.5 Monocytes % 6.3 Eosinophils % 0.9 Basophils % 0.4 Sodium 137 Potassium 4.1 D Chloride 99 Carbon Dioxide 28 Anion Gap 10 BUN 5 L Creatinine 0.9 Creat Clearance w eGFR > 60 Random Glucose 105 Calcium 9.0 Total Bilirubin 0.4 Direct Bilirubin 0.2 AST 42 H ALT 60 D Alkaline Phosphatase 76 Total Protein 7.1 Albumin 2.9 L Lipase 2540 H 03/13/17 09:25 WBC RBC Hgb Hct MCV MCH MCHC RDW Plt Count MPV Neutrophils % Lymphocytes % Monocytes % Eosinophils % Basophils % Sodium Potassium Chloride Carbon Dioxide Anion Gap BUN Creatinine Creat Clearance w eGFR Random Glucose Calcium Total Bilirubin Direct Bilirubin AST ALT Alkaline Phosphatase Total Protein Albumin Lipase 2586 H Problem List - Problems (1) Acute pancreatitis Code(s): K85.90 - ACUTE PANCREATITIS WITHOUT NECROSIS OR INFECTION, UNSP Qualifiers: Pancreatitis type: alcohol induced Acute pancreatitis complication: unspecified Qualified Code(s): K85.20 - Alcohol induced acute pancreatitis without necrosis or infection (2) Alcohol dependence with uncomplicated withdrawal Code(s): F10.230 - ALCOHOL DEPENDENCE WITH WITHDRAWAL, UNCOMPLICATED Assessment/Plan pancreatitis with necrosis, no other organ systems involved. ?infection vs inflammation alone Please keep IVF @ 350 cc/hr. Pain management and antiemetics, Ambien PRN Current diet CBC, CMP daily abx with pancreatic coverage Imipenem
--- NOTE | 2017-03-13 14:00 | PN ---
Progress Note (short form) - Note Progress Note: feels better less abdominal pain Vital Signs Period Temp Pulse Resp BP Sys/Goel Pulse Ox Last 24 Hr 98.3 F-98.7 F 85-100 18-20 124-153/80-97 98-98 cor-rrr lungs clear abd soft,nt ext no edema CBC, BMP 03/13/17 09:25 03/12/17 12:30 Microbiology 03/08/17 15:30 Blood - Peripheral Venous Blood Culture - Preliminary NO GROWTH OBTAINED AFTER 96 HOURS, INCUBATION TO CONTINUE FOR 1 DAYS. 03/08/17 15:30 Blood - Peripheral Venous Blood Culture - Preliminary NO GROWTH OBTAINED AFTER 96 HOURS, INCUBATION TO CONTINUE FOR 1 DAYS. Current Medications Amino Acids (Prosource No Carb Liquid Pkt) 30 ml PO TID [facility] Diazepam (Valium -) 5 mg PO BID [facility] Stop: 03/14/17 22:01 Last Admin: 03/13/17 09:21 Dose: 5 mg Diazepam (Valium -) 5 mg PO DAILY [facility] Stop: 03/15/17 10:01 Diazepam (Valium -) 10 mg PO Q4H PRN PRN Reason: WITHDRAWAL(CONT SUBST) Stop: 03/14/17 12:30 Hydromorphone HCl (Dilaudid Injection -) 2 mg IVPB Q4H PRN PRN Reason: PAIN Last Admin: 03/13/17 11:19 Dose: 2 mg Imipenem/Cilastatin Sodium 500 (mg/ Sodium Chloride) 100 mls @ 200 mls/hr IVPB Q6H-IV [facility] PRN Reason: Protocol Last Admin: 03/13/17 09:22 Dose: 200 mls/hr Dextrose/Sodium Chloride (D5-Ns -) 1,000 mls @ 150 mls/hr IV ASDIR [facility] Last Admin: 03/13/17 10:15 Dose: 150 mls/hr Ondansetron HCl (Zofran Odt -) 8 mg SL Q6H PRN PRN Reason: NAUSEA AND/OR VOMITING Last Admin: 03/07/17 11:23 Dose: 8 mg Multivit/Folic Acid/Iron ( Vitamins (Sjr) -) 1 tab PO DAILY [facility] Last Admin: 03/13/17 09:21 Dose: 1 tab Ranitidine HCl (Zantac -) 150 mg PO BID [facility] Last Admin: 03/13/17 09:21 Dose: 150 mg Thiamine HCl (Vitamin B1 -) 100 mg PO HS [facility] Last Admin: 03/12/17 22:31 Dose: [address] scan results noted a/p pancreatitis continue imipenem day #3 clinically improved gi/surgery following Problem List - Problems (1) Acute pancreatitis Code(s): K85.90 - ACUTE PANCREATITIS WITHOUT NECROSIS OR INFECTION, UNSP Qualifiers: Pancreatitis type: alcohol induced Acute pancreatitis complication: unspecified Qualified Code(s): K85.20 - Alcohol induced acute pancreatitis without necrosis or infection (2) Fever Code(s): R50.9 - FEVER, UNSPECIFIED
[2017-03-13] MEDS ORDERED: ZOLPIDEM TARTRATE 5 MG TABLET PO ONE (21:00)
[2017-03-13] MEDS: THIAMINE HCL 100 MG TABLET (FP) PO SCH (22:32)
[2017-03-14] MEDS: HYDROmorphone HCL CARPU-JECT 2 MG/1 ML DISP.SYRIN IVPB PRN ×3 (03:03→10:50)
[2017-03-14] MEDS: IMIPENEM/CILASTATIN SODIUM 500 MG in SODIUM CHLORIDE 100 ML IVPB SCH ×4 (03:03→20:46)
[2017-03-14] MEDS: AMINO ACIDS/PROTEIN HYDROLYS 30 ML LIQUID.PKT PO SCH ×3 (06:54→21:16)
--- NOTE | 2017-03-14 10:06 | PN ---
Progress Note, Physician Chief Complaint: epigastric pain History of Present Illness: No recent events. Seen and examined in bed. No nausea or vomiting. Tolerating clears. Pain is minimal, but he c/o feeling full quickly after drinking liquids , and that his stomach is slow to empty. Had some more formed stool, better than previous loose ones. No fevers last few days. On Imipenem. WBC coming down , lipase about 2500, no new labs today. Had trouble sleeping last night, but overall feeling a bit better. - Current Medication List Current Medications: Active Medications Amino Acids (Prosource No Carb Liquid Pkt) 30 ml PO TID [facility] Last Admin: 03/14/17 06:54 Dose: 30 ml Diazepam (Valium -) 5 mg PO BID [facility] Stop: 03/14/17 22:01 Last Admin: 03/13/17 22:32 Dose: 5 mg Diazepam (Valium -) 5 mg PO DAILY [facility] Stop: 03/15/17 10:01 Diazepam (Valium -) 10 mg PO Q4H PRN PRN Reason: WITHDRAWAL(CONT SUBST) Stop: 03/14/17 12:30 Hydromorphone HCl (Dilaudid Injection -) 2 mg IVPB Q4H PRN PRN Reason: PAIN Last Admin: 03/14/17 06:51 Dose: 2 mg Imipenem/Cilastatin Sodium 500 (mg/ Sodium Chloride) 100 mls @ 200 mls/hr IVPB Q6H-IV [facility] PRN Reason: Protocol Last Admin: 03/14/17 03:03 Dose: 200 mls/hr Dextrose/Sodium Chloride (D5-Ns -) 1,000 mls @ 150 mls/hr IV ASDIR [facility] Last Admin: 03/13/17 10:15 Dose: 150 mls/hr Ondansetron HCl (Zofran Odt -) 8 mg SL Q6H PRN PRN Reason: NAUSEA AND/OR VOMITING Last Admin: 03/07/17 11:23 Dose: 8 mg Multivit/Folic Acid/Iron ( Vitamins (Sjr) -) 1 tab PO DAILY [facility] Last Admin: 03/13/17 09:21 Dose: 1 tab Ranitidine HCl (Zantac -) 150 mg PO BID [facility] Last Admin: 03/13/17 22:32 Dose: 150 mg Thiamine HCl (Vitamin B1 -) 100 mg PO HS [facility] Last Admin: 03/13/17 22:32 Dose: 100 mg - Objective Vital Signs: Vital Signs Temperature 98.1 F 03/14/17 06:00 Pulse Rate 85 03/14/17 06:00 Respiratory Rate 18 03/14/17 06:00 Blood Pressure 143/92 03/14/17 06:00 O2 Sat by Pulse Oximetry (%) 98 03/13/17 20:57 Constitutional: Yes: Well Nourished, No Distress, Calm Eyes: Yes: Conjunctiva Clear, EOM Intact. No: Sclera Icterus HENT: Yes: Atraumatic, Normocephalic Gastrointestinal: Yes: Soft, Distention (mild). No: Tenderness, Tenderness, Epigastrium Genitourinary: No: CVA Tenderness - Left, CVA Tenderness - Right Extremities: No: Cool, Cyanosis Edema: No Integumentary: No: Jaundice, Rash Neurological: Yes: Alert, Oriented Psychiatric: Yes: Alert, Oriented. No: Agitated Labs: no new labs today, previous: CBC, BMP 03/13/17 09:25 03/12/17 12:30 CMP Sodium 137 mmol/L (136-145) 03/12/17 12:30 Potassium 4.1 mmol/L (3.5-5.1) D 03/12/17 12:30 Chloride 99 mmol/L (98-107) 03/12/17 12:30 Carbon Dioxide 28 mmol/L (21-32) 03/12/17 12:30 Anion Gap 10 (8-16) 03/12/17 12:30 BUN 5 mg/dL (7-18) L 03/12/17 12:30 Creatinine 0.9 mg/dL (0.7-1.3) 03/12/17 12:30 Creat Clearance w eGFR > 60 (>60) 03/12/17 12:30 Random Glucose 105 mg/dL (74-106) 03/12/17 12:30 Calcium 9.0 mg/dL (8.5-10.1) 03/12/17 12:30 Magnesium 1.9 mg/dL (1.8-2.4) 03/05/17 06:20 Total Bilirubin 0.4 mg/dL (0.2-1.0) 03/12/17 12:30 Direct Bilirubin 0.2 mg/dL (0.0-0.2) 03/12/17 12:30 AST 42 U/L (15-37) H 03/12/17 12:30 ALT 60 U/L (12-78) D 03/12/17 12:30 Alkaline Phosphatase 76 U/L (45-117) 03/12/17 12:30 C-Reactive Protein 17.6 MG/DL (0.00-0.3) H 03/10/17 07:30 Total Protein 7.1 g/dl (6.4-8.2) 03/12/17 12:30 Albumin 2.9 g/dl (3.4-5.0) L 03/12/17 12:30 Triglycerides 55 mg/dL (35-160) 03/04/17 08:05 Cholesterol 213 mg/dL (50-200) H 03/04/17 08:05 Total LDL Cholesterol 137 mg/dL (5-100) H 03/04/17 08:05 HDL Cholesterol 61 mg/dL (40-60) H 03/04/17 08:05 Total Amylase 235 U/L (25-115) H 03/11/17 06:45 Lipase 2586 U/L (73-393) H 03/13/17 09:25 - ....Imaging Cat Scan: Report Reviewed (all recent), Image Reviewed Problem List - Problems (1) Alcohol-induced acute pancreatitis Assessment/Plan: alcoholic pancreatitis with small area of pancreatic necrosis and early/ organizing separate collection, but with significant secondary inflammation and peripancreatic fluid/fat necrosis tolerating clears - clinical exam continues to improve likely slow gastric and proximal SB motility secondary to inflammation consider reglan prn? continue IVF on imipenem per ID continue to trend labs replete lytes prn pain control prn GI/DVT prophylaxis GI and ID on board detox following no acute surgical issues at this time will follow peripherally, please call with any questions Code(s): K85.20 - ALCOHOL INDUCED ACUTE PANCREATITIS WITHOUT NECROSIS OR INFCT Qualifiers: Acute pancreatitis complication: uninfected necrosis Qualified Code(s): K85.21 - Alcohol induced acute pancreatitis with uninfected necrosis (2) Alcohol dependence, continuous drinking behavior Code(s): F10.20 - ALCOHOL DEPENDENCE, UNCOMPLICATED (3) Drug abuse, marijuana Code(s): F12.10 - CANNABIS ABUSE, UNCOMPLICATED (4) Percocet use disorder, mild, abuse Code(s): F11.10 - OPIOID ABUSE, UNCOMPLICATED
[2017-03-14] MEDS ORDERED: PT OWN MED DRAWER 7, Y5N ONE ×4 (10:25→19:53)
[2017-03-14] MEDS ORDERED: METOCLOPRAMIDE HCL INJECTION 10 MG/2 ML VIAL IVPUSH PRN (10:27)
[2017-03-14] MEDS: DEXTROSE 5%-NORMAL SALINE 1,000 ML IV SCH ×2 (10:49→18:37)
[2017-03-14] MEDS: diazePAM 5 MG TABLET PO SCH ×2 (10:50→21:17)
[2017-03-14] MEDS: PRENATAL VITAMINS W/ FOLIC ACID TABLET (FP) PO SCH (10:50)
[2017-03-14] MEDS: RANITIDINE HCL 150 MG TABLET (FP) PO SCH ×2 (10:50→21:17)
--- NOTE | 2017-03-14 10:55 | PN ---
Progress Note, Physician Chief Complaint: PATIENT COMFORTABLE AWAKE FEELING BETTER - Current Medication List Current Medications: Active Medications Amino Acids (Prosource No Carb Liquid Pkt) 30 ml PO TID [facility] Last Admin: 03/14/17 06:54 Dose: 30 ml Diazepam (Valium -) 5 mg PO BID [facility] Stop: 03/14/17 22:01 Last Admin: 03/14/17 10:50 Dose: 5 mg Diazepam (Valium -) 5 mg PO DAILY [facility] Stop: 03/15/17 10:01 Diazepam (Valium -) 10 mg PO Q4H PRN PRN Reason: WITHDRAWAL(CONT SUBST) Stop: 03/14/17 12:30 Hydromorphone HCl (Dilaudid Injection -) 2 mg IVPB Q4H PRN PRN Reason: PAIN Last Admin: 03/14/17 10:50 Dose: 2 mg Imipenem/Cilastatin Sodium 500 (mg/ Sodium Chloride) 100 mls @ 200 mls/hr IVPB Q6H-IV [facility] PRN Reason: Protocol Last Admin: 03/14/17 10:49 Dose: 200 mls/hr Dextrose/Sodium Chloride (D5-Ns -) 1,000 mls @ 150 mls/hr IV ASDIR [facility] Last Admin: 03/14/17 10:49 Dose: 150 mls/hr Metoclopramide HCl (Reglan Injection -) 10 mg IVPUSH Q8H PRN PRN Reason: NAUSEA AND/OR VOMITING Ondansetron HCl (Zofran Odt -) 8 mg SL Q6H PRN PRN Reason: NAUSEA AND/OR VOMITING Last Admin: 03/07/17 11:23 Dose: 8 mg Multivit/Folic Acid/Iron ( Vitamins (Sjr) -) 1 tab PO DAILY [facility] Last Admin: 03/14/17 10:50 Dose: 1 tab Ranitidine HCl (Zantac -) 150 mg PO BID [facility] Last Admin: 03/14/17 10:50 Dose: 150 mg Thiamine HCl (Vitamin B1 -) 100 mg PO HS [facility] Last Admin: 03/13/17 22:32 Dose: 100 mg - Objective Vital Signs: Vital Signs Temperature 98.1 F 03/14/17 06:00 Pulse Rate 85 03/14/17 06:00 Respiratory Rate 18 03/14/17 06:00 Blood Pressure 143/92 03/14/17 06:00 O2 Sat by Pulse Oximetry (%) 98 03/13/17 20:57 Constitutional: Yes: Mild Distress Eyes: Yes: WNL HENT: Yes: WNL Neck: Yes: WNL Cardiovascular: Yes: WNL Respiratory: Yes: WNL Gastrointestinal: Yes: Tenderness Genitourinary: Yes: WNL Musculoskeletal: Yes: WNL Extremities: Yes: WNL Edema: No Peripheral Pulses WNL: Yes Integumentary: Yes: WNL Wound/Incision: Yes: Clean/Dry Neurological: Yes: WNL ...Motor Strength: WNL Psychiatric: Yes: WNL Labs: CBC, BMP 03/13/17 09:25 03/12/17 12:30 Problem List - Problems (1) Acute pancreatitis Code(s): K85.90 - ACUTE PANCREATITIS WITHOUT NECROSIS OR INFECTION, UNSP Qualifiers: Pancreatitis type: alcohol induced Acute pancreatitis complication: unspecified Qualified Code(s): K85.20 - Alcohol induced acute pancreatitis without necrosis or infection (2) Alcohol dependence, continuous drinking behavior Code(s): F10.20 - ALCOHOL DEPENDENCE, UNCOMPLICATED (3) Alcohol-induced acute pancreatitis Code(s): K85.20 - ALCOHOL INDUCED ACUTE PANCREATITIS WITHOUT NECROSIS OR INFCT Qualifiers: Acute pancreatitis complication: uninfected necrosis Qualified Code(s): K85.21 - Alcohol induced acute pancreatitis with uninfected necrosis (4) 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
[2017-03-14] MEDS ORDERED: morphine CARPU-JECT 2 MG/1 ML DISP.SYRIN IVPUSH PRN (11:12)
[2017-03-14 12:01] LABS: MCH 29.4 pg (25.7-33.7); MCHC 33.5 g/dl (32.0-35.9); MEAN CELL VOLUME 87.7 fl (80-96); MEAN PLT VOLUME 6.7 fl (7.5-11.1); PLATELET COUNT 479 K/MM3 (134-434); RDW 14.2 % (11.9-15.9); WHITE BLOOD COUNT 12.5 K/mm3 (4.0-10.0)
[2017-03-14] MEDS ORDERED: DICYCLOMINE HCL 20 MG TABLET PO PRN (12:21)
--- NOTE | 2017-03-14 12:23 | PN ---
Progress Note, Physician History of Present Illness: Chart reviewed. clinically better, still recurrent epigastric/Left flank pain Tolerating current diet, po hydration - Current Medication List Current Medications: Active Medications Amino Acids (Prosource No Carb Liquid Pkt) 30 ml PO TID [facility] Last Admin: 03/14/17 06:54 Dose: 30 ml Diazepam (Valium -) 5 mg PO BID [facility] Stop: 03/14/17 22:01 Last Admin: 03/14/17 10:50 Dose: 5 mg Diazepam (Valium -) 5 mg PO DAILY [facility] Stop: 03/15/17 10:01 Imipenem/Cilastatin Sodium 500 (mg/ Sodium Chloride) 100 mls @ 200 mls/hr IVPB Q6H-IV [facility] PRN Reason: Protocol Last Admin: 03/14/17 10:49 Dose: 200 mls/hr Dextrose/Sodium Chloride (D5-Ns -) 1,000 mls @ 150 mls/hr IV ASDIR [facility] Last Admin: 03/14/17 10:49 Dose: 150 mls/hr Metoclopramide HCl (Reglan Injection -) 10 mg IVPUSH Q8H PRN PRN Reason: NAUSEA AND/OR VOMITING Morphine Sulfate (Morphine Injection -) 2 mg IVPUSH Q6H PRN PRN Reason: PAIN Ondansetron HCl (Zofran Odt -) 8 mg SL Q6H PRN PRN Reason: NAUSEA AND/OR VOMITING Last Admin: 03/07/17 11:23 Dose: 8 mg Multivit/Folic Acid/Iron ( Vitamins (Sjr) -) 1 tab PO DAILY [facility] Last Admin: 03/14/17 10:50 Dose: 1 tab Ranitidine HCl (Zantac -) 150 mg PO BID [facility] Last Admin: 03/14/17 10:50 Dose: 150 mg Thiamine HCl (Vitamin B1 -) 100 mg PO HS [facility] Last Admin: 03/13/17 22:32 Dose: 100 mg - Objective Vital Signs: Vital Signs Temperature 98.1 F 03/14/17 06:00 Pulse Rate 85 03/14/17 06:00 Respiratory Rate 18 03/14/17 06:00 Blood Pressure 143/92 03/14/17 06:00 O2 Sat by Pulse Oximetry (%) 98 03/13/17 20:57 Constitutional: Yes: No Distress, Calm Eyes: Yes: Conjunctiva Clear HENT: Yes: Atraumatic Neck: Yes: Supple Cardiovascular: Yes: Regular Rate and Rhythm Respiratory: Yes: Regular Gastrointestinal: Yes: Soft, Tenderness, Tenderness, Epigastrium Neurological: Yes: Alert, Oriented Labs: CBC, BMP 03/12/17 12:30 Problem List - Problems (1) Acute pancreatitis Code(s): K85.90 - ACUTE PANCREATITIS WITHOUT NECROSIS OR INFECTION, UNSP Qualifiers: Pancreatitis type: alcohol induced Acute pancreatitis complication: unspecified Qualified Code(s): K85.20 - Alcohol induced acute pancreatitis without necrosis or infection (2) Alcohol dependence with uncomplicated withdrawal Code(s): F10.230 - ALCOHOL DEPENDENCE WITH WITHDRAWAL, UNCOMPLICATED Assessment/Plan pancreatitis with necrosis, no other organ systems involved. ?infection vs inflammation alone Pain management and antiemetics, Ambien PRN abx bentyl prn advance dist to soft
[2017-03-14] MEDS: morphine SULFATE 4 MG/ML VIAL IVPUSH PRN (17:03)
[2017-03-14] MEDS ORDERED: ZOLPIDEM TARTRATE 5 MG TABLET PO PRN (17:56)
[2017-03-14] MEDS ORDERED: DICYCLOMINE HCL 10 MG CAPSULE PO PRN (19:55)
[2017-03-14] MEDS ORDERED: DICYCLOMINE HCL 10 MG CAPSULE PO ONE (20:00)
[2017-03-14] MEDS ORDERED: DICYCLOMINE HCL 20 MG TABLET PO ONE (20:00)
[2017-03-14] MEDS: THIAMINE HCL 100 MG TABLET (FP) PO SCH (21:17)
[2017-03-15] MEDS: morphine SULFATE 4 MG/ML VIAL IVPUSH PRN ×2 (00:22→06:28)
[2017-03-15] MEDS: DEXTROSE 5%-NORMAL SALINE 1,000 ML IV SCH (02:36)
[2017-03-15] MEDS: IMIPENEM/CILASTATIN SODIUM 500 MG in SODIUM CHLORIDE 100 ML IVPB SCH ×2 (02:37→08:10)
[2017-03-15] MEDS ORDERED: PT OWN MED DRAWER 7, Y5N ONE ×2 (05:29→09:05)
[2017-03-15] MEDS: AMINO ACIDS/PROTEIN HYDROLYS 30 ML LIQUID.PKT PO SCH (06:28)
[2017-03-15] MEDS: PRENATAL VITAMINS W/ FOLIC ACID TABLET (FP) PO SCH (09:06)
[2017-03-15] MEDS: RANITIDINE HCL 150 MG TABLET (FP) PO SCH (09:06)
[2017-03-15 09:38] VITALS: BP 123/88; PULSE 88; TEMP 98.7
--- NOTE | 2017-03-15 09:59 | PN ---
Progress Note (short form) - Note Progress Note: feels better less abdominal pain diet being advanced Vital Signs Period Temp Pulse Resp BP Sys/Goel Pulse Ox Last 24 Hr 98.2 F-98.7 F 67-88 20-20 121-141/59-90 98 cor rrr lungs clear abd soft,nt ext no edema CBC, BMP 03/14/17 11:56 03/12/17 12:30 Microbiology 03/08/17 15:30 Blood - Peripheral Venous Blood Culture - Final NO GROWTH AFTER 5 DAYS INCUBATION 03/08/17 15:30 Blood - Peripheral Venous Blood Culture - Final NO GROWTH AFTER 5 DAYS INCUBATION 03/08/17 15:00 Urine - Urine Clean Catch Urine Culture - Final NO GROWTH OBTAINED ct scan results noted a/p pancreatitis on Day #5 imipenem, will d/w GI, consider d/c antibiotics next 24-48 hours clinically improved gi/surgery following Problem List - Problems (1) Acute pancreatitis Code(s): K85.90 - ACUTE PANCREATITIS WITHOUT NECROSIS OR INFECTION, UNSP Qualifiers: Pancreatitis type: alcohol induced Acute pancreatitis complication: unspecified Qualified Code(s): K85.20 - Alcohol induced acute pancreatitis without necrosis or infection (2) Fever Code(s): R50.9 - FEVER, UNSPECIFIED
[2017-03-15] MEDS ORDERED: diazePAM 5 MG TABLET PO SCH (10:00)
[2017-03-15 10:45] LABS: MCH 29.3 pg (25.7-33.7); MCHC 32.8 g/dl (32.0-35.9); MEAN CELL VOLUME 89.2 fl (80-96); MEAN PLT VOLUME 6.9 fl (7.5-11.1); PLATELET COUNT 549 K/MM3 (134-434); RDW 14.3 % (11.9-15.9); WHITE BLOOD COUNT 12.5 K/mm3 (4.0-10.0)
--- NOTE | 2017-03-15 10:51 | PN ---
Progress Note, Physician History of Present Illness: clinically much better Tolerating current diet - Current Medication List Current Medications: Active Medications Amino Acids (Prosource No Carb Liquid Pkt) 30 ml PO TID [facility] Last Admin: 03/15/17 06:28 Dose: 30 ml Dicyclomine HCl (Bentyl -) 20 mg PO Q6H PRN PRN Reason: MUSCLE SPASMS Imipenem/Cilastatin Sodium 500 (mg/ Sodium Chloride) 100 mls @ 200 mls/hr IVPB Q6H-IV [facility] PRN Reason: Protocol Last Admin: 03/15/17 08:10 Dose: 200 mls/hr Dextrose/Sodium Chloride (D5-Ns -) 1,000 mls @ 150 mls/hr IV ASDIR [facility] Last Admin: 03/15/17 02:36 Dose: 150 mls/hr Metoclopramide HCl (Reglan Injection -) 10 mg IVPUSH Q8H PRN PRN Reason: NAUSEA AND/OR VOMITING Morphine Sulfate (Morphine Sulfate) 2 mg IVPUSH Q6H PRN PRN Reason: PAIN Last Admin: 03/15/17 06:28 Dose: 2 mg Ondansetron HCl (Zofran Odt -) 8 mg SL Q6H PRN PRN Reason: NAUSEA AND/OR VOMITING Last Admin: 03/07/17 11:23 Dose: 8 mg Multivit/Folic Acid/Iron ( Vitamins (Sjr) -) 1 tab PO DAILY [facility] Last Admin: 03/15/17 09:06 Dose: 1 tab Ranitidine HCl (Zantac -) 150 mg PO BID [facility] Last Admin: 03/15/17 09:06 Dose: 150 mg Thiamine HCl (Vitamin B1 -) 100 mg PO HS [facility] Last Admin: 03/14/17 21:17 Dose: 100 mg Zolpidem Tartrate (Ambien -) 10 mg PO HS PRN PRN Reason: INSOMNIA Last Admin: 03/14/17 21:17 Dose: 10 mg - Objective Vital Signs: Vital Signs Temperature 98.7 F 03/15/17 09:37 Pulse Rate 88 03/15/17 09:37 Respiratory Rate 20 03/15/17 09:37 Blood Pressure 123/88 03/15/17 09:37 O2 Sat by Pulse Oximetry (%) 98 03/15/17 09:00 Constitutional: Yes: No Distress, Calm Gastrointestinal: Yes: Soft. No: Tenderness Neurological: Yes: Alert, Oriented Problem List - Problems (1) Acute pancreatitis Code(s): K85.90 - ACUTE PANCREATITIS WITHOUT NECROSIS OR INFECTION, UNSP Qualifiers: Pancreatitis type: alcohol induced Acute pancreatitis complication: unspecified Qualified Code(s): K85.20 - Alcohol induced acute pancreatitis without necrosis or infection (2) Alcohol dependence with uncomplicated withdrawal Code(s): F10.230 - ALCOHOL DEPENDENCE WITH WITHDRAWAL, UNCOMPLICATED Assessment/Plan Soft, low fat diet PO hydration Abx as per ID pain management PRN
[2017-03-15 11:00] LABS: ALBUMIN 3.1 g/dl (3.4-5.0); ANION GAP 5 (8-16); BILIRUBIN,TOTAL 0.3 mg/dL (0.2-1.0); CO2 30 mmol/L (21-32); CREATININE 0.7 mg/dL (0.7-1.3); GLUCOSE,RANDOM 111 mg/dL (74-106); SGOT/AST 14 U/L (15-37); SGPT/ALT 38 U/L (12-78); TOT PROT 7.6 g/dl (6.4-8.2)
[2017-03-15 11:01] LABS: ALK PHOS 72 U/L (45-117)
--- NOTE | 2017-03-15 12:03 | DS ---
Physical Examination Vital Signs: Vital Signs Temperature 98.7 F 03/15/17 09:37 Pulse Rate 88 03/15/17 09:37 Respiratory Rate 20 03/15/17 09:37 Blood Pressure 123/88 03/15/17 09:37 O2 Sat by Pulse Oximetry (%) 98 03/15/17 09:00 Findings/Remarks: tolerating meals, no pain Constitutional: Yes: No Distress Eyes: Yes: WNL HENT: Yes: WNL Neck: Yes: WNL Cardiovascular: Yes: WNL Respiratory: Yes: WNL Gastrointestinal: Yes: WNL Renal/: Yes: WNL Musculoskeletal: Yes: WNL Extremities: Yes: WNL Edema: No Peripheral Pulses WNL: Yes Integumentary: Yes: WNL Wound/Incision: Yes: Clean/Dry Neurological: Yes: WNL ...Motor Strength: WNL Psychiatric: Yes: WNL Labs: CBC, BMP 03/15/17 09:45 03/15/17 09:45 Discharge Summary Reason For Visit: ACUTE PANCREATITIS Current Active Problems Acute pancreatitis (Acute) Alcohol dependence, continuous drinking behavior (Acute) Alcohol-induced acute pancreatitis (Acute) Drug abuse, marijuana (Acute) Epigastric pain (Acute) Fever (Acute) Pancreatic abnormality (Acute) Pancreatic necrosis (Acute) Percocet use disorder, mild, abuse (Acute) Pneumonia (Acute) Procedures: Principal: mrcp/ct scan Hospital Course: admitted acute pancreatitis with infection, iv abx, iv fluids, will advance diet slowly, NO ETOH discussed many times Condition: Stable - Instructions Diet, Activity, Other Instructions: Avoid all Alcoholic Beverages!!!! liquid diet low fat and advance to soft diet see Dr Alfonso in 2-3 days Disposition: HOME - Home Medications Comprehensive Discharge Medication List: Ambulatory Orders Dicyclomine HCl [Bentyl -] 20 mg PO Q6H PRN #90 tablet 03/15/17 Ondansetron [Zofran Odt -] 8 mg SL Q6H PRN #60 tab.rapdis 03/15/17 Ranitidine [Zantac -] 150 mg PO BID #60 tablet 03/15/17 Thiamine HCl [Vitamin B1 -] 100 mg PO HS #30 tablet 03/15/17
== END 2017-03-15 12:48 | disposition home or self-care (01) | DRG 282 ==
LOC: JER 21:52 → JERBED 03-04 01:37 → J5S 03-04 03:15
PROVIDERS: ADMIT Family Medicine; ATTEND Family Medicine
DX: K85.21 Alcohol induced acute pancreatitis with uninfected necrosis (principal); J90 Pleural effusion, not elsewhere classified; F10.230 Alcohol dependence with withdrawal, uncomplicated; F12.10 Cannabis abuse, uncomplicated; F10.280 Alcohol dependence with alcohol-induced anxiety disorder; F11.10 Opioid abuse, uncomplicated; F41.8 Other specified anxiety disorders; R50.9 Fever, unspecified; J98.11 Atelectasis; E87.6 Hypokalemia
CPT/HCPCS: 36415; 71010-TC; 71020-TC; 74000-TC; 74170-TC; 74177-TC; 74181-TC; 76775-TC; 80053; 80061; 81003; 81015; 82150; 82248; 82787; 83690; 83721; 83735; 84478; 85025; 85027; 86140; 87040; 87086; 93005; 93010; 94010; 97116-GP; 97161-GP; 99281-25; Q9967

== ENCOUNTER 2018-06-18 15:41 | Inpatient (IN) | payer OTHER ==
[2018-06-18 20:52] VITALS: BMI 19.8
--- NOTE | 2018-06-18 22:13 | HP ---
COWS - Scale Resting Pulse: 2= ND 101-120 Sweatin= No chills or Flushing Restless Observation: 0= Sits Still Pupil Size: 1= Pupils >than Normal Bone or Joint Aches: 1= Mild Discomfort Runny Nose/ Eye Tearin= Runny Nose/Eyes GI Upset > 30mins: 3= Vomiting/Diarrhea (vomiting x 6, no diarrhea) Tremor Observation: 0= None Yawning Observation: 0= None Anxiety or Irritability: 1=Feels Anxious/Irritable Goose Flesh Skin: 0=Smooth Skin COWS Score: 10 CIWA Score Nausea/Vomitin (vomiting x 6) Muscle Tremors: 4-Moderate,w/Arms Extend Anxiety: 4-Mod. Anxious/Guarded Agitation: 4-Moderately Restless Paroxysmal Sweats: 2 Orientation: 0-Oriented Tacttile Disturbances: 0-None Auditory Disturbances: 0-None Visual Disturbances: 0-None Headache: 2-Mild CIWA-Ar Total Score: 19 - Admission Criteria [facility] Guidelines: Admission for Medically Managed Detox: Requires at least one of the followin. CIWA greater than 12 2. Seizures within the past 24 hours 3. Delirium tremens within the past 24 hours 4. Hallucinations within the past 24 hours 5. Acute intervention needed for co occurring medical disorder 6. Acute intervention needed for co occurring psychiatric disorder 7. Severe withdrawal that cannot be handled at a lower level of care (continued vomiting, continued diarrhea, abnormal vital signs) requiring intravenous medication and/or fluids 8. Admission ROS [facility] Chief Complaint: Seeking admission to detox from Alcohol and heroin Allergies/Adverse Reactions: Allergies Allergy/AdvReac Type Severity Reaction Status Date / Time No Known Allergies Allergy Verified 06/18/18 21:42 History of Present Illness: 27 years old male with a long history of alcohol and heroin dependence is seeking admission to detox. Patient reports that he has only used heroin for the first time 3 days ago. He does not want methadone prescription. Clonidine 0.1mg mg tablet Q6H ordered for withdrawal symptoms. He reports history of Pancreatitis, anemia, anxiety and depression. He denies suicide attempt and suicidal ideation at this time Exam Limitations: No Limitations - Ebola screening Have you traveled outside of the country in the last 21 days: No Have you had contact with anyone from an Ebola affected area: No Have you been sick,other than usual withdrawal symptoms: No Do you have a fever: No - Review of Systems Constitutional: Chills, Loss of Appetite, Malaise, Night Sweats, Changes in sleep EENT: reports: Sinus Pressure Respiratory: reports: No Symptoms reported Cardiac: reports: No Symptoms Reported GI: reports: Diarrhea, Poor Appetite, Poor Fluid Intake, Vomiting, Abdominal cramping : reports: No Symptoms Reported Musculoskeletal: reports: No Symptoms Reported Integumentary: reports: Dryness, Flushing Neuro: reports: Headache, Tremors, Dizziness Endocrine: reports: No Symptoms Reported Hematology: reports: No Symptoms Reported Psychiatric: reports: Mood/Affect Appropiate, Orientated x3, Anxious, Depressed Other Systems: Reviewed and Negative Patient History - Patient Medical History Hx Anemia: Yes (not taking any iron supplement) Hx Asthma: No Hx Chronic Obstructive Pulmonary Disease (COPD): No Hx Cancer: No Hx Cardiac Disorders: No Hx Congestive Heart Failure: No Hx Hypertension: No Hx Hypercholesterolemia: No Hx Pacemaker: No HX Cerebrovascular Accident: No Hx Seizures: No Hx Dementia: No Hx Diabetes: No Hx Gastrointestinal Disorders: No Hx Liver Disease: No Hx Genitourinary Disorders: No Hx Sexually Transmitted Disorders: No Hx Renal Disease (ESRD): No Hx Thyroid Disease: No Hx Human Immunodeficiency Virus (HIV): No Hx Hepatitis C: No Hx Depression: Yes Hx Suicide Attempt: No (DENIES) Hx Bipolar Disorder: No Hx Schizophrenia: No - Patient Surgical History Past Surgical History: No Hx Neurologic Surgery: No Hx Cataract Extraction: No Hx Cardiac Surgery: No Hx Lung Surgery: No Hx Breast Surgery: No Hx Breast Biopsy: No Hx Abdominal Surgery: No Hx Appendectomy: No Hx Cholecystectomy: No Hx Genitourinary Surgery: No Hx Section: No Hx Orthopedic Surgery: No Anesthesia Reaction: No - PPD History Date: 03/03/15 Results: 0 MM - Smoking Cessation Smoking history: Never smoked Have you smoked in the past 12 months: No Hx Chewing Tobacco Use: No - Substances Abused Alcohol Route: Oral Frequency: Daily Amount used: 2 PINTS Age of first use: 20 Date of Last Use: 06/18/18 Heroin Route: SNIFF Frequency: Daily Amount used: 1/2 GRAM Age of first use: 27 Date of Last Use: 06/18/18 Family Disease History - Family Disease History Family Disease History: Diabetes: Mother Admission Physical Exam BHS - Vital Signs Vital Signs: Vital Signs - 24 hr 06/18/18 20:43 Temperature 98.1 F Pulse Rate 120 H Respiratory 16 Rate Blood Pressure 120/92 - Physical General Appearance: Yes: Appropriately Dressed, Moderate Distress, Alcohol on Breath, Intoxicated HEENTM: Yes: EOMI, Normal ENT Inspection, Normal Voice, JEANNA Respiratory: Yes: Lungs Clear, Normal Breath Sounds, No Respiratory Distress Neck: Yes: Supple Breast: Yes: Breast Exam Deferred Cardiology: Yes: Tachycardia Abdominal: Yes: Normal Bowel Sounds, Soft Genitourinary: Yes: Within Normal Limits Musculoskeletal: Yes: Within Normal Limits Extremities: Yes: Tremors 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 NML intact, Alert, Normal Mood/Affect Integumentary: Yes: Warm Lymphatic: Yes: Within Normal Limits - Diagnostic (1) Acute pancreatitis Current Visit: Yes Status: Chronic Qualifiers: Pancreatitis type: alcohol induced Acute pancreatitis complication: unspecified Qualified Code(s): K85.20 - Alcohol induced acute pancreatitis without necrosis or infection (2) Alcohol dependence with uncomplicated withdrawal Current Visit: Yes Status: Chronic (3) Alcohol-induced acute pancreatitis Current Visit: Yes Status: Chronic Qualifiers: Acute pancreatitis complication: uninfected necrosis Qualified Code(s): K85.21 - Alcohol induced acute pancreatitis with uninfected necrosis (4) Alcohol-induced anxiety disorder Current Visit: No Status: Acute (5) Anxiety and depression Current Visit: No Status: Chronic Cleared for Admission [facility] - Detox or Rehab [facility] Level of Care: Medically Managed Detox Regimen/Protocol: Librium [facility] Breath Alcohol Content Breath Alcohol Content: 0.025 Urine Drug Screen - Results Drug Screen Negative: Yes Urine Drug Screen Results: THC-Marijuana, OPI-Opiates, BZO-Benzodiazepines Inpatient Rehab Admission - Rehab Decision to Admit Inpatient rehab admission?: No
[2018-06-18] MEDS ORDERED: MAG HYDROX/AL HYDROX/SIMETH 30 ML UNIT-DOSE CUP PO PRN (22:18)
[2018-06-18] MEDS ORDERED: METHOCARBAMOL 500 MG TABLET PO PRN (22:18)
[2018-06-18] MEDS ORDERED: BISMUTH SUBSALICYLATE 524 MG/30 ML UD PO PRN (22:18)
[2018-06-18] MEDS ORDERED: IBUPROFEN 400 MG TABLET (FP) PO PRN (22:18)
[2018-06-18] MEDS ORDERED: ACETAMINOPHEN 325 MG TABLET (FP) PO PRN ×2 (22:18)
[2018-06-18] MEDS ORDERED: MAGNESIUM HYDROX 2400MG/30ML ORAL SUSPENSION 30 ML CUP PO PRN (22:18)
[2018-06-18] MEDS ORDERED: MAGNESIUM CITRATE 300 ML BOTTLE PO PRN (22:18)
[2018-06-18] MEDS ORDERED: chlordiazePOXIDE HCL 25 MG CAPSULE PO PRN (22:18)
[2018-06-18] MEDS ORDERED: hydrOXYzine PAMOATE 25 MG CAPSULE (FP) PO PRN (22:18)
[2018-06-18] MEDS ORDERED: NICOTINE POLACRILEX 2 MG GUM BUC PRN (22:18)
[2018-06-18] MEDS ORDERED: cloNIDine HCL 0.1 MG TABLET PO PRN (22:20)
[2018-06-18] MEDS ORDERED: METHADONE HCL 10 MG TABLET (FOR DETOX USE ONLY) PO ONE (23:00)
[2018-06-18] MEDS: chlordiazePOXIDE HCL 25 MG CAPSULE PO SCH (23:40)
[2018-06-18] MEDS: MELATONIN 5 MG TABLETS PO PRN (23:43)
[2018-06-19] MEDS: chlordiazePOXIDE HCL 25 MG CAPSULE PO SCH ×4 (05:39→22:44)
[2018-06-19] MEDS ORDERED: METHADONE HCL 5 MG TABLET (FOR DETOX USE ONLY) PO ONE (10:00)
[2018-06-19] MEDS: PRENATAL VITAMINS W/ FOLIC ACID TABLET (FP) PO SCH (10:47)
[2018-06-19] MEDS: MENTHOL/PHENOL 1 EACH UD MM PRN ×2 (10:47→22:49)
[2018-06-19] MEDS: NICOTINE 14 MG/24 HOURS TOPICAL PATCH TD SCH (10:50)
--- NOTE | 2018-06-19 11:03 | EKG ---
Test Reason : Blood Pressure : / mmHG Vent. Rate : 085 BPM Atrial Rate : 085 BPM P-R Int : 146 ms QRS Dur : 096 ms QT Int : 344 ms P-R-T Axes : 068 082 046 degrees QTc Int : 409 ms NORMAL SINUS RHYTHM WITH SINUS ARRHYTHMIA NORMAL ECG WHEN COMPARED WITH ECG OF 03-MAR-2017 21:57, VENT. RATE HAS INCREASED BY 28 BPM INCOMPLETE RIGHT BUNDLE BRANCH BLOCK IS NO LONGER PRESENT Confirmed by JOSE ALEJANDRO HAIR MD ([id number]) on 06/19/2018 11:03:04 AM Referred By: Confirmed By:JOSE ALEJANDRO HAIR MD
[2018-06-19 11:16] LABS: HEMATOCRIT 42.1 % (35.4-49); HEMOGLOBIN 14.4 GM/dL (11.7-16.9); MCH 31.1 pg (25.7-33.7); MCHC 34.3 g/dl (32.0-35.9); MEAN CELL VOLUME 90.7 fl (80-96); PLATELET COUNT 207 K/MM3 (134-434); RBC 4.65 M/mm3 (4.00-5.60); RDW 13.2 % (11.9-15.9); WHITE BLOOD COUNT 12.5 K/mm3 (4.0-10.0)
[2018-06-19 11:36] LABS: ALBUMIN 4.4 g/dl (3.4-5.0); ALK PHOS 124 U/L (45-117); ANION GAP 7 MMOL/L (8-16); BLOOD UREA NITROGEN 15 mg/dL (7-18); CHLORIDE 86 mmol/L (98-107); CO2 37 mmol/L (21-32); CREATININE 0.9 mg/dL (0.55-1.3); GLUCOSE,RANDOM 90 mg/dL (74-106); POTASSIUM 4.2 mmol/L (3.5-5.1); SGOT/AST 39 U/L (15-37); SGPT/ALT 46 U/L (13-61); SODIUM 130 mmol/L (136-145); TOT PROT 8.4 g/dl (6.4-8.2)
--- NOTE | 2018-06-19 15:12 | PN ---
S CIWA - CIWA Score Nausea/Vomitin-Mild Nausea/No Vomiting Muscle Tremors: 4-Moderate,w/Arms Extend Anxiety: 4-Mod. Anxious/Guarded Agitation: 3 Paroxysmal Sweats: 1-Minimal Palms Moist Orientation: 0-Oriented Tacttile Disturbances: 0-None Auditory Disturbances: 0-None Visual Disturbances: 0-None Headache: 1-Very Mild CIWA-Ar Total Score: 14 BHS COWS - Scale Resting Pulse: 2= ND 101-120 Sweatin= Chills/Flushing Restless Observation: 0= Sits Still Pupil Size: 0= Normal to Room Light Bone or Joint Aches: 1= Mild Discomfort Runny Nose/ Eye Tearin= Nasal Congestion GI Upset > 30mins: 1= Stomach Cramp Tremor Observation of Outstretched Hands: 1= Tremor [place], Not Seen Yawning Observation: 2= >3x During Session Anxiety or Irritability: 1=Feels Anxious/Irritable Goose Flesh Skin: 0=Smooth Skin COWS Score: 10 S Progress Note (SOAP) Subjective: patient reporting that he is feeling ok today ambulating on hallway social with peers in day room, Objective: 06/19/18 15:15 Vital Signs Temperature 98.4 F 06/19/18 13:43 Pulse Rate 94 H 06/19/18 13:43 Respiratory Rate 18 06/19/18 13:43 Blood Pressure 136/86 06/19/18 13:43 O2 Sat by Pulse Oximetry (%) Laboratory Last Values WBC 12.5 K/mm3 (4.0-10.0) H 06/19/18 07:30 RBC 4.65 M/mm3 (4.00-5.60) 06/19/18 07:30 Hgb 14.4 GM/dL (11.7-16.9) 06/19/18 07:30 Hct 42.1 % (35.4-49) 06/19/18 07:30 MCV 90.7 fl (80-96) 06/19/18 07:30 MCH 31.1 pg (25.7-33.7) 06/19/18 07:30 MCHC 34.3 g/dl (32.0-35.9) 06/19/18 07:30 RDW 13.2 % (11.9-15.9) 06/19/18 07:30 Plt Count 207 K/MM3 (134-434) D 06/19/18 07:30 MPV 7.0 fl (7.5-11.1) L 06/19/18 07:30 Sodium 130 mmol/L (136-145) L 06/19/18 07:30 Potassium 4.2 mmol/L (3.5-5.1) 06/19/18 07:30 Chloride 86 mmol/L (98-107) L 06/19/18 07:30 Carbon Dioxide 37 mmol/L (21-32) H 06/19/18 07:30 Anion Gap 7 MMOL/L (8-16) L 06/19/18 07:30 BUN 15 mg/dL (7-18) 06/19/18 07:30 Creatinine 0.9 mg/dL (0.55-1.3) 06/19/18 07:30 Creat Clearance w eGFR 100.48 (>60) 06/19/18 07:30 Random Glucose 90 mg/dL (74-106) 06/19/18 07:30 Calcium 10.0 mg/dL (8.5-10.1) 06/19/18 07:30 Total Bilirubin 1.0 mg/dL (0.2-1) 06/19/18 07:30 AST 39 U/L (15-37) H 06/19/18 07:30 ALT 46 U/L (13-61) 06/19/18 07:30 Alkaline Phosphatase 124 U/L (45-117) H 06/19/18 07:30 Total Protein 8.4 g/dl (6.4-8.2) H 06/19/18 07:30 Albumin 4.4 g/dl (3.4-5.0) 06/19/18 07:30 RPR Titer Nonreactive (NONREACTIVE) 06/19/18 07:30 lab noted Assessment: 06/19/18 15:15 withdrawal sx Plan: continue etox
[2018-06-19] MEDS ORDERED: THIAMINE HCL 100 MG TABLET (FP) PO SCH (22:00)
[2018-06-19] MEDS: MELATONIN 5 MG TABLETS PO PRN (22:45)
[2018-06-20] MEDS: chlordiazePOXIDE HCL 25 MG CAPSULE PO SCH ×3 (05:45→17:14)
[2018-06-20] MEDS ORDERED: METHADONE HCL 10 MG TABLET (FOR DETOX USE ONLY) PO ONE (10:00)
[2018-06-20] MEDS: PRENATAL VITAMINS W/ FOLIC ACID TABLET (FP) PO SCH (10:11)
[2018-06-20] MEDS: NICOTINE 14 MG/24 HOURS TOPICAL PATCH TD SCH (10:11)
[2018-06-20] MEDS: MENTHOL/PHENOL 1 EACH UD MM PRN (10:12)
[2018-06-20 13:26] LABS: BASO % 0.5 % (0-2.0); EOS % 1.1 % (0-4.5); HEMATOCRIT 42.6 % (35.4-49); HEMOGLOBIN 15.3 GM/dL (11.7-16.9); LYMPH % 14.4 % (8-40); MCH 32.6 pg (25.7-33.7); MCHC 36.1 g/dl (32.0-35.9); MEAN CELL VOLUME 90.3 fl (80-96); MEAN PLT VOLUME 6.7 fl (7.5-11.1); MONO % 10.5 % (3.8-10.2); NEUT % 73.5 % (42.8-82.8); PLATELET COUNT 223 K/MM3 (134-434); RBC 4.71 M/mm3 (4.00-5.60); WHITE BLOOD COUNT 9.4 K/mm3 (4.0-10.0)
--- NOTE | 2018-06-20 17:17 | PN ---
[facility] CIWA - CIWA Score Nausea/Vomitin-No Nausea/No Vomiting Muscle Tremors: 3 Anxiety: 3 Agitation: 0-Normal Activity Paroxysmal Sweats: 2 Orientation: 0-Oriented Tacttile Disturbances: 2-Mild Itch/Numbness/Burn Auditory Disturbances: 0-None Visual Disturbances: 2-Mild Sensitivity Headache: 0-None Present CIWA-Ar Total Score: 12 S COWS - Scale Resting Pulse: 1= CO 81-100 Sweatin= Chills/Flushing Restless Observation: 0= Sits Still Pupil Size: 0= Normal to Room Light Bone or Joint Aches: 0= None Runny Nose/ Eye Tearin= None GI Upset > 30mins: 0= None Tremor Observation of Outstretched Hands: 2= Slight Tremor Visible Yawning Observation: 2= >3x During Session Anxiety or Irritability: 2=Irritable/Anxious Goose Flesh Skin: 0=Smooth Skin COWS Score: 8 S Progress Note (SOAP) Subjective: Tremors, Anxious, Fatigue, Sweating. Objective: PATIENT A & O X 3. IN NO ACUTE DISTRESS. 06/20/18 17:18 Vital Signs Temperature 98.6 F 06/20/18 13:57 Pulse Rate 100 H 06/20/18 13:57 Respiratory Rate 16 06/20/18 13:57 Blood Pressure 130/86 06/20/18 13:57 O2 Sat by Pulse Oximetry (%) Laboratory Tests 06/19/18 06/19/18 06/19/18 07:30 07:30 07:30 WBC 12.5 H RBC 4.65 Hgb 14.4 Hct 42.1 MCV 90.7 MCH 31.1 MCHC 34.3 RDW 13.2 Plt Count 207 D MPV 7.0 L Absolute Neuts (auto) Neutrophils % Lymphocytes % Monocytes % Eosinophils % Basophils % Nucleated RBC % Sodium 130 L Potassium 4.2 Chloride 86 L Carbon Dioxide 37 H Anion Gap 7 L BUN 15 Creatinine 0.9 Creat Clearance w eGFR 100.48 Random Glucose 90 Calcium 10.0 Total Bilirubin 1.0 AST 39 H ALT 46 Alkaline Phosphatase 124 H Total Protein 8.4 H Albumin 4.4 RPR Titer Nonreactive 06/20/18 12:00 WBC 9.4 RBC 4.71 Hgb 15.3 Hct 42.6 MCV 90.3 MCH 32.6 MCHC 36.1 H RDW 13.0 Plt Count 223 MPV 6.7 L Absolute Neuts (auto) 6.9 Neutrophils % 73.5 Lymphocytes % 14.4 D Monocytes % 10.5 H Eosinophils % 1.1 Basophils % 0.5 Nucleated RBC % 0 Sodium Potassium Chloride Carbon Dioxide Anion Gap BUN Creatinine Creat Clearance w eGFR Random Glucose Calcium Total Bilirubin AST ALT Alkaline Phosphatase Total Protein Albumin RPR Titer LABS NOTED. ELEVATED WBC LEVEL NOTED ON ADMISSION CBC. REPEAT CBC DRAWN EARLIER TODAY. RESULTS NOTED. WBC LEVEL NOW NOTED TO BE WITHIN NORMAL RANGE. PATIENT AFEBRILE. 06/20/18 17:19 Assessment: 06/20/18 17:21 WITHDRAWAL SYMPTOMS. Plan: CONTINUE DETOX. INCREASE DAILY PO FLUID INTAKE. ENCOURAGE AMBULATION.
[2018-06-20 17:57] VITALS: BP 127/82; PULSE 89; TEMP 97
--- NOTE | 2018-06-20 18:49 | PN ---
[facility] Progress Note Note: Met w/ patient who is insisting on leaving AMA. Patient is alert and oriented. Patient states does not feel treatment he is receiving is beneficial. Received Librium at 1700 hrs. Instructed to wait at least 2 hrs post administration to ensure no sedative effects. Reviewed hx and patient denies daily opiate use and declined treatment for opiate use. Pupils = 4 mm. Discussed patient alcohol use hx. Reviewed labs with patient, given a copy, and encouraged to f/u w/ HCP. Discussed risk of relapse Leaving AMA
[2018-06-20] MEDS ORDERED: chlordiazePOXIDE HCL 10 MG CAPSULE PO SCH (23:00)
[2018-06-20] MEDS ORDERED: chlordiazePOXIDE HCL 10 MG CAPSULE PO PRN (23:00)
--- NOTE | 2018-06-21 01:20 | DS ---
[facility] Detox Discharge Summary Admission Date: 06/18/18 Discharge Date: 06/20/18 - History Present History: Alcohol Dependence Additional Comments: Patient admitted with alcohol withdrawal. Pertinent Past History: Patient with hx alcohol use disorder w/ co-morbidities of pancreatitis and abnormal liver function test. Patient also w/ a hx of opiate use disorder but declined medication management . - Physical Exam Results Vital Signs: Vital Signs Temperature 97.0 F L 06/20/18 17:56 Pulse Rate 89 06/20/18 17:56 Respiratory Rate 18 06/20/18 17:56 Blood Pressure 127/82 06/20/18 17:56 O2 Sat by Pulse Oximetry (%) Pertinent Admission Physical Exam Findings: Patient with hx alcohol use disorder. Laboratory Last Values WBC 9.4 K/mm3 (4.0-10.0) 06/20/18 12:00 RBC 4.71 M/mm3 (4.00-5.60) 06/20/18 12:00 Hgb 15.3 GM/dL (11.7-16.9) 06/20/18 12:00 Hct 42.6 % (35.4-49) 06/20/18 12:00 MCV 90.3 fl (80-96) 06/20/18 12:00 MCH 32.6 pg (25.7-33.7) 06/20/18 12:00 MCHC 36.1 g/dl (32.0-35.9) H 06/20/18 12:00 RDW 13.0 % (11.9-15.9) 06/20/18 12:00 Plt Count 223 K/MM3 (134-434) 06/20/18 12:00 MPV 6.7 fl (7.5-11.1) L 06/20/18 12:00 Absolute Neuts (auto) 6.9 K/mm3 (1.5-8.0) 06/20/18 12:00 Neutrophils % 73.5 % (42.8-82.8) 06/20/18 12:00 Lymphocytes % 14.4 % (8-40) D 06/20/18 12:00 Monocytes % 10.5 % (3.8-10.2) H 06/20/18 12:00 Eosinophils % 1.1 % (0-4.5) 06/20/18 12:00 Basophils % 0.5 % (0-2.0) 06/20/18 12:00 Nucleated RBC % 0 % (0-0) 06/20/18 12:00 Sodium 130 mmol/L (136-145) L 06/19/18 07:30 Potassium 4.2 mmol/L (3.5-5.1) 06/19/18 07:30 Chloride 86 mmol/L (98-107) L 06/19/18 07:30 Carbon Dioxide 37 mmol/L (21-32) H 06/19/18 07:30 Anion Gap 7 MMOL/L (8-16) L 06/19/18 07:30 BUN 15 mg/dL (7-18) 06/19/18 07:30 Creatinine 0.9 mg/dL (0.55-1.3) 06/19/18 07:30 Creat Clearance w eGFR 100.48 (>60) 06/19/18 07:30 Random Glucose 90 mg/dL (74-106) 06/19/18 07:30 Calcium 10.0 mg/dL (8.5-10.1) 06/19/18 07:30 Total Bilirubin 1.0 mg/dL (0.2-1) 06/19/18 07:30 AST 39 U/L (15-37) H 06/19/18 07:30 ALT 46 U/L (13-61) 06/19/18 07:30 Alkaline Phosphatase 124 U/L (45-117) H 06/19/18 07:30 Total Protein 8.4 g/dl (6.4-8.2) H 06/19/18 07:30 Albumin 4.4 g/dl (3.4-5.0) 06/19/18 07:30 RPR Titer Nonreactive (NONREACTIVE) 06/19/18 07:30 Labs reviewed. - Treatment Hospital Course: Detox Protocol Followed (Patient started on Detox protocol but did not complete.), Discharged Condition Good (Alert and Oriented w/ steady gait. No signs of sedation. Patient refused Narcan Kit.) - Medication Discharge Medications: Ambulatory Orders NK [No Known Home Medication] 06/18/18 - Diagnosis (1) Alcohol dependence with uncomplicated withdrawal Status: Acute - AMA Did Patient Leave Against Medical Advice: Yes (Relapse risks discused. Patient adament on leaving. )
[2018-06-21] MEDS ORDERED: METHADONE HCL 5 MG TABLET (FOR DETOX USE ONLY) PO ONE (06:00)
[2018-06-21] MEDS ORDERED: chlordiazePOXIDE HCL 10 MG CAPSULE PO SCH (23:00)
== END 2018-06-20 19:02 | disposition left against medical advice (07) | DRG 770 ==
LOC: YASAS 15:41 → Y3N 21:41
PROVIDERS: ADMIT Surgery; ATTEND Surgery
PROC: HZ2ZZZZ Detoxification Services for Substance Abuse Treatment (ICD-10-PCS; principal; 2018-06-18)
DX: F10.230 Alcohol dependence with withdrawal, uncomplicated (principal); F10.280 Alcohol dependence with alcohol-induced anxiety disorder; F41.8 Other specified anxiety disorders; F32.9 Major depressive disorder, single episode, unspecified; K85.21 Alcohol induced acute pancreatitis with uninfected necrosis; R94.5 Abnormal results of liver function studies
CPT/HCPCS: 36415; 80053; 85025; 85027; 86593; 93005; 93010

== ENCOUNTER 2018-10-16 05:46 | Inpatient (IN) | payer OTHER ==
[2018-10-16] MEDS ORDERED: FAMOTIDINE 20 MG/50 ML IVPB 20 MG/50 ML MG IVPB ONE ×2 (06:08→06:18)
[2018-10-16] MEDS ORDERED: ONDANSETRON 4 MG/2 ML VIAL IVPUSH ONE ×2 (06:08→07:54)
[2018-10-16] MEDS ORDERED: ONDANSETRON 4 MG/2 ML VIAL ONE ×3 (06:18→16:57)
[2018-10-16 06:43] LABS: HEMATOCRIT 48.7 % (35.4-49); HEMOGLOBIN 16.6 GM/dL (11.7-16.9); MCH 31.3 pg (25.7-33.7); MCHC 34.2 g/dl (32.0-35.9); MEAN CELL VOLUME 91.5 fl (80-96); MEAN PLT VOLUME 6.6 fl (7.5-11.1); PLATELET COUNT 452 K/MM3 (134-434); RBC 5.32 M/mm3 (4.00-5.60); RDW 12.4 % (11.9-15.9); WHITE BLOOD COUNT 22.5 K/mm3 (4.0-10.0)
[2018-10-16] MEDS ORDERED: SODIUM CHLORIDE 0.9% 1000 ML INFUS.BAG IV ONE (06:57)
[2018-10-16 07:13] LABS: ALBUMIN 4.4 g/dl (3.4-5.0); ALK PHOS 108 U/L (45-117); ANION GAP 7 MMOL/L (8-16); BILIRUBIN,TOTAL 0.4 mg/dL (0.2-1); BLOOD UREA NITROGEN 12.9 mg/dL (7-18); CALCIUM 9.4 mg/dL (8.5-10.1); CHLORIDE 101 mmol/L (98-107); CO2 34 mmol/L (21-32); GLUCOSE,RANDOM 160 mg/dL (74-106); LIPASE 20289 U/L (73-393); POTASSIUM 3.7 mmol/L (3.5-5.1); SGOT/AST 38 U/L (15-37); SGPT/ALT 53 U/L (13-61); SODIUM 142 mmol/L (136-145); TOT PROT 8.7 g/dl (6.4-8.2)
[2018-10-16] MEDS ORDERED: SODIUM CHLORIDE 0.9% 500 ML INFUS.BAG IV ONE (07:35)
[2018-10-16] MEDS ORDERED: morphine CARPU-JECT 4 MG/1 ML DISP.SYRIN IVPUSH ONE (07:42)
[2018-10-16] MEDS ORDERED: morphine SULFATE 4 MG/ML VIAL ONE (07:42)
--- NOTE | 2018-10-16 07:53 | PDOC ---
History of Present Illness - General Chief Complaint: Pain Stated Complaint: ABDOMINAL PAIN & VOMITING Time Seen by Provider: 10/16/18 07:23 - History of Present Illness Initial Comments: 10/16/18 08:52 28yo M hx alcohol abuse, chronic pancreatitis, and episodes of acute pancreatitis presenting from home c/o epigastric pain xfew hours. Pain woke him up from sleep, acute onset, constant, worse with lying down, burning type, started epigastric and moved to LUQ and chest. Endorses nausea and vomiting, abdominal pain occurred before vomiting; denies hematemesis. States pain is the same as his last episode of pancreatitis when he was admitted here 03/03/17. Endorses F/C, SOB, diarrhea. Pt drinks 1 pint/day, last drink at midnight, has had withdrawal before and worried he will enter it soon. Denies IVDU, ÁLVAREZ, dizziness, trauma, head injury, back pain, neck pain, testicular pain, numbness/ tingling, weakness, blood in stool, sick contacts, travel. Past History - Past Medical History Allergies/Adverse Reactions: Allergies Allergy/AdvReac Type Severity Reaction Status Date / Time No Known Allergies Allergy Verified 06/18/18 21:42 Home Medications: Ambulatory Orders NK [No Known Home Medication] 06/18/18 Anemia: Yes (not taking any iron supplement) Asthma: No Cancer: No Cardiac Disorders: No CVA: No COPD: No CHF: No Dementia: No Diabetes: No GI Disorders: No Disorders: No HTN: No Hypercholesterolemia: No Kidney Stones: No Liver Disease: No Seizures: No Thyroid Disease: No - Surgical History Abdominal Surgery: No Appendectomy: No Cardiac Surgery: No Cholecystectomy: No Lung Surgery: No Neurologic Surgery: No Orthopedic Surgery: No - Reproductive History Testicular Surgery: No - Immunization History Td Vaccination: Yes TDAP Vaccination: Yes Immunization Up to Date: Yes - Suicide/Smoking/Psychosocial Hx Smoking History: Never smoked Have you smoked in the past 12 months: No Information on smoking cessation initiated: No 'Breaking Loose' booklet given: 07/18/15 Hx Alcohol Use: Yes Drug/Substance Use Hx: No Substance Use Type: Alcohol Hx Substance Use Treatment: Yes (detox [facility];s ) Review of Systems - Review of Systems Comments:: 10/16/18 12:27 Constitutional: Positive for chills, fever. Negative for fatigue. HENT: Negative for sore throat, rhinorrhea, congestion. Eyes: Negative for visual disturbance. Respiratory: Positive for SOB. Negative for cough, and wheezing. Cardiovascular: Positive for chest pain. Negative for palpitations, and leg swelling. Gastrointestinal: Positive for abdominal pain, nausea, vomiting, and diarrhea. Negative for blood in stool, constipation. Genitourinary: Negative for dysuria, flank pain, and hematuria. Musculoskeletal: Negative for myalgias, back pain, and neck pain. Skin: Negative for rash. Neurological: Negative for light-headedness, dizziness, syncope, weakness, numbness and headaches. Psychiatric/Behavioral: Negative for behavioral problems and confusion. *Physical Exam - Vital Signs Last Vital Signs Temp Pulse Resp BP Pulse Ox 98.6 F 85 18 122/91 100 10/16/18 06:26 10/16/18 06:26 10/16/18 06:26 10/16/18 06:26 10/16/18 06:26 - Physical Exam Comments: 10/16/18 12:30 Gen: Alert, skinny, rocking back and forth sitting up, uncomfortable-appearing. HEENT: PERRL, EOMI, MMM, NCAT. No conjunctival pallor. Sclera are non-icteric. Oropharynx is clear. CV: Regular rate and rhythm. No murmurs, rubs, or gallops. PULM: No resp distress. CTAB, no wheezes, rales, or rhonchi. ABD: diffuse TTP with guarding, soft, ND, no rebound tenderness, no CVA tenderness. BACK: No TTP of c/t/l-spine. No step-offs or deformities. MSK: No bony deformities. 2+ pulses in all extremities. NEURO: AAOx3. PERRL. No gross CN deficits. Strength and sensation grossly intact throughout. EXTREMITIES: No cyanosis. No clubbing. No edema. No calf tenderness. PSYCH: Normal mood and thought pattern. SKIN: Warm and dry. Normal capillary refill. No rashes. No jaundice. Heart Score/ECG Review - ECG Impressions Comment:: 10/16/18 08:48 NSR, 94bpm, no GARCIA/TWI, normal axis, QTc 437ms ED Treatment Course - LABORATORY CBC & Chemistry Diagram: 10/16/18 06:15 10/16/18 06:15 - ADDITIONAL ORDERS Additional order review: Laboratory Results 10/16/18 06:15 Sodium 142 Potassium 3.7 Chloride 101 Carbon Dioxide 34 H Anion Gap 7 L BUN 12.9 Creatinine 1.0 Est GFR (CKD-EPI)AfAm 117.36 Est GFR (CKD-EPI)NonAf 101.26 Random Glucose 160 H Calcium 9.4 Total Bilirubin 0.4 AST 38 H ALT 53 Alkaline Phosphatase 108 Total Protein 8.7 H Albumin 4.4 Lipase 75943 H 10/16/18 06:15 RBC 5.32 MCV 91.5 MCHC 34.2 RDW 12.4 MPV 6.6 L - Medications Given in the ED: ED Medications Discontinued Medications Generic Name Dose Route Start Last Admin Trade Name Freq PRN Reason Stop Dose Admin Famotidine/Sodium Chloride 20 mg in 50 mls @ 100 mls/hr 10/16/18 06:08 06:26 Pepcid 20 Mg Premixed Ivpb - IVPB 10/16/18 06:37 100 mls/hr ONCE ONE Administration Morphine Sulfate 4 mg 10/16/18 07:42 10/16/18 07:48 Morphine Injection - IVPUSH 10/16/18 07:43 4 mg ONCE ONE Administration Ondansetron HCl 4 mg 10/16/18 06:08 10/16/18 06:26 Zofran Injection IVPUSH 10/16/18 06:09 4 mg ONCE ONE Administration Sodium Chloride 1,000 ml 10/16/18 06:57 10/16/18 07:03 Normal Saline - IV 10/16/18 06:58 1,000 ml ONCE ONE Administration Sodium Chloride 1,000 ml 10/16/18 07:35 10/16/18 07:48 Normal Saline - IV 10/16/18 07:36 1,000 ml ONCE ONE Administration Medical Decision Making - Medical Decision Making 10/16/18 09:03 28yo M hx alcohol abuse, chronic pancreatitis, and episodes of acute pancreatitis presenting from home with epigastric pain and N/V xfew hours similar to last episode of pancreatitis. Hemodynamically stable, diffuse abdominal TTP. Most likely pancreatitis, but also consider Boerhaave's, perforation, or abscess - assess with labs, CXR, and CTAP. CP and SOB also concerning for ACS/NE, though less likely due to hx and RFs, but r/o with EKG and cardiac profile. No current s/s of alcohol withdrawal, but due to alcohol abuse, monitor and consider Librium. -1L IVF -EKG -Labs: CBC, CMP, Lipase, Cardiac profile, EtOH -CXR, CTAP w/contrast -Famotidine, Zofran, Reglan, Morphine for pain and nausea -Dispo: most likely admit pending w/u EKG reviewed - no concerning findings. Labs reviewed. Of note, WBC 22.5, PLT 452 (chronic), BUN 12.9, Cr 1.0, Glu 160, AST 38, ALT 53, Lipase 23294. Pt still in pain. Add Dilaudid. Pt is lying down comfortably now. Alcohol 101.9 Pt a bit tremulous. Add Librium 50 and a banana bag. 10/16/18 12:18 CTAP: large amount of peripancreatic fluid consistent with acute pancreatitis. No evidence of discrete abscess or pseudocyst. Additional free fluid within the RLQ and pelvis. No evidence of acute appendicitis. Pt comfortable-appearing. 10/16/18 13:45 Spoke with Quirino Bailey, who is coming down. Trop <0.02. 10/16/18 13:[address] Alfonso service. *DC/Admit/Observation/Transfer Diagnosis at time of Disposition: Pancreatitis - Discharge Dispostion Condition at time of disposition: Fair Decision to Admit order: Yes - Referrals - Patient Instructions - Post Discharge Activity
[2018-10-16] MEDS ORDERED: METOCLOPRAMIDE HCL INJECTION 10 MG/2 ML VIAL IVPUSH ONE (08:05)
[2018-10-16] MEDS ORDERED: HYDROmorphone HCL CARPU-JECT 2 MG/1 ML DISP.SYRIN IVPUSH ONE ×2 (08:07→14:43)
--- NOTE | 2018-10-16 08:18 | PDOC ---
Attending Attestation - Resident Resident Name: Kailee Guerra - ED Attending Attestation I have performed the following: I have examined & evaluated the patient, The case was reviewed & discussed with the resident, I agree w/resident's findings & plan, Exceptions are as noted - HPI HPI: 10/16/18 08:41 28y M chronic alcoholic, hx of pancreatitis presents with several weeks of nonradiating epigastric abd pain that worsened last night around 4am associated nausea and nonbloody non coffee ground emesis. Pt endorses bpr/melena. denies cp , sob. Pt notes he drinks approx 1 pt of vodka daily, last drink around midnight. - Physicial Exam PE: 10/16/18 08:42 GENERAL: The patient is awake, alert, and fully oriented, uncomfortable appearing HEAD: Normocephalic, atraumatic. EYES: extraocular movements intact, sclera anicteric, conjunctiva clear. ENT: Normal voice, Moist mucous membranes. NECK: Normal range of motion, supple LUNGS: Breath sounds equal, clear to auscultation bilaterally. No wheezes, no rhonchi, no rales. HEART: Regular rate and rhythm, normal S1 and S2 without murmur, rub or gallop. ABDOMEN: diffusely tender abd, without rebound/guarding, soft EXTREMITIES: Normal range of motion, no edema. NEUROLOGICAL: No facial assymetry, Normal speech, PSYCH: Normal mood, normal affect. SKIN: Warm, Dry, normal turgor, - Medical Decision Making 10/16/18 08:43 ifferential includes possible gastritis versus pancreatitis the patient's blood work returned noted for significantly elevated lipase consistent with pancreatitis as the patient is diffusely tender will obtain a CT of his abdomen, plan for fluid resuscitation, morphine for pain anticipate admission 10/16/18 12:34 ct cw pancreatitis w/o abscess or pseudocyst will admit for furhter management Heart Score/ECG Review - ECG Impressions Comment:: 10/16/18 08:43 Twelve-lead EKG was performed and reviewed by me. There is normal sinus rhythm with a normal rate. rate of 94 The axis is normal. The intervals are normal. There is normal R wave progression There are no ST or T wave abnormalities. Impression: Normal twelve-lead EKG
[2018-10-16] MEDS ORDERED: HYDROmorphone HCl 2 MG/ML VIAL ONE ×3 (08:19→20:36)
[2018-10-16] MEDS ORDERED: METOCLOPRAMIDE HCL INJECTION 10 MG/2 ML VIAL ONE (08:46)
[2018-10-16] MEDS ORDERED: chlordiazePOXIDE HCL 25 MG CAPSULE PO ONE (09:12)
[2018-10-16] MEDS ORDERED: FOLIC ACID INJECTION - 1 MG, THIAMINE HCL 100 MG, MULTIVIT INJECTION ADULT 10 ML in SOD... IVPB ONE (09:12)
[2018-10-16] MEDS ORDERED: chlordiazePOXIDE HCL 25 MG CAPSULE ONE (10:08)
[2018-10-16] MEDS ORDERED: ONDANSETRON 4 MG/2 ML VIAL IVPB PRN ×2 (14:01→14:02)
[2018-10-16] MEDS ORDERED: SODIUM CHLORIDE 1,000 ML IV SCH (14:15)
--- NOTE | 2018-10-16 15:17 | EKG ---
Test Reason : Blood Pressure : / mmHG Vent. Rate : 094 BPM Atrial Rate : 094 BPM P-R Int : 136 ms QRS Dur : 104 ms QT Int : 350 ms P-R-T Axes : 077 069 064 degrees QTc Int : 437 ms POOR DATA QUALITY, INTERPRETATION MAY BE ADVERSELY AFFECTED NORMAL SINUS RHYTHM NORMAL ECG WHEN COMPARED WITH ECG OF 18-JUN-2018 22:18, NO SIGNIFICANT CHANGE WAS FOUND Confirmed by LAXMI TRUJILLO, JOSE ALEJANDRO ([id number]) on 10/16/2018 3:17:07 PM Referred By: Confirmed By:JOSE ALEJANDRO HAIR MD
[2018-10-16] MEDS ORDERED: HYDROmorphone HCL CARPU-JECT 2 MG/1 ML DISP.SYRIN IVPUSH PRN (16:36)
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
[2018-10-16] MEDS: LACTATED RINGERS SOLUTION 1,000 ML/1,000 ML INFUS.BAG IV SCH ×2 (16:55→21:54)
[2018-10-16] MEDS ORDERED: KETOROLAC TROMETHAMINE 15 MG/ML VIAL ONE (16:57)
--- NOTE | 2018-10-16 16:57 | HP ---
Admitting History and Physical - Primary Care Physician PCP: Amado Alfonso - Admission Chief Complaint: Epigastric pain History of Present Illness: Patient is a 28 y/o male with past medical history of ETOH abuse and pancreatitis in 03/2015. Patient states he woke up this morning at 430am with complaints of burning epigastric pain accompanied with nausea and vomiting. Patient states throughout the day experiencing 8 episodes of non-bloody yellow vomitus. He states that for the past 3 days he had non-bloody diarrhea. Patient has chronic history of ETOH abuse. He states he drinks 1 pint of vodka a day for the past 7 years. He has attempted rehab in the past. In ER noted with elevated by 142/119. 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 History of Recent Travel: No Home Medications - Allergies Allergies/Adverse Reactions: Allergies Allergy/AdvReac Type Severity Reaction Status Date / Time No Known Allergies Allergy Verified 06/18/18 21:42 - Home Medications Home Medications: Ambulatory Orders NK [No Known Home Medication] 06/18/18 Family Disease History - Family Disease History Family Disease History: Diabetes: Mother Review of Systems - Review of Systems Constitutional: reports: Loss of Appetite, Weakness Eyes: reports: No Symptoms HENT: reports: No Symptoms Neck: reports: No Symptoms Cardiovascular: reports: No Symptoms Respiratory: reports: SOB Gastrointestinal: reports: Abdominal Pain, Diarrhea, Nausea, Vomiting Genitourinary: reports: No Symptoms Breasts: reports: No Symptoms Reported Musculoskeletal: reports: No Symptoms Integumentary: reports: No Symptoms Neurological: reports: No Symptoms Endocrine: reports: No Symptoms Hematology/Lymphatic: reports: No Symptoms Psychiatric: reports: No Symptoms Physical Examination Vital Signs: Vital Signs Temperature 98.6 F 10/16/18 06:26 Pulse Rate 88 10/16/18 09:03 Respiratory Rate 18 10/16/18 06:26 Blood Pressure 155/101 H 10/16/18 09:03 O2 Sat by Pulse Oximetry (%) 99 10/16/18 09:03 Constitutional: Yes: No Distress, Calm Eyes: Yes: Conjunctiva Clear HENT: Yes: Atraumatic Neck: Yes: Supple Cardiovascular: Yes: Regular Rate and Rhythm Respiratory: Yes: Regular, CTA Bilaterally Gastrointestinal: Yes: Soft, Hypoactive Bowel Sounds, Tenderness (diffuse) Musculoskeletal: Yes: WNL Extremities: Yes: WNL Edema: No Neurological: Yes: Alert, Oriented Psychiatric: Yes: Alert, Oriented Labs: CBC, BMP 10/16/18 06:15 10/16/18 06:15 Imaging - Results Cat Scan: Report Reviewed Problem List - Problems (1) Pancreatitis Assessment/Plan: -GI consult -IV hydration -NPO -pain control -CT scan shows large amount of peripancreatic fluid consistent with acute pancreatitis, no evidence of abscess or pseudocyst, additional free fluid in RLQ and pelvis -ICU consult -lipase 20,289 -if abdominal pain does not subside in 48hrs repeat CT scan Code(s): K85.90 - ACUTE PANCREATITIS WITHOUT NECROSIS OR INFECTION, UNSP (2) Alcohol dependence with uncomplicated withdrawal Assessment/Plan: -Detox and Psych consult placed -Thiamine, MVI, Folic Acid--when resume PO intake -Librium protocol when resume PO intake -Ativan 1mg IVP q8h for anxiety -Etoh level 101.9 -fall precaution Code(s): F10.230 - ALCOHOL DEPENDENCE WITH WITHDRAWAL, UNCOMPLICATED
[2018-10-16] MEDS: KETOROLAC TROMETHAMINE 15 MG/ML VIAL IVPUSH PRN ×2 (17:03→22:59)
--- NOTE | 2018-10-16 17:45 | PN ---
Progress Note (short form) - Note Progress Note: 28 yo man admitted with acute abdominal pain and vomiting +etoh use asked to evaluate leukocytosis imp/reccd leukocytosis secondary to acute pancreatic inflammation-no fever, no signs infection, ct scan c/w acute pancreatitis, no necrosis/abscess etoh induced acute pancreatitis etoh use- monitor for withdrawal agressive fluid and pain management no need for antibiotics at this time Problem List - Problems (1) Leukocytosis Code(s): D72.829 - ELEVATED WHITE BLOOD CELL COUNT, UNSPECIFIED (2) Alcohol-induced pancreatitis Code(s): K85.20 - ALCOHOL INDUCED ACUTE PANCREATITIS WITHOUT NECROSIS OR INFCT Qualifiers: Chronicity: acute Acute pancreatitis complication: unspecified Qualified Code(s): K85.20 - Alcohol induced acute pancreatitis without necrosis or infection
[2018-10-16] MEDS ORDERED: LORazepam 2 MG/ML SDV VIAL IVPUSH PRN (18:29)
--- NOTE | 2018-10-16 18:45 | CONS ---
DATE OF CONSULTATION: 10/16/2018 REQUESTED BY: Amado Alfonso MD This is a 28-year-old man who woke up at 4 a.m. this morning with acute abdominal pain. He has a past history of pancreatitis. He noted severe mid-epigastric pain with nausea and vomiting. He reports that he vomited 8 times, non-bloody, non-bilious vomitus. He has a history of chronic alcohol use. He states that he was admitted to [facility] in March 2017 with pancreatitis. He states that after this, he abstained from alcohol use for 1-1/2 years. He started drinking again six months ago. He drinks 1-1/2 pints of vodka daily. He smokes marijuana. He has no history of IV drug use. PAST MEDICAL HISTORY: Notable for a past history of pancreatitis and alcohol use. PAST SURGICAL HISTORY: None. FAMILY HISTORY: Notable for diabetes in his mother. Several family members have cancer; he does not know what type. 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 As stated above, no history of IV drug use. REVIEW OF SYSTEMS: He denies any shortness of breath, fevers or chills. He notes severe mid-epigastric pain. He reports he has had some non-bloody diarrhea. He denies any dysuria or trouble urinating. PHYSICAL EXAMINATION: GENERAL: He is awake and alert. He is a thin young man in no acute distress. VITALS: Temperature is 98.6, pulse is 70, blood pressure 157/90, respiratory rate 17, oxygen saturation 98% on room air. HEENT: Normocephalic. Eyes are anicteric. He has no thrush. NECK: Supple. LUNGS: Clear to auscultation. HEART: Regular rate and rhythm. ABDOMEN: Firm. He has diminished bowel sounds. He has diffuse mid-epigastric tenderness to palpation. He has no lower abdominal pain on palpation. He has no abdominal distention. He has hypoactive bowel sounds. EXTREMITIES: No leg edema. NEUROLOGIC: He is oriented x3. He follows commands. LABS: Notable for a white count of 22.5, hemoglobin of 16.6, platelets of 452,000. His BUN 12, creatinine is 1, glucose of 160. His LFTs are normal. AST is 38. ALT is 53. Alkaline phosphatase is 108. His calcium is 9.4. His lipase is 20,289. His alcohol level is 101. He is receiving IV fluids and pain medication. IN SUMMARY: This is a 28-year-old man with acute pancreatitis secondary to alcohol. I suspect he has leukocytosis on the basis of his acute pancreatitis. Would continue aggressive IV fluids and pain management. Would follow his labs closely. A detox evaluation has been requested for possible alcohol withdrawal. Further recommendations to follow. Jennifer [id number]
--- NOTE | 2018-10-16 18:52 | CONSULT ---
Consultation: REQUESTING PROVIDER: RAHAT Bailey CONSULT REQUEST: We have been asked to medically evaluate this patient for ICU for acute pancreatitis HISTORY OF PRESENT ILLNESS: Pt. is a 28 y.o. M w/ PMHx. of Etoh abuse and Necrotizing Pancreatitis (2 week hospital course) in 03/17 presents to the ICU with acute pancreatitis. Pt. state that it is because of the alcohol and endorses that the last episode of pancreatitis was for the same. Pt. states that his last drink was midnight and that the pain began at 4:30 AM. Pt. states that over the last few days he has been trying to cut back on alcohol and went for 26 hours x 2 without alcohol interspersed with drinking 1.5 pints of vodka. Pt. endorses having withdrawal in the past and treated here but denies ever having seizures. Pt. endorses nausea and vomiting that stopped once received Zofran in the ED. Pt. endorses 2 days of loose stools (around two per day). Pt. endorses a burning chest pain that preceded the abdominal pain. Pt. endorse vomiting blood in the past (unsure when) but denies ever having an EGD. Pt. denies any blood in the in emesis or stool. Pt. denies any headache, hematuria, hematochezia, melena, paresthesias, hallucinations, agitation, current shortness of breath (resolved once received pain medication), fever or chills. REVIEW OF SYSTEMS: As above. PHYSICAL EXAMINATION Vital Signs - 24 hr 10/16/18 10/16/18 10/16/18 06:26 09:03 17:05 Temperature 98.6 F Pulse Rate 85 Pulse Rate [ 88 70 Right Radial] Respiratory 18 17 Rate Blood Pressure 122/91 Blood Pressure 155/101 H 157/90 [Left Arm] O2 Sat by Pulse 100 99 98 Oximetry (%) GENERAL: Awake, alert, and fully oriented, in moderate distress. HEAD: Normal with no signs of trauma. EYES: Extraocular movements intact, sclera anicteric, conjunctiva clear. EARS, NOSE, THROAT: Ears normal, nares patent, oropharynx clear without exudates. Moist mucous membranes. NECK: Normal range of motion, supple without lymphadenopathy, JVD, or masses. LUNGS: Breath sounds equal, clear to auscultation bilaterally. No wheezes, and no crackles. No accessory muscle use. HEART: Regular rate and rhythm, normal S1 and S2 without murmur, rub or gallop. ABDOMEN: Soft, Exquisite diffuse tenderness to palpation, not distended, normoactive bowel sounds, guarding on the slightest touch MUSCULOSKELETAL: Normal range of motion at all joints. No bony deformities or tenderness. UPPER EXTREMITIES: 2+ radial pulses, warm, well-perfused. No cyanosis. No clubbing. No peripheral edema. LOWER EXTREMITIES: 2+ dorsal pedal pulses, warm, well-perfused. No calf tenderness. No peripheral edema. Cat scratches on lower extremities NEUROLOGICAL: Normal speech. No focal deficits appreciated PSYCHIATRIC: Cooperative. Good eye contact. Appropriate mood and affect. SKIN: Warm, dry, normal turgor, no rashes or lesions noted. Laboratory Results - last 24 hr 10/16/18 10/16/18 06:15 06:15 WBC 22.5 H RBC 5.32 Hgb 16.6 Hct 48.7 MCV 91.5 MCH 31.3 MCHC 34.2 RDW 12.4 Plt Count 452 H D MPV 6.6 L Sodium 142 Potassium 3.7 Chloride 101 Carbon Dioxide 34 H Anion Gap 7 L BUN 12.9 Creatinine 1.0 Est GFR (CKD-EPI)AfAm 117.36 Est GFR (CKD-EPI)NonAf 101.26 Random Glucose 160 H Calcium 9.4 Total Bilirubin 0.4 AST 38 H ALT 53 Alkaline Phosphatase 108 Creatine Kinase 43 Troponin I < 0.02 Total Protein 8.7 H Albumin 4.4 Lipase 39544 H Alcohol, Quantitative 101.9 H Active Medications Current Medications Heparin Sodium (Porcine) (Heparin -) 5,000 unit SQ BID [facility] Hydromorphone HCl (Dilaudid Injection -) 2 mg IVPUSH Q6H PRN PRN Reason: PAIN LEVEL 7 - 10 Lactated Ringer's (Lactated Ringers Solution) 1,000 ml in 1,000 mls @ 200 mls/ hr IV ASDIR ZACHERY Last Admin: 10/16/18 16:55 Dose: 200 mls/hr Ketorolac Tromethamine (Toradol Injection -) 15 mg IVPUSH Q6H PRN PRN Reason: PAIN LEVEL 6-10 Stop: 10/21/18 14:01 Last Admin: 10/16/18 17:03 Dose: 15 mg Lorazepam (Ativan Injection -) 1 mg IVPUSH TID PRN PRN Reason: ANXIETY Ondansetron HCl (Zofran Injection) 4 mg IVPB Q6H PRN PRN Reason: NAUSEA AND/OR VOMITING Last Admin: 10/16/18 17:03 Dose: 4 mg ASSESSMENT/PLAN: Pt. is a 28 y.o. M w/ PMHx. of Etoh abuse and Necrotizing Pancreatitis in 03/17 presents to the ICU with acute pancreatitis. Gastroenterology #Acute Alcoholic Pancreatitis CT Scan showed large area of peripancreatic fluid, no abcesses, psuedocysts, free air or appendicitis, no signs of cholelithiasis If abdominal pain has not improved or if worsens in the next 24-48 hours, will obtain repeat CT of the abdomen given history of necrotizing pancreatitis in the past. Lipase: ; f/u AM Lipase ALT mildly elevated to 53, other LFTs wnl f/u AM CMP, CRP and Triglyceride levels Aggressive IVF, s/p 3L in ED Dilaudid 2mg Q6H; Toradol 15mg Q6H; Zofran 4mg Q6H for nausea EtOH: 101.9 CIWA: 5 (though may have components of overlap with pancreatitis) will c/w Ativan 1mg TID and have low threshold for starting Librium protocol. Thiamine and Folic Acid Daily BISAP score of 0, Venkatesh's Score [address] Alvarez appreciated Consult to Dr. Graves appreciated --> Elevated WBC likely reactive. No other evidence for infection at this time. #suspicion for GERD will start Protonix 40mg IV Daily will start Famotidine BID as Pt. complaining of recurring burning epigastric pain will discuss in AM possible EGD as inpatient or for outpatient f/u and concomittant assessment for varices Cardiology Trop Neg. x 2 EKG: NSR, no ST segment changes, QTc: 437 Pulmonology CXR: no acute pathology FEN LR @ 200 monitor electrolytes and replete as needed NPO (Pt. states he is hungry right now) DVT Ppx. Hep SQ BID Dispo: We will continue to follow the patient as Pt. had Necrotizing Pancreatitis during last episode of pancreatitis. Thank you for this consultative opportunity. ATTENDING PHYSICIAN STATEMENT I saw and evaluated the patient. I reviewed the resident's note and discussed the case with the resident. I agree with the resident's findings and plan as documented. SUBJECTIVE: OBJECTIVE: ASSESSMENT AND PLAN:
[2018-10-16] MEDS ORDERED: PANTOPRAZOLE SODIUM 40 MG VIAL ONE (20:11)
[2018-10-16] MEDS: PANTOPRAZOLE SODIUM 40 MG VIAL IVPUSH SCH (20:19)
[2018-10-16 20:34] LABS: LDH 262 U/L (87-246)
[2018-10-16] MEDS: HEPARIN NA (PORCINE) 5,000 UNITS/ML 1ML VIAL SQ SCH (23:01)
[2018-10-17] MEDS: KETOROLAC TROMETHAMINE 15 MG/ML VIAL IVPUSH PRN ×3 (03:29→20:24)
[2018-10-17 06:39] LABS: BASO % 0.3 % (0-2.0); EOS % 0.2 % (0-4.5); HEMATOCRIT 37.7 % (35.4-49); HEMOGLOBIN 12.9 GM/dL (11.7-16.9); LYMPH % 12.2 % (8-40); MCH 31.5 pg (25.7-33.7); MCHC 34.2 g/dl (32.0-35.9); MEAN CELL VOLUME 92.2 fl (80-96); MEAN PLT VOLUME 6.9 fl (7.5-11.1); MONO % 6.7 % (3.8-10.2); NEUT % 80.6 % (42.8-82.8); PLATELET COUNT 295 K/MM3 (134-434); RBC 4.09 M/mm3 (4.00-5.60); RDW 12.3 % (11.9-15.9); WHITE BLOOD COUNT 14.9 K/mm3 (4.0-10.0)
[2018-10-17] MEDS: HYDROmorphone HCl 2 MG/ML VIAL IVPUSH PRN ×3 (06:54→21:30)
[2018-10-17 07:17] LABS: ALBUMIN 3.1 g/dl (3.4-5.0); ALK PHOS 68 U/L (45-117); AMYLASE > 1300 U/L (25-115); ANION GAP 4 MMOL/L (8-16); BILIRUBIN,TOTAL 0.7 mg/dL (0.2-1); BLOOD UREA NITROGEN 7.3 mg/dL (7-18); CALCIUM 8.6 mg/dL (8.5-10.1); CHLORIDE 99 mmol/L (98-107); CO2 33 mmol/L (21-32); CREATININE 0.7 mg/dL (0.55-1.3); GLUCOSE,RANDOM 81 mg/dL (74-106); LIPASE 13303 U/L (73-393); SGOT/AST 17 U/L (15-37); SGPT/ALT 28 U/L (13-61); SODIUM 137 mmol/L (136-145); TOT PROT 5.9 g/dl (6.4-8.2)
--- NOTE | 2018-10-17 09:54 | PN ---
Progress Note, Physician Chief Complaint: Acute Pancreatits ETOH Abuse History of Present Illness: Previous notes and events reviewed awake and alert NAD patient states pain is still present but improved from yesterday afebrile lipase and wbc showing down trend CRP elevated mild tremors noted - Current Medication List Current Medications: Active Medications Folic Acid (Folic Acid Injection -) 0.4 mg SQ DAILY [facility] Heparin Sodium (Porcine) (Heparin -) 5,000 unit SQ BID [facility] Last Admin: 10/16/18 23:01 Dose: 5,000 unit Hydromorphone HCl (Dilaudid Vial -) 2 mg IVPUSH Q6H PRN PRN Reason: PAIN LEVEL 7 - 10 Last Admin: 10/17/18 06:54 Dose: 2 mg Lactated Ringer's (Lactated Ringers Solution) 1,000 ml in 1,000 mls @ 200 mls/ hr IV ASDIR [facility] Last Admin: 10/16/18 21:54 Dose: 200 mls/hr Famotidine/Sodium Chloride (Pepcid 20 Mg Premixed Ivpb -) 20 mg in 50 mls @ 100 mls/hr IVPB BID [facility] Ketorolac Tromethamine (Toradol Injection -) 15 mg IVPUSH Q6H PRN PRN Reason: PAIN LEVEL 6-10 Stop: 10/21/18 14:01 Last Admin: 10/17/18 03:29 Dose: 15 mg Lorazepam (Ativan Injection -) 1 mg IVPUSH TID PRN PRN Reason: ANXIETY Last Admin: 10/17/18 03:29 Dose: 1 mg Ondansetron HCl (Zofran Injection) 4 mg IVPB Q6H PRN PRN Reason: NAUSEA AND/OR VOMITING Last Admin: 10/16/18 17:03 Dose: 4 mg Pantoprazole Sodium (Protonix Iv) 40 mg IVPUSH DAILY [facility] Last Admin: 10/16/18 20:19 Dose: 40 mg Thiamine HCl (Vitamin B1 Injection -) 200 mg IVPB DAILY [facility] - Objective Vital Signs: Vital Signs Temperature 97.2 F L 10/17/18 07:07 Pulse Rate 58 L 10/17/18 07:07 Respiratory Rate 22 H 10/17/18 07:07 Blood Pressure 150/92 10/17/18 02:00 O2 Sat by Pulse Oximetry (%) 98 10/16/18 23:16 Constitutional: Yes: No Distress, Calm Eyes: Yes: Conjunctiva Clear HENT: Yes: Atraumatic Cardiovascular: Yes: Regular Rate and Rhythm Respiratory: Yes: Regular, CTA Bilaterally Gastrointestinal: Yes: Soft, Hypoactive Bowel Sounds, Tenderness (diffuse), Tenderness, Epigastrium Musculoskeletal: Yes: WNL Extremities: Yes: WNL Edema: No Neurological: Yes: Alert, Oriented, Tremors (mild b/l hands) Psychiatric: Yes: Alert, Oriented Labs: CBC, BMP 10/17/18 05:30 10/17/18 05:30 Problem List - Problems (1) Pancreatitis Assessment/Plan: -GI on board -IV hydration -NPO -pain control -CT scan shows large amount of peripancreatic fluid consistent with acute pancreatitis, no evidence of abscess or pseudocyst, additional free fluid in RLQ and pelvis -lipase 13,303, amylase >1300 -CRP 6.0, TG nl -wbc 14.9 -if abdominal pain does not subside in 48hrs repeat CT scan Code(s): K85.90 - ACUTE PANCREATITIS WITHOUT NECROSIS OR INFECTION, UNSP (2) Alcohol dependence with uncomplicated withdrawal Assessment/Plan: -Detox and Psych consult placed -Thiamine, MVI, Folic Acid--when resume PO intake -Librium protocol when resume PO intake -Ativan 1mg IVP q8h for anxiety -Etoh level 101.9 -fall precaution Code(s): F10.230 - ALCOHOL DEPENDENCE WITH WITHDRAWAL, UNCOMPLICATED Assessment/Plan see problem list dvt ppx
[2018-10-17] MEDS ORDERED: PANTOPRAZOLE 40 MG TABLET (FP) PO SCH (10:00)
[2018-10-17] MEDS ORDERED: THIAMINE HCL 200 MG/2 ML VIAL IVPB SCH (10:00)
[2018-10-17] MEDS ORDERED: FOLIC ACID 5 MG/1 ML SQ SCH (10:00)
[2018-10-17] MEDS ORDERED: FAMOTIDINE 20 MG/50 ML IVPB 20 MG/50 ML MG IVPB SCH (10:00)
--- NOTE | 2018-10-17 10:43 | PN ---
Progress Note (short form) - Note Progress Note: no more vomiting abdominal pain unchanged looks more comfortable Vital Signs Period Temp Pulse Resp BP Sys/Goel Pulse Ox Last 24 Hr 97.2 F-98.2 F 58-91 12-22 127-157/77-92 98-98 cor-rrr lungs clear abd no distention diffusely tender to palpation ext no edema CBC, BMP 10/17/18 05:30 10/17/18 05:30 Current Medications Folic Acid (Folic Acid Injection -) 0.4 mg SQ DAILY [facility] Heparin Sodium (Porcine) (Heparin -) 5,000 unit SQ BID [facility] Last Admin: 10/16/18 23:01 Dose: 5,000 unit Hydromorphone HCl (Dilaudid Vial -) 2 mg IVPUSH Q6H PRN PRN Reason: PAIN LEVEL 7 - 10 Last Admin: 10/17/18 06:54 Dose: 2 mg Lactated Ringer's (Lactated Ringers Solution) 1,000 ml in 1,000 mls @ 200 mls/ hr IV ASDIR [facility] Last Admin: 10/16/18 21:54 Dose: 200 mls/hr Famotidine/Sodium Chloride (Pepcid 20 Mg Premixed Ivpb -) 20 mg in 50 mls @ 100 mls/hr IVPB BID [facility] Ketorolac Tromethamine (Toradol Injection -) 15 mg IVPUSH Q6H PRN PRN Reason: PAIN LEVEL 6-10 Stop: 10/21/18 14:01 Last Admin: 10/17/18 03:29 Dose: 15 mg Lorazepam (Ativan Injection -) 1 mg IVPUSH TID PRN PRN Reason: ANXIETY Last Admin: 10/17/18 03:29 Dose: 1 mg Ondansetron HCl (Zofran Injection) 4 mg IVPB Q6H PRN PRN Reason: NAUSEA AND/OR VOMITING Last Admin: 10/16/18 17:03 Dose: 4 mg Pantoprazole Sodium (Protonix Iv) 40 mg IVPUSH DAILY [facility] Last Admin: 10/16/18 20:19 Dose: 40 mg Thiamine HCl (Vitamin B1 Injection -) 200 mg IVPB DAILY [facility] imp/reccd leukocytosis secondary to acute pancreatic inflammation-no fever, no signs infection, ct scan c/w acute pancreatitis, no necrosis/abscess improved etoh induced acute pancreatitis etoh use- monitor for withdrawal agressive fluid and pain management no need for antibiotics at this time please encourage incentive spirometry will sign off please call back if needed Problem List - Problems (1) Leukocytosis Code(s): D72.829 - ELEVATED WHITE BLOOD CELL COUNT, UNSPECIFIED (2) Alcohol-induced pancreatitis Code(s): K85.20 - ALCOHOL INDUCED ACUTE PANCREATITIS WITHOUT NECROSIS OR INFCT Qualifiers: Chronicity: acute Acute pancreatitis complication: unspecified Qualified Code(s): K85.20 - Alcohol induced acute pancreatitis without necrosis or infection
[2018-10-17] MEDS ORDERED: DEXTROSE 5%-LACTATED RINGERS 1,000 ML IV SCH (11:00)
[2018-10-17] MEDS ORDERED: PT OWN MED DRAWER 7, Y5N ONE (11:01)
[2018-10-17] MEDS: HEPARIN NA (PORCINE) 5,000 UNITS/ML 1ML VIAL SQ SCH ×2 (11:07→22:02)
[2018-10-17] MEDS: PANTOPRAZOLE SODIUM 40 MG VIAL IVPUSH SCH (11:08)
--- NOTE | 2018-10-17 11:28 | PN ---
Teaching Attending Note Name of Resident: Tushar Navarro ATTENDING PHYSICIAN STATEMENT I saw and evaluated the patient. I reviewed the resident's note and discussed the case with the resident. I agree with the resident's findings and plan as documented. SUBJECTIVE: Patient seen and examined in the ICU. Sleepy but easily arousable. No CP or SOB. (+) abdominal pain. Intake & Output 10/14/18 10/15/18 10/16/18 10/17/18 23:59 23:59 23:59 23:59 Intake Total 200 1400 Output Total 1200 Balance 200 200 Weight 120 lb Last Vital Signs Temp Pulse Resp BP Pulse Ox 97.2 F L 71 22 H 152/94 98 10/17/18 07:07 10/17/18 10:00 10/17/18 10:00 10/17/18 10:00 10/17/18 09:00 Active Medications Folic Acid (Folic Acid Injection -) 0.4 mg SQ DAILY [facility] Heparin Sodium (Porcine) (Heparin -) 5,000 unit SQ BID [facility] Last Admin: 10/17/18 11:07 Dose: 5,000 unit Hydromorphone HCl (Dilaudid Vial -) 2 mg IVPUSH Q6H PRN PRN Reason: PAIN LEVEL 7 - 10 Last Admin: 10/17/18 06:54 Dose: 2 mg Famotidine/Sodium Chloride (Pepcid 20 Mg Premixed Ivpb -) 20 mg in 50 mls @ 100 mls/hr IVPB BID [facility] Last Admin: 10/17/18 11:08 Dose: 100 mls/hr Dextrose/Lactated Ringer's (D5-Lr -) 1,000 mls @ 200 mls/hr IV ASDIR [facility] Ketorolac Tromethamine (Toradol Injection -) 15 mg IVPUSH Q6H PRN PRN Reason: PAIN LEVEL 6-10 Stop: 10/21/18 14:01 Last Admin: 10/17/18 11:11 Dose: 15 mg Lorazepam (Ativan Injection -) 1 mg IVPUSH TID PRN PRN Reason: ANXIETY Last Admin: 10/17/18 03:29 Dose: 1 mg Ondansetron HCl (Zofran Injection) 4 mg IVPB Q6H PRN PRN Reason: NAUSEA AND/OR VOMITING Last Admin: 10/16/18 17:03 Dose: 4 mg Pantoprazole Sodium (Protonix Iv) 40 mg IVPUSH DAILY [facility] Last Admin: 10/17/18 11:08 Dose: 40 mg Thiamine HCl (Vitamin B1 Injection -) 200 mg IVPB DAILY [facility] GENERAL: Awake, alert, and oriented, uncomfortable due to pain HEAD: Normal with no signs of trauma. EYES: sclera anicteric, conjunctiva clear. EARS, NOSE, THROAT: Ears normal, nares patent, oropharynx clear without exudates. Moist mucous membranes. NECK: Normal range of motion, supple without lymphadenopathy, JVD, or masses. LUNGS: Breath sounds equal, clear to auscultation bilaterally. No wheezes, and no crackles. No accessory muscle use. HEART: Regular rate and rhythm, normal S1 and S2 without murmur, rub or gallop. ABDOMEN: Soft, (+) diffuse tenderness to palpation, not distended, (+) bowel sounds MUSCULOSKELETAL: Normal range of motion at all joints. No bony deformities or tenderness. UPPER EXTREMITIES: 2+ radial pulses, warm, well-perfused. No cyanosis. No clubbing. No peripheral edema. LOWER EXTREMITIES: 2+ dorsal pedal pulses, warm, well-perfused. No calf tenderness. No peripheral edema. Cat scratches on lower extremities NEUROLOGICAL: Non-focal PSYCHIATRIC: Cooperative. SKIN: Warm, dry, normal turgor, no rashes or lesions noted. ASSESSMENT/PLAN: Acute Pancreatitis No evidence of necrotizing pancreatitis on imaging Chronic ETOH abuse GERD IVF: D5LR Pain control O2 as needed VTE prophylaxis Monitor for withdrawal: BZ PRN Replete electrolytes Addiction evaluation PO cleared by GI Floor Dr Davis
--- NOTE | 2018-10-17 11:43 | PN ---
Physical Exam: SUBJECTIVE: Patient seen and examined at the bedside. Patient in significant pain in the epigastric region and has tenderness across his abdomen. Stated that he is no longer nauseous and has not vomited since presenting in the ED. Stated he has back pain. Denied fever, chills, cp, sob, weakness, numbness, tingling, bloody bowel movement, hematuria, dysuria. OBJECTIVE: Vital Signs Period Temp Pulse Resp BP Sys/Goel Pulse Ox Last 24 Hr 97.2 F-98.2 F 58-91 12-22 127-157/77-94 98-98 GENERAL: The patient is awake, alert, and fully oriented, in no moderate distress. HEAD: Normal with no signs of trauma. EYES: PERRL, extraocular movements intact, sclera anicteric, conjunctiva clear. No ptosis. NECK: Trachea midline, full range of motion, supple. LUNGS: Breath sounds equal, clear to auscultation bilaterally, no wheezes, no crackles. HEART: Regular rate and rhythm, S1, S2 without murmur, rub or gallop. ABDOMEN: Decreased bowel sounds, tender abdomen diffusely greater in the epigastric region, guarding. No rebound tenderness. EXTREMITIES: 2+ pulses, warm, well-perfused, no edema. NEUROLOGICAL: Cranial nerves II through XII grossly intact. Normal speech. PSYCH: Normal mood, normal affect. SKIN: Warm, dry, normal turgor, no rashes or lesions noted. Laboratory Results - last 24 hr 10/16/18 10/16/18 10/17/18 06:15 18:55 05:30 WBC 14.9 H RBC 4.09 Hgb 12.9 Hct 37.7 D MCV 92.2 MCH 31.5 MCHC 34.2 RDW 12.3 Plt Count 295 D MPV 6.9 L Absolute Neuts (auto) 12.0 H Neutrophils % 80.6 Lymphocytes % 12.2 Monocytes % 6.7 Eosinophils % 0.2 D Basophils % 0.3 Nucleated RBC % 0 Sodium 142 Potassium 3.7 Chloride 101 Carbon Dioxide 34 H Anion Gap 7 L BUN 12.9 Creatinine 1.0 Est GFR (CKD-EPI)AfAm 117.36 Est GFR (CKD-EPI)NonAf 101.26 Random Glucose 160 H Calcium 9.4 Phosphorus Magnesium Total Bilirubin 0.4 AST 38 H ALT 53 Alkaline Phosphatase 108 LD Total 262 H Creatine Kinase 43 36 Troponin I < 0.02 < 0.02 C-Reactive Protein Total Protein 8.7 H Albumin 4.4 Triglycerides Total Amylase Lipase 93266 H TSH Alcohol, Quantitative 101.9 H 10/17/18 10/17/18 05:30 05:30 WBC RBC Hgb Hct MCV MCH MCHC RDW Plt Count MPV Absolute Neuts (auto) Neutrophils % Lymphocytes % Monocytes % Eosinophils % Basophils % Nucleated RBC % Sodium 137 Potassium 4.0 Chloride 99 Carbon Dioxide 33 H Anion Gap 4 L BUN 7.3 Creatinine 0.7 Est GFR (CKD-EPI)AfAm 147.81 Est GFR (CKD-EPI)NonAf 127.53 Random Glucose 81 Calcium 8.6 Phosphorus 3.0 Magnesium 2.0 Total Bilirubin 0.7 AST 17 ALT 28 Alkaline Phosphatase 68 LD Total Creatine Kinase Troponin I C-Reactive Protein 6.0 H Total Protein 5.9 L Albumin 3.1 L Triglycerides 53 Total Amylase > 1300 H Lipase 70178 H TSH 0.87 Alcohol, Quantitative CBC, BMP 10/17/18 05:30 10/17/18 05:30 CBC,CMP WBC 14.9 K/mm3 (4.0-10.0) H 10/17/18 05:30 RBC 4.09 M/mm3 (4.00-5.60) 10/17/18 05:30 Hgb 12.9 GM/dL (11.7-16.9) 10/17/18 05:30 Hct 37.7 % (35.4-49) D 10/17/18 05:30 MCV 92.2 fl (80-96) 10/17/18 05:30 MCH 31.5 pg (25.7-33.7) 10/17/18 05:30 MCHC 34.2 g/dl (32.0-35.9) 10/17/18 05:30 RDW 12.3 % (11.9-15.9) 10/17/18 05:30 Plt Count 295 K/MM3 (134-434) D 10/17/18 05:30 MPV 6.9 fl (7.5-11.1) L 10/17/18 05:30 Absolute Neuts (auto) 12.0 K/mm3 (1.5-8.0) H 10/17/18 05:30 Neutrophils % 80.6 % (42.8-82.8) 10/17/18 05:30 Lymphocytes % 12.2 % (8-40) 10/17/18 05:30 Monocytes % 6.7 % (3.8-10.2) 10/17/18 05:30 Eosinophils % 0.2 % (0-4.5) D 10/17/18 05:30 Basophils % 0.3 % (0-2.0) 10/17/18 05:30 Nucleated RBC % 0 % (0-0) 10/17/18 05:30 Sodium 137 mmol/L (136-145) 10/17/18 05:30 Potassium 4.0 mmol/L (3.5-5.1) 10/17/18 05:30 Chloride 99 mmol/L (98-107) 10/17/18 05:30 Carbon Dioxide 33 mmol/L (21-32) H 10/17/18 05:30 Anion Gap 4 MMOL/L (8-16) L 10/17/18 05:30 BUN 7.3 mg/dL (7-18) 10/17/18 05:30 Creatinine 0.7 mg/dL (0.55-1.3) 10/17/18 05:30 Est GFR (CKD-EPI)AfAm 147.81 10/17/18 05:30 Est GFR (CKD-EPI)NonAf 127.53 10/17/18 05:30 Random Glucose 81 mg/dL (74-106) 10/17/18 05:30 Calcium 8.6 mg/dL (8.5-10.1) 10/17/18 05:30 Phosphorus 3.0 mg/dL (2.5-4.9) 10/17/18 05:30 Magnesium 2.0 mg/dL (1.8-2.4) 10/17/18 05:30 Total Bilirubin 0.7 mg/dL (0.2-1) 10/17/18 05:30 AST 17 U/L (15-37) 10/17/18 05:30 ALT 28 U/L (13-61) 10/17/18 05:30 Alkaline Phosphatase 68 U/L (45-117) 10/17/18 05:30 LD Total 262 U/L (87-246) H 10/16/18 06:15 Creatine Kinase 36 U/L (26-308) 10/16/18 18:55 Troponin I < 0.02 ng/ml (0.00-0.05) 10/16/18 18:55 C-Reactive Protein 6.0 MG/DL (0.00-0.3) H 10/17/18 05:30 Total Protein 5.9 g/dl (6.4-8.2) L 10/17/18 05:30 Albumin 3.1 g/dl (3.4-5.0) L 10/17/18 05:30 Triglycerides 53 mg/dL (0-150) 10/17/18 05:30 Total Amylase > 1300 U/L (25-115) H 10/17/18 05:30 Lipase 55305 U/L (73-393) H 10/17/18 05:30 TSH 0.87 uIU/ml (0.358-3.74) 10/17/18 05:30 Active Medications Generic Name Dose Route Start Last Admin Trade Name Freq PRN Reason Stop Dose Admin Folic Acid 0.4 mg 10/17/18 10:00 Folic Acid Injection - SQ DAILY [facility] Heparin Sodium (Porcine) 5,000 unit 10/16/18 22:00 10/17/18 11:07 Heparin - SQ 5,000 unit BID [facility] Administration Hydromorphone HCl 2 mg 10/17/18 03:27 10/17/18 06:54 Dilaudid Vial - IVPUSH 2 mg Q6H PRN Administration PAIN LEVEL 7 - 10 Famotidine/Sodium Chloride 20 mg in 50 mls @ 100 mls/hr 10/17/18 10:00 11:08 Pepcid 20 Mg Premixed Ivpb - IVPB 100 mls/hr BID [facility] Administration Dextrose/Lactated Ringer's 1,000 mls @ 200 mls/hr 10/17/18 11:00 D5-Lr - IV ASDIR [facility] Ketorolac Tromethamine 15 mg 10/16/18 14:02 10/17/18 11:11 Toradol Injection - IVPUSH 10/21/18 14:01 15 mg Q6H PRN Administration PAIN LEVEL 6-10 Lorazepam 1 mg 10/16/18 18:29 10/17/18 03:29 Ativan Injection - IVPUSH 1 mg TID PRN Administration ANXIETY Ondansetron HCl 4 mg 10/16/18 14:02 10/16/18 17:03 Zofran Injection IVPB 4 mg Q6H PRN Administration NAUSEA AND/OR VOMITING Pantoprazole Sodium 40 mg 10/16/18 19:30 10/17/18 11:08 Protonix Iv IVPUSH 40 mg DAILY [facility] Administration Thiamine HCl 200 mg 10/17/18 10:00 Vitamin B1 Injection - IVPB DAILY [facility] ASSESSMENT/PLAN: Tesfaye Walton is a 28 year old male with a PMHx of alchoholism (7 year history with intermittent sobriety) and hx of necrotizing pancreatitis (03/2015 ) who presents with pancreatitis. Acute Pancreatitis Ethanol Abuse NEUROLOGIC - no acute issues CARDIOLOGY - had episode of bradycardia this morning - EKG showing normal sinus rhythm - monitor showing occasional bradycardia - continue yeast tender RESPIRATORY - no acute issues - encourage incentive spirometry RENAL - no acute issues GASTROINTESTINAL - CT Abd showing peripancreatic fluid suggestive of pancreatitis, no cysts or abscess. No evidence of acute appendicitis - Lipase trending down from 20k to 13k - pancreatitis likely of alcoholic etiology, alcohol tox level elevated - liver enzymes within normal limits, trend - no antibiotics as per ID - Dr. Alvarez consulted, recs appreciated - D5LR @ 200cc/hr - Protonix - pain control with toradol and Dilaudid - if not improving, may require reimaging - discussed alcohol cessation GENITOURINARY - no acute issues INFECTIOUS DISEASE - no abx as per ID ENDOCRINE - no acute issues HEMATOLOGY - no acute issues MUSCULOSKELETAL - no acute issues PSYCHIATRY - Dr. Miranda consult placed for alcohol abuse - Ativan for withdrawl sx - Dr. Stevens consulted F/E/N - D5LR @ 200cc - monitor electrolytes and replete as necessary - NPO - folic acid and thiamine supplementation LINES - RAC 18 guage inserted 10/16 PROPHYLAXIS - heparin 5000 subq tid CODE - full code DISPO - stable for transfer to telemetry CASE DISCUSSED WITH DR. PEARSON AND PRIMARY TEAM JERROD BARBOUR DO - PGY-1 INTERNAL MEDICINE Visit type - Emergency Visit Emergency Visit: No - New Patient This patient is new to me today: Yes Date on this admission: 10/17/18 - Critical Care Critical Care patient: No
--- NOTE | 2018-10-17 16:38 | PN.GI ---
GI Progress Note Subjective: GI NOte: Dr. Catalan's help is appreciated. Tesfaye continues to have epigastric pain requiring narcotics yet expresses hunger. I explained that he cannot be fed until the pain resolved. He tells me that he feels tremulous and that the Ativan wore off. He drinks over a pint of vodka daily. He lives alone. His mother is a recovering alcoholic. - Objective Vital Signs: Vital Signs Temperature 97.2 F L 10/17/18 07:07 Pulse Rate 71 10/17/18 10:00 Respiratory Rate 22 H 10/17/18 10:00 Blood Pressure 152/94 10/17/18 10:00 O2 Sat by Pulse Oximetry (%) 98 10/17/18 09:00 Laboratory Tests 10/16/18 10/16/18 10/17/18 06:15 06:15 05:30 WBC 22.5 H 14.9 H Total Bilirubin AST ALT Alkaline Phosphatase C-Reactive Protein Total Amylase Lipase 54394 H 10/17/18 10/17/18 05:30 05:30 WBC Total Bilirubin 0.7 AST 17 ALT 28 Alkaline Phosphatase 68 C-Reactive Protein 6.0 H Total Amylase > 1300 H Lipase 57417 H Constitutional: Anxious Eyes: Yes: Conjunctiva Clear Cardiovascular: Yes: Regular Rate and Rhythm Respiratory: Yes: CTA Bilaterally ...Auscultate: Yes: Hypoactive Bowel Sounds ...Palpate: Yes: Soft, Tenderness (epigastric tenderness is mild) Labs: CBC, BMP 10/17/18 05:30 10/17/18 05:30 Assessment/Plan Impression: - Acute alcoholic pancreatitis superimposed on chronic alcoholic pancreatitis, no signs of abscess at this point - Alcohol withdrawal Plan: -- Continue NPO except for ice chips and meds -- Continue RL at 200cc/hr -- Start Librium tapering regimen -- Blood cultures and antibiotics to be initiated while ordering a repeat CT if fever, chills, worsening pain or other signs of abscess arise -- Discussed the advance degree of pancreatic damage that exists when the first attack of alcoholic pancreatitis arises with Tesfaye and the need for absolute alcohol abstinence. -- Discussed plan with Catherine, his nurse -- Dr Mullins will be covering this weekend Problem List - Problems (1) Alcohol-induced pancreatitis Code(s): K85.20 - ALCOHOL INDUCED ACUTE PANCREATITIS WITHOUT NECROSIS OR INFCT Qualifiers: Chronicity: acute Acute pancreatitis complication: unspecified Qualified Code(s): K85.20 - Alcohol induced acute pancreatitis without necrosis or infection (2) Leukocytosis Code(s): D72.829 - ELEVATED WHITE BLOOD CELL COUNT, UNSPECIFIED (3) Alcohol dependence, continuous drinking behavior Code(s): F10.20 - ALCOHOL DEPENDENCE, UNCOMPLICATED (4) Alcohol withdrawal Code(s): F10.239 - ALCOHOL DEPENDENCE WITH WITHDRAWAL, UNSPECIFIED
[2018-10-17] MEDS ORDERED: ONDANSETRON 4 MG/2 ML VIAL IVPB PRN (18:19)
[2018-10-17] MEDS: DEXTROSE 5%-LACTATED RINGERS 1,000 ML IV SCH (18:22)
--- NOTE | 2018-10-17 18:48 | CON.PSY ---
Psychiatry Consult Chief Complaint: 28 jody old emely Alcohol [id number] seen for Psych eval.He reports feeling [id number] on and off. Denies any suicidal plans or thoughts. Symptoms: reports: Depressed Mood - Previous Psychiatric Treatment Outpatient: None Inpatient: None - Previous Substance Abuse Treatment Outpatient: Less than 6 mos ago Inpatient: Within the last 12 months - Current Medications Current Medications: Active Medications Chlordiazepoxide HCl (Librium -) 50 mg PO TID [facility] Stop: 10/19/18 08:00 Chlordiazepoxide HCl (Librium -) 25 mg PO TID [facility] Stop: 10/20/18 08:00 Chlordiazepoxide HCl (Librium -) 15 mg PO TID [facility] Stop: 10/21/18 08:00 Chlordiazepoxide HCl (Librium -) 10 mg PO TID [facility] Stop: 10/22/18 08:00 Chlordiazepoxide HCl (Librium -) 5 mg PO TID [facility] Stop: 10/23/18 08:00 Chlordiazepoxide HCl (Librium -) 5 mg PO DAILY [facility] Folic Acid (Folic Acid Injection -) 0.4 mg SQ DAILY [facility] Heparin Sodium (Porcine) (Heparin -) 5,000 unit SQ BID [facility] Hydromorphone HCl (Dilaudid Vial -) 2 mg IVPUSH Q6H PRN PRN Reason: PAIN LEVEL 7 - 10 Dextrose/Lactated Ringer's (D5-Lr -) 1,000 mls @ 200 mls/hr IV ASDIR [facility] Last Admin: 10/17/18 18:22 Dose: 200 mls/hr Famotidine/Sodium Chloride (Pepcid 20 Mg Premixed Ivpb -) 20 mg in 50 mls @ 100 mls/hr IVPB BID [facility] Ketorolac Tromethamine (Toradol Injection -) 15 mg IVPUSH Q6H PRN PRN Reason: PAIN LEVEL 6-10 Stop: 10/21/18 14:01 Lorazepam (Ativan Injection -) 1 mg IVPUSH TID PRN PRN Reason: ANXIETY Ondansetron HCl (Zofran Injection) 4 mg IVPB Q6H PRN PRN Reason: NAUSEA AND/OR VOMITING Pantoprazole Sodium (Protonix Iv) 40 mg IVPUSH DAILY [facility] Thiamine HCl (Vitamin B1 Injection -) 200 mg IVPB DAILY [facility] - Allergies Allergies: Allergies Allergy/AdvReac Type Severity Reaction Status Date / Time No Known Allergies Allergy Verified 06/18/18 21:42 - Current Living Status Usual Living Arrangement: Alone - Current Mental Status Evaluation Appearance: Well Groomed Attitude: Guarded - Affect Affect: Full Range, Constrictive Appropriateness: Appropriate to Content - Mood Mood: Depressed - Speech/Language Expressive: Coherent - Psychomotor Activity Psychomotor Activity: Slowed - Thought Process Thought Process: Intact - Thought Content Hallucinations: Absent Delusions: Absent - Self Perception Self Perception: No Impairment - Cognition Attention: Alert Orientation: Time Memory, Immediate Recall: Intact Memory, Short Term: 3/3 Memory, Remote with Promptin/3 - Concentration Serial Sevens Intact: Yes Simple Calculations Intact: Yes - Abstraction Proverb Interpretation: Intact Judgement: Intact - Insight Insight: Impaired - Impulse Control Impulse Control: Minimally Impaired - Suicidal Ideation Suicidal Ideation: No - Homicidal Ideation Homicidal Ideation: No Assessment/Plan 1) continue with Detox protocol. 2) no need for anti depressants. 3) {Patient does not want any Psych meds.
--- NOTE | 2018-10-17 19:20 | PN ---
[facility] Progress Note (SOAP) Subjective: 28 y/o male referred for consultation , reports 6-7 year hx of etoh use , 1 pint/day , hospitalized for abdominal pain , denies seizures, blackouts reports tremors if not drinking , reports he usually starts drinking around 8 p.m. This is his 2nd hospitalization for similar c/o , h/o pancreatitis 2014. 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 Active Medications Chlordiazepoxide HCl (Librium -) 50 mg PO TID [facility] Stop: 10/19/18 08:00 Chlordiazepoxide HCl (Librium -) 25 mg PO TID [facility] Stop: 10/20/18 08:00 Chlordiazepoxide HCl (Librium -) 15 mg PO TID [facility] Stop: 10/21/18 08:00 Chlordiazepoxide HCl (Librium -) 10 mg PO TID [facility] Stop: 10/22/18 08:00 Chlordiazepoxide HCl (Librium -) 5 mg PO TID [facility] Stop: 10/23/18 08:00 Chlordiazepoxide HCl (Librium -) 5 mg PO DAILY [facility] Folic Acid (Folic Acid Injection -) 0.4 mg SQ DAILY [facility] Heparin Sodium (Porcine) (Heparin -) 5,000 unit SQ BID [facility] Hydromorphone HCl (Dilaudid Vial -) 2 mg IVPUSH Q6H PRN PRN Reason: PAIN LEVEL 7 - 10 Dextrose/Lactated Ringer's (D5-Lr -) 1,000 mls @ 200 mls/hr IV ASDIR [facility] Last Admin: 10/17/18 18:22 Dose: 200 mls/hr Famotidine/Sodium Chloride (Pepcid 20 Mg Premixed Ivpb -) 20 mg in 50 mls @ 100 mls/hr IVPB BID [facility] Ketorolac Tromethamine (Toradol Injection -) 15 mg IVPUSH Q6H PRN PRN Reason: PAIN LEVEL 6-10 Stop: 10/21/18 14:01 Lorazepam (Ativan Injection -) 1 mg IVPUSH TID PRN PRN Reason: ANXIETY Ondansetron HCl (Zofran Injection) 4 mg IVPB Q6H PRN PRN Reason: NAUSEA AND/OR VOMITING Pantoprazole Sodium (Protonix Iv) 40 mg IVPUSH DAILY [facility] Thiamine HCl (Vitamin B1 Injection -) 200 mg IVPB DAILY [facility] Objective: wnwd , drowsy + UE tremors , AAO x 3 CBC, BMP 10/17/18 05:30 10/17/18 05:30 Vital Signs - 24 hr 10/16/18 10/16/18 10/16/18 20:54 21:09 23:16 Temperature 98.1 F Pulse Rate 91 H Respiratory 18 18 Rate Blood Pressure 127/77 O2 Sat by Pulse 98 98 Oximetry (%) 10/17/18 10/17/18 10/17/18 00:00 02:00 07:07 Temperature 98.2 F 97.2 F L Pulse Rate 58 L 61 58 L Respiratory 12 16 22 H Rate Blood Pressure 140/87 150/92 O2 Sat by Pulse Oximetry (%) 10/17/18 10/17/18 10/17/18 09:00 10:00 16:38 Temperature Pulse Rate 71 87 Respiratory 22 H 22 H 20 Rate Blood Pressure 152/94 137/58 L O2 Sat by Pulse 98 Oximetry (%) 10/17/18 19:12 Temperature Pulse Rate 99 H Respiratory 20 Rate Blood Pressure 127/89 O2 Sat by Pulse Oximetry (%) Assessment: alcohol dependence with withdrawal Plan: continue Librium taper , pt to consider inpt rehab or outpt clinic referral upon d/c from the hospital.
[2018-10-17] MEDS: chlordiazePOXIDE HCL 25 MG CAPSULE PO SCH (22:01)
[2018-10-17] MEDS: FAMOTIDINE 20 MG/50 ML IVPB 20 MG/50 ML MG IVPB SCH (22:02)
[2018-10-17] MEDS: LORazepam 2 MG/ML SDV VIAL IVPUSH PRN (23:58)
[2018-10-18] MEDS: HYDROmorphone HCl 2 MG/ML VIAL IVPUSH PRN ×4 (02:48→20:36)
[2018-10-18] MEDS: KETOROLAC TROMETHAMINE 15 MG/ML VIAL IVPUSH PRN ×4 (04:06→20:34)
[2018-10-18] MEDS: chlordiazePOXIDE HCL 25 MG CAPSULE PO SCH ×3 (05:37→22:19)
[2018-10-18 07:17] LABS: HEMATOCRIT 37.4 % (35.4-49); MCH 31.6 pg (25.7-33.7); MCHC 34.7 g/dl (32.0-35.9); MEAN CELL VOLUME 90.9 fl (80-96); RBC 4.12 M/mm3 (4.00-5.60); RDW 12.5 % (11.9-15.9); WHITE BLOOD COUNT 11.2 K/mm3 (4.0-10.0)
[2018-10-18 07:54] LABS: ALBUMIN 2.9 g/dl (3.4-5.0); BILIRUBIN,DIRECT 0.2 mg/dL (0.0-0.2); BILIRUBIN,TOTAL 0.7 mg/dL (0.2-1); BLOOD UREA NITROGEN 6.4 mg/dL (7-18); CALCIUM 8.6 mg/dL (8.5-10.1); CREATININE 0.7 mg/dL (0.55-1.3); MAGNESIUM 2.2 mg/dL (1.8-2.4); PHOSPHOROUS 3.1 mg/dL (2.5-4.9); POTASSIUM 3.3 mmol/L (3.5-5.1); TOT PROT 6.1 g/dl (6.4-8.2)
[2018-10-18 08:02] LABS: PLATELET COUNT 277 K/MM3 (134-434)
[2018-10-18] MEDS ORDERED: PT OWN MED DRAWER 7, Y5N ONE ×2 (09:30→10:23)
[2018-10-18] MEDS: LORazepam 2 MG/ML SDV VIAL IVPUSH PRN ×3 (09:36→23:40)
[2018-10-18] MEDS: HEPARIN NA (PORCINE) 5,000 UNITS/ML 1ML VIAL SQ SCH ×2 (09:36→22:19)
[2018-10-18] MEDS: THIAMINE HCL 200 MG/2 ML VIAL IVPB SCH (09:36)
[2018-10-18] MEDS: FAMOTIDINE 20 MG/50 ML IVPB 20 MG/50 ML MG IVPB SCH ×2 (09:37→22:19)
[2018-10-18] MEDS: PANTOPRAZOLE SODIUM 40 MG VIAL IVPUSH SCH (09:37)
--- NOTE | 2018-10-18 09:45 | PN.GI ---
GI Progress Note Subjective: feeling better - no complaints / less pain - Objective Vital Signs: Vital Signs Temperature 98.5 F 10/18/18 02:00 Pulse Rate 83 10/18/18 02:00 Respiratory Rate 10/18/18 02:00 Blood Pressure 131/75 10/18/18 02:00 O2 Sat by Pulse Oximetry (%) 99 10/17/18 21:00 Constitutional: Well Nourished Eyes: Yes: WNL HENT: Yes: WNL Neck: Yes: WNL, Supple Cardiovascular: Yes: WNL, Regular Rate and Rhythm Respiratory: Yes: WNL, Regular, CTA Bilaterally Gastrointestinal Inspection: Yes: WNL ...Auscultate: Yes: Normoactive Bowel Sounds Extremities: Yes: WNL Edema: No Labs: CBC, BMP 10/18/18 05:52 10/18/18 05:52 Problem List - Problems (1) Alcohol withdrawal Assessment/Plan: withdrawal protocol trend cbc / cmet daily clear liquid diet Code(s): F10.239 - ALCOHOL DEPENDENCE WITH WITHDRAWAL, UNSPECIFIED (2) Alcohol-induced pancreatitis Code(s): K85.20 - ALCOHOL INDUCED ACUTE PANCREATITIS WITHOUT NECROSIS OR INFCT Qualifiers: Chronicity: acute Acute pancreatitis complication: unspecified Qualified Code(s): K85.20 - Alcohol induced acute pancreatitis without necrosis or infection (3) Alcohol dependence with uncomplicated withdrawal Code(s): F10.230 - ALCOHOL DEPENDENCE WITH WITHDRAWAL, UNCOMPLICATED (4) Alcohol dependence, continuous drinking behavior Code(s): F10.20 - ALCOHOL DEPENDENCE, UNCOMPLICATED
[2018-10-18] MEDS: FOLIC ACID 5 MG/1 ML SQ SCH (11:37)
--- NOTE | 2018-10-18 14:05 | PN ---
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 - Current Medication List Current Medications: Active Medications Chlordiazepoxide HCl (Librium -) 50 mg PO TID [facility] Stop: 10/19/18 08:00 Last Admin: 10/18/18 13:18 Dose: 50 mg Chlordiazepoxide HCl (Librium -) 25 mg PO TID [facility] Stop: 10/20/18 08:00 Chlordiazepoxide HCl (Librium -) 15 mg PO TID [facility] Stop: 10/21/18 08:00 Chlordiazepoxide HCl (Librium -) 10 mg PO TID [facility] Stop: 10/22/18 08:00 Chlordiazepoxide HCl (Librium -) 5 mg PO TID [facility] Stop: 10/23/18 08:00 Chlordiazepoxide HCl (Librium -) 5 mg PO DAILY [facility] Folic Acid (Folic Acid Injection -) 0.4 mg SQ DAILY [facility] Last Admin: 10/18/18 11:37 Dose: 0.4 mg Heparin Sodium (Porcine) (Heparin -) 5,000 unit SQ BID [facility] Last Admin: 10/18/18 09:36 Dose: 5,000 unit Hydromorphone HCl (Dilaudid Vial -) 2 mg IVPUSH Q6H PRN PRN Reason: PAIN LEVEL 7 - 10 Last Admin: 10/18/18 08:49 Dose: 2 mg Dextrose/Lactated Ringer's (D5-Lr -) 1,000 mls @ 200 mls/hr IV ASDIR [facility] Last Admin: 10/17/18 18:22 Dose: 200 mls/hr Famotidine/Sodium Chloride (Pepcid 20 Mg Premixed Ivpb -) 20 mg in 50 mls @ 100 mls/hr IVPB BID [facility] Last Admin: 10/18/18 09:37 Dose: 100 mls/hr Ketorolac Tromethamine (Toradol Injection -) 15 mg IVPUSH Q6H PRN PRN Reason: PAIN LEVEL 6-10 Stop: 10/21/18 14:01 Last Admin: 10/18/18 10:25 Dose: 15 mg Lorazepam (Ativan Injection -) 1 mg IVPUSH TID PRN PRN Reason: ANXIETY Last Admin: 10/18/18 09:36 Dose: 1 mg Ondansetron HCl (Zofran Injection) 4 mg IVPB Q6H PRN PRN Reason: NAUSEA AND/OR VOMITING Pantoprazole Sodium (Protonix Iv) 40 mg IVPUSH DAILY [facility] Last Admin: 10/18/18 09:37 Dose: 40 mg Thiamine HCl (Vitamin B1 Injection -) 200 mg IVPB DAILY [facility] Last Admin: 10/18/18 09:36 Dose: 200 mg - Objective Vital Signs: Vital Signs Temperature 98.2 F 10/18/18 10:00 Pulse Rate 90 10/18/18 10:00 Respiratory Rate 20 10/18/18 10:00 Blood Pressure 133/80 10/18/18 10:00 O2 Sat by Pulse Oximetry (%) 98 10/18/18 09:00 Constitutional: Yes: Mild Distress Eyes: Yes: WNL HENT: Yes: WNL Neck: Yes: WNL Cardiovascular: Yes: Regular Rate and Rhythm Respiratory: Yes: WNL Gastrointestinal: Yes: Soft, Tenderness Genitourinary: Yes: WNL Musculoskeletal: Yes: WNL Extremities: Yes: WNL Edema: No Peripheral Pulses WNL: Yes Integumentary: Yes: WNL Wound/Incision: Yes: Steri Strips Neurological: Yes: WNL ...Motor Strength: WNL Psychiatric: Yes: Other Labs: CBC, BMP 10/18/18 05:52 10/18/18 05:52 Problem List - Problems (1) Alcohol withdrawal Code(s): F10.239 - ALCOHOL DEPENDENCE WITH WITHDRAWAL, UNSPECIFIED (2) Alcohol-induced pancreatitis Code(s): K85.20 - ALCOHOL INDUCED ACUTE PANCREATITIS WITHOUT NECROSIS OR INFCT Qualifiers: Chronicity: acute Acute pancreatitis complication: unspecified Qualified Code(s): K85.20 - Alcohol induced acute pancreatitis without necrosis or infection (3) Leukocytosis Code(s): D72.829 - ELEVATED WHITE BLOOD CELL COUNT, UNSPECIFIED (4) Alcohol dependence, continuous drinking behavior Code(s): F10.20 - ALCOHOL DEPENDENCE, UNCOMPLICATED (5) Alcohol-induced anxiety disorder Code(s): F10.980 - ALCOHOL USE, UNSP WITH ALCOHOL-INDUCED ANXIETY DISORDER Assessment/Plan IVF WITH PAIN CONTROL NPO CAN START CLEAR DIET GI EVAL APPRECIATED DVT PROPHYLAXIS PPI ETOH WIOTHDRAWEL PROTOCOL AND CONSULT ON LIBRIUM WILL NEED OUTPATIENT VS INPATIENT PROGRAM FOR ETOH ABUSE
[2018-10-18] MEDS ORDERED: POTASSIUM CHLORIDE TABS 20 MEQ TABLET.ER (FP) PO ONE (14:30)
[2018-10-18] MEDS: DEXTROSE 5%-LACTATED RINGERS 1,000 ML IV SCH ×2 (18:21→23:29)
[2018-10-19] MEDS: HYDROmorphone HCl 2 MG/ML VIAL IVPUSH PRN ×4 (02:30→21:58)
[2018-10-19] MEDS: KETOROLAC TROMETHAMINE 15 MG/ML VIAL IVPUSH PRN ×4 (02:30→21:59)
[2018-10-19] MEDS: LORazepam 2 MG/ML SDV VIAL IVPUSH PRN ×2 (05:34→20:18)
[2018-10-19] MEDS: chlordiazePOXIDE HCL 25 MG CAPSULE PO SCH ×4 (05:41→21:24)
[2018-10-19 08:41] LABS: BILIRUBIN,DIRECT 0.2 mg/dL (0.0-0.2); BILIRUBIN,TOTAL 0.5 mg/dL (0.2-1); BLOOD UREA NITROGEN 3.7 mg/dL (7-18); CALCIUM 8.7 mg/dL (8.5-10.1); CREATININE 0.8 mg/dL (0.55-1.3); POTASSIUM 3.9 mmol/L (3.5-5.1); TOT PROT 6.3 g/dl (6.4-8.2)
[2018-10-19] MEDS ORDERED: PT OWN MED DRAWER 7, Y5N ONE ×2 (08:43→11:14)
[2018-10-19 09:18] LABS: BASO % 0.8 % (0-2.0); EOS % 2.3 % (0-4.5); HEMATOCRIT 37.9 % (35.4-49); HEMOGLOBIN 12.9 GM/dL (11.7-16.9); LYMPH % 23.9 % (8-40); MCH 31.6 pg (25.7-33.7); MCHC 34.1 g/dl (32.0-35.9); MEAN CELL VOLUME 92.6 fl (80-96); MEAN PLT VOLUME 7.5 fl (7.5-11.1); MONO % 11.3 % (3.8-10.2); NEUT % 61.7 % (42.8-82.8); PLATELET COUNT 328 K/MM3 (134-434); RBC 4.09 M/mm3 (4.00-5.60); RDW 12.3 % (11.9-15.9); WHITE BLOOD COUNT 9.5 K/mm3 (4.0-10.0)
--- NOTE | 2018-10-19 09:39 | PN ---
Progress Note, Physician Chief Complaint: ASLEEP, NO EVENTS OVERNIGHT TOLERATED CLEAR DIET - Current Medication List Current Medications: Active Medications Chlordiazepoxide HCl (Librium -) 25 mg PO TID [facility] Stop: 10/20/18 08:00 Chlordiazepoxide HCl (Librium -) 15 mg PO TID [facility] Stop: 10/21/18 08:00 Chlordiazepoxide HCl (Librium -) 10 mg PO TID [facility] Stop: 10/22/18 08:00 Chlordiazepoxide HCl (Librium -) 5 mg PO TID [facility] Stop: 10/23/18 08:00 Chlordiazepoxide HCl (Librium -) 5 mg PO DAILY [facility] Folic Acid (Folic Acid Injection -) 0.4 mg SQ DAILY [facility] Last Admin: 10/18/18 11:37 Dose: 0.4 mg Heparin Sodium (Porcine) (Heparin -) 5,000 unit SQ BID [facility] Last Admin: 10/18/18 22:19 Dose: 5,000 unit Hydromorphone HCl (Dilaudid Vial -) 2 mg IVPUSH Q6H PRN PRN Reason: PAIN LEVEL 7 - 10 Last Admin: 10/19/18 02:30 Dose: 2 mg Dextrose/Lactated Ringer's (D5-Lr -) 1,000 mls @ 200 mls/hr IV ASDIR [facility] Last Admin: 10/18/18 23:29 Dose: 200 mls/hr Famotidine/Sodium Chloride (Pepcid 20 Mg Premixed Ivpb -) 20 mg in 50 mls @ 100 mls/hr IVPB BID [facility] Last Admin: 10/18/18 22:19 Dose: 100 mls/hr Ketorolac Tromethamine (Toradol Injection -) 15 mg IVPUSH Q6H PRN PRN Reason: PAIN LEVEL 6-10 Stop: 10/21/18 14:01 Last Admin: 10/19/18 02:30 Dose: 15 mg Lorazepam (Ativan Injection -) 1 mg IVPUSH TID PRN PRN Reason: ANXIETY Last Admin: 10/19/18 05:34 Dose: 1 mg Ondansetron HCl (Zofran Injection) 4 mg IVPB Q6H PRN PRN Reason: NAUSEA AND/OR VOMITING Last Admin: 10/18/18 20:34 Dose: 4 mg Pantoprazole Sodium (Protonix Iv) 40 mg IVPUSH DAILY [facility] Last Admin: 10/18/18 09:37 Dose: 40 mg Thiamine HCl (Vitamin B1 Injection -) 200 mg IVPB DAILY [facility] Last Admin: 10/18/18 09:36 Dose: 200 mg - Objective Vital Signs: Vital Signs Temperature 98.1 F 10/19/18 05:36 Pulse Rate 70 10/19/18 05:36 Respiratory Rate 20 10/19/18 05:36 Blood Pressure 125/65 10/19/18 05:36 O2 Sat by Pulse Oximetry (%) 99 10/18/18 22:00 Constitutional: Yes: No Distress Eyes: Yes: WNL HENT: Yes: WNL Neck: Yes: WNL Cardiovascular: Yes: WNL Respiratory: Yes: Regular Gastrointestinal: Yes: Tenderness Musculoskeletal: Yes: WNL Extremities: Yes: WNL Edema: No Peripheral Pulses WNL: Yes Integumentary: Yes: Tattoos Wound/Incision: Yes: Clean/Dry Neurological: Yes: WNL ...Motor Strength: WNL Psychiatric: Yes: WNL Labs: CBC, BMP 10/19/18 06:20 10/19/18 06:20 Problem List - Problems (1) Alcohol withdrawal Code(s): F10.239 - ALCOHOL DEPENDENCE WITH WITHDRAWAL, UNSPECIFIED (2) Alcohol-induced pancreatitis Code(s): K85.20 - ALCOHOL INDUCED ACUTE PANCREATITIS WITHOUT NECROSIS OR INFCT Qualifiers: Chronicity: acute Acute pancreatitis complication: unspecified Qualified Code(s): K85.20 - Alcohol induced acute pancreatitis without necrosis or infection (3) Leukocytosis Code(s): D72.829 - ELEVATED WHITE BLOOD CELL COUNT, UNSPECIFIED (4) Alcohol dependence, continuous drinking behavior Code(s): F10.20 - ALCOHOL DEPENDENCE, UNCOMPLICATED (5) Alcohol-induced anxiety disorder Code(s): F10.980 - ALCOHOL USE, UNSP WITH ALCOHOL-INDUCED ANXIETY DISORDER Assessment/Plan IVF WITH PAIN CONTROL ADVANCE TO FULL LIQUID DIET GI EVAL APPRECIATED DVT PROPHYLAXIS PPI ETOH WIOTHDRAWEL PROTOCOL AND CONSULT ON LIBRIUM WILL NEED OUTPATIENT VS INPATIENT PROGRAM FOR ETOH ABUSE DC TELEMETRY
[2018-10-19] MEDS: FAMOTIDINE 20 MG/50 ML IVPB 20 MG/50 ML MG IVPB SCH ×2 (11:10→21:24)
[2018-10-19] MEDS: PANTOPRAZOLE SODIUM 40 MG VIAL IVPUSH SCH (11:10)
[2018-10-19] MEDS: THIAMINE HCL 200 MG/2 ML VIAL IVPB SCH (11:11)
[2018-10-19] MEDS: HEPARIN NA (PORCINE) 5,000 UNITS/ML 1ML VIAL SQ SCH ×2 (11:26→21:21)
[2018-10-19] MEDS: FOLIC ACID 5 MG/1 ML SQ SCH (14:42)
[2018-10-19] MEDS: DEXTROSE 5%-LACTATED RINGERS 1,000 ML IV SCH (16:00)
[2018-10-19] MEDS ORDERED: MELATONIN 5 MG TABLETS PO ONE (23:57)
[2018-10-20] MEDS: LORazepam 2 MG/ML SDV VIAL IVPUSH PRN (02:34)
[2018-10-20] MEDS: HYDROmorphone HCl 2 MG/ML VIAL IVPUSH PRN ×2 (04:02→10:05)
[2018-10-20] MEDS: KETOROLAC TROMETHAMINE 15 MG/ML VIAL IVPUSH PRN ×2 (04:03→10:04)
[2018-10-20] MEDS: chlordiazePOXIDE HCL 25 MG CAPSULE PO SCH (06:13)
[2018-10-20 07:00] LABS: EOS % 2.7 % (0-4.5); HEMATOCRIT 37.3 % (35.4-49); HEMOGLOBIN 12.6 GM/dL (11.7-16.9); LYMPH % 26.8 % (8-40); MCH 31.3 pg (25.7-33.7); MCHC 33.8 g/dl (32.0-35.9); MEAN CELL VOLUME 92.6 fl (80-96); MEAN PLT VOLUME 7.2 fl (7.5-11.1); MONO % 10.7 % (3.8-10.2); NEUT % 58.8 % (42.8-82.8); PLATELET COUNT 324 K/MM3 (134-434); RBC 4.03 M/mm3 (4.00-5.60); RDW 12.3 % (11.9-15.9)
[2018-10-20 07:10] LABS: BILIRUBIN,DIRECT 0.1 mg/dL (0.0-0.2); BILIRUBIN,TOTAL 0.2 mg/dL (0.2-1); CREATININE 0.8 mg/dL (0.55-1.3); POTASSIUM 3.8 mmol/L (3.5-5.1); TOT PROT 5.9 g/dl (6.4-8.2)
[2018-10-20 07:20] LABS: BLOOD UREA NITROGEN 2.6 mg/dL (7-18)
[2018-10-20] MEDS: PANTOPRAZOLE SODIUM 40 MG VIAL IVPUSH SCH (10:05)
[2018-10-20] MEDS: THIAMINE HCL 200 MG/2 ML VIAL IVPB SCH (10:05)
[2018-10-20] MEDS: FAMOTIDINE 20 MG/50 ML IVPB 20 MG/50 ML MG IVPB SCH (10:05)
[2018-10-20] MEDS: HEPARIN NA (PORCINE) 5,000 UNITS/ML 1ML VIAL SQ SCH (10:06)
[2018-10-20] MEDS: chlordiazePOXIDE 5 MG CAPSULE PO SCH ×2 (10:47→13:55)
[2018-10-20 10:52] VITALS: BP 127/80; PULSE 77; TEMP 97.6
--- NOTE | 2018-10-20 11:36 | PN.GI ---
GI Progress Note Subjective: GI NOte: Very hungry and wants to eat solids and to be discharged. I encouraged that he enter into an inpatient program but he declines and tells me that he is already familiar with local outpatient programs I explained that this indicates that we can stop his parenteral analgesics. He is agreeable - Objective Vital Signs: Vital Signs Temperature 97.6 F 10/20/18 09:00 Pulse Rate 77 10/20/18 09:00 Respiratory Rate 20 10/20/18 09:00 Blood Pressure 127/80 10/20/18 09:00 O2 Sat by Pulse Oximetry (%) 98 10/20/18 09:00 Laboratory Tests 10/18/18 10/18/18 10/19/18 05:52 10:00 06:20 WBC Hgb Total Bilirubin AST ALT Alkaline Phosphatase C-Reactive Protein 10.9 H 8.2 H Lipase 7216 H 10/20/18 10/20/18 05:10 05:10 WBC 9.0 Hgb 12.6 Total Bilirubin 0.2 AST 11 L ALT 18 Alkaline Phosphatase 57 C-Reactive Protein 4.5 H Lipase 3148 H Constitutional: Calm ...Auscultate: Yes: Normoactive Bowel Sounds ...Palpate: Yes: Soft, Other (nontender) Labs: CBC, BMP 10/20/18 05:10 10/20/18 05:10 Assessment/Plan Impression: - Acute alcoholic pancreatitis superimposed on chronic alcoholic pancreatitis, no signs of abscess at this point - Alcohol withdrawal Plan: -- Trial of solids -- Stop narcotics -- Continue Librium tapering regimen -- Discussed the advance degree of pancreatic damage that exists when the first attack of alcoholic pancreatitis arises with Tesfaye and the need for absolute alcohol abstinence. Again advised an inpatient detox program but he declines Problem List - Problems (1) Alcohol-induced pancreatitis Code(s): K85.20 - ALCOHOL INDUCED ACUTE PANCREATITIS WITHOUT NECROSIS OR INFCT Qualifiers: Chronicity: acute Acute pancreatitis complication: unspecified Qualified Code(s): K85.20 - Alcohol induced acute pancreatitis without necrosis or infection (2) Leukocytosis Code(s): D72.829 - ELEVATED WHITE BLOOD CELL COUNT, UNSPECIFIED (3) Alcohol dependence, continuous drinking behavior Code(s): F10.20 - ALCOHOL DEPENDENCE, UNCOMPLICATED (4) Alcohol withdrawal Code(s): F10.239 - ALCOHOL DEPENDENCE WITH WITHDRAWAL, UNSPECIFIED
--- NOTE | 2018-10-20 11:41 | PN ---
Progress Note, Physician Chief Complaint: Pancreatitis ETOH abuse History of Present Illness: NAD denies any abd pain Tolerating regular diet Refuses inpatient program, wants to follow with outpatient program - Current Medication List Current Medications: Active Medications Chlordiazepoxide HCl (Librium -) 15 mg PO TID [facility] Stop: 10/21/18 08:00 Last Admin: 10/20/18 10:47 Dose: Not Given Chlordiazepoxide HCl (Librium -) 10 mg PO TID [facility] Stop: 10/22/18 08:00 Chlordiazepoxide HCl (Librium -) 5 mg PO TID [facility] Stop: 10/23/18 08:00 Chlordiazepoxide HCl (Librium -) 5 mg PO DAILY [facility] Folic Acid (Folic Acid Injection -) 0.4 mg SQ DAILY [facility] Last Admin: 10/19/18 14:42 Dose: 0.4 mg Heparin Sodium (Porcine) (Heparin -) 5,000 unit SQ BID [facility] Last Admin: 10/20/18 10:06 Dose: 5,000 unit Dextrose/Lactated Ringer's (D5-Lr -) 1,000 mls @ 200 mls/hr IV ASDIR [facility] Last Admin: 10/19/18 16:00 Dose: 200 mls/hr Ketorolac Tromethamine (Toradol Injection -) 15 mg IVPUSH Q6H PRN PRN Reason: PAIN LEVEL 6-10 Stop: 10/21/18 14:01 Last Admin: 10/20/18 10:04 Dose: 15 mg Lorazepam (Ativan Injection -) 1 mg IVPUSH TID PRN PRN Reason: ANXIETY Last Admin: 10/20/18 02:34 Dose: 1 mg Ondansetron HCl (Zofran Injection) 4 mg IVPB Q6H PRN PRN Reason: NAUSEA AND/OR VOMITING Last Admin: 10/18/18 20:34 Dose: 4 mg Pantoprazole Sodium (Protonix -) 40 mg PO DAILY [facility] Thiamine HCl (Vitamin B1 -) 100 mg PO DAILY [facility] - Objective Vital Signs: Vital Signs Temperature 97.6 F 10/20/18 09:00 Pulse Rate 77 10/20/18 09:00 Respiratory Rate 20 10/20/18 09:00 Blood Pressure 127/80 10/20/18 09:00 O2 Sat by Pulse Oximetry (%) 98 10/20/18 09:00 Constitutional: Yes: No Distress, Calm, Cachectic Cardiovascular: Yes: Regular Rate and Rhythm Respiratory: Yes: Regular Gastrointestinal: Yes: Normal Bowel Sounds, Soft Genitourinary: Yes: WNL Musculoskeletal: Yes: WNL Extremities: Yes: WNL Edema: No Peripheral Pulses WNL: Yes Neurological: Yes: Alert, Oriented Psychiatric: Yes: Alert, Oriented Labs: CBC, BMP 10/20/18 05:10 10/20/18 05:10 Assessment/Plan (1) Pancreatitis Assessment/Plan: -GI on board -IV hydration -advanced to regular diet by GI-tolerating well -pain control -CT scan shows large amount of peripancreatic fluid consistent with acute pancreatitis, no evidence of abscess or pseudocyst, additional free fluid in RLQ and pelvis Code(s): K85.90 - ACUTE PANCREATITIS WITHOUT NECROSIS OR INFECTION, UNSP (2) Alcohol dependence with uncomplicated withdrawal Assessment/Plan: -Detox and Psych consult placed -Thiamine, MVI, Folic Acid--when resume PO intake -Librium Q6H PRN outpatient for anxiety or withdrawal -Etoh level 101.9 -fall precaution Code(s): F10.230 - ALCOHOL DEPENDENCE WITH WITHDRAWAL, UNCOMPLICATED
[2018-10-20] MEDS ORDERED: IBUPROFEN 600 MG TABLET (FP) PO PRN (11:42)
[2018-10-20] MEDS ORDERED: DEXTROSE 5%-LACTATED RINGERS 1,000 ML IV SCH (11:44)
[2018-10-20] MEDS: FOLIC ACID 5 MG/1 ML SQ SCH (12:35)
[2018-10-20 14:13] VITALS: BMI 18.2
[2018-10-20 21:07] LABS: HEP A AB, IGM Negative (Negative); HEP B CORE AB, TOT Negative (Negative)
[2018-10-21] MEDS ORDERED: chlordiazePOXIDE HCL 10 MG CAPSULE PO SCH (08:00)
[2018-10-21] MEDS ORDERED: THIAMINE HCL 100 MG TABLET (FP) PO SCH (10:00)
[2018-10-21] MEDS ORDERED: PANTOPRAZOLE 40 MG TABLET (FP) PO SCH (10:00)
[2018-10-22] MEDS ORDERED: chlordiazePOXIDE 5 MG CAPSULE PO SCH (08:00)
[2018-10-23] MEDS ORDERED: chlordiazePOXIDE 5 MG CAPSULE PO SCH (08:00)
[2018-10-23 10:06] LABS: ALPHA 2 MACROGLOBULINS,QN 97 mg/dL (110-276); ALT(SGPT)P5P 16 IU/L (0-55); CHOLESTEROL TOTAL 123 mg/dL (100-199); GLUCOSE SERUM 94 mg/dL (65-99)
[2018-10-23 14:07] LABS: FIBROSIS SCORE- 0.03 (0.00-0.21); HEIGHT. 67 in (.); WEIGHT. 120 LBS (.)
== END 2018-10-20 17:16 | disposition home or self-care (01) | DRG 282 ==
LOC: JER 05:46 → JERBED 13:03 → JICU 22:01 → J4W 10-17 20:06
PROVIDERS: ADMIT Family Medicine; ATTEND Family Medicine
DX: K85.20 Alcohol induced acute pancreatitis without necrosis or infection (principal); R11.2 Nausea with vomiting, unspecified; R10.9 Unspecified abdominal pain; F10.20 Alcohol dependence, uncomplicated; D72.89 Other specified disorders of white blood cells; R10.13 Epigastric pain; K86.0 Alcohol-induced chronic pancreatitis; D64.9 Anemia, unspecified; F10.230 Alcohol dependence with withdrawal, uncomplicated; D72.829 Elevated white blood cell count, unspecified
CPT/HCPCS: 36415; 71046-TC-FY; 74177-TC; 80048; 80053; 80076; 80307; 82150; 82550; 82728; 83516; 83615; 83690; 83735; 84100; 84436; 84443; 84478; 84484; 85025; 85027; 86038; 86140; 86704; 86706; 86707; 86708; 86709; 86803; 87340; 93005; 93010; 99284-25; J1644; J7030

== ENCOUNTER 2018-12-26 14:03 | Inpatient (IN) | payer OTHER ==
[2018-12-26 18:51] VITALS: BMI 19.8
--- NOTE | 2018-12-26 20:16 | HP ---
"CIWA Score Nausea/Vomitin-No Nausea/No Vomiting Muscle Tremors: 4-Moderate,w/Arms Extend Anxiety: 4-Mod. Anxious/Guarded Agitation: 4-Moderately Restless Paroxysmal Sweats: 3 (Increased facial moisture) Orientation: 0-Oriented Tacttile Disturbances: 0-None Auditory Disturbances: 0-None Visual Disturbances: 0-None Headache: 0-None Present CIWA-Ar Total Score: 15 - Admission Criteria [facility] Guidelines: Admission for Medically Managed Detox: Requires at least one of the followin. CIWA greater than 12 2. Seizures within the past 24 hours 3. Delirium tremens within the past 24 hours 4. Hallucinations within the past 24 hours 5. Acute intervention needed for co occurring medical disorder 6. Acute intervention needed for co occurring psychiatric disorder 7. Severe withdrawal that cannot be handled at a lower level of care (continued vomiting, continued diarrhea, abnormal vital signs) requiring intravenous medication and/or fluids 8. Patient presents the following: CIWA greater than 12 Admission Criteria Met: Admission criteria met Admission ROS [facility] Chief Complaint: In withdrawal from alcohol. I need detox. Allergies/Adverse Reactions: Allergies Allergy/AdvReac Type Severity Reaction Status Date / Time No Known Allergies Allergy Verified 12/26/18 18:44 History of Present Illness: Multiple admissions for this 28 yo presents w/ alcohol withdrawal symptoms seeking detox. LILLIANA: 0.321 and currently 0.229 UTox: + MING/THC Alcohol use began at age [age]. Current use 1-2 pints/day. Cocaine use began at age 28. Current us x 6-8 months. Uses 1x/wk nasal. Marijuana use began at 16. Current use is daily and uses a total of 3 gms/week. Has smokes more in past. Denies nicotine use. Hx: blackouts - last 2 years ago. Denies seizures or overdoses. PMHx: Pancreatitis. CXR: 10/16/18: No acute pathology EK10/16/18 - NSR MHHx: Denies depression. Denies thoughts of harming self or others. SHx. Domiciled. Unemployed. Search Terms: Tesfaye Rodriguezzpatrick, 1990 Search Date: 12/26/2018 08:14:12 PM The Drug Utilization Report below displays all of the controlled substance prescriptions, if any, that your patient has filled in the last twelve months. The information displayed on this report is compiled from pharmacy submissions to the Department, and accurately reflects the information as submitted by the pharmacies. This report was requested by: Nayeli Browne | Reference #: [id number] Patient Name: Tesfaye Walton Date: 1990 Address: [address] [place] [address] Sex: Male Rx Written Rx Dispensed Drug Quantity Days Supply Prescriber Name 10/20/2018 10/23/2018 chlordiazepoxide 5 mg capsule 15 5 Trae Reyes Search Terms: Tesfaye Walton, 1990 Search Date: 12/26/2018 08:14:45 PM States Searched: [place], [place], [place], [place], [place], [place], [place], [place] The Drug Utilization Report below displays the controlled substance prescriptions, if any, that were dispensed in the indicated state(s). The information displayed on this report is compiled from requests submitted to other states' PMPs, and accurately reflects the information as returned by them. Blank rivera indicate data not provided by other state. This report was requested by: Nayeli Browne | Reference #: [id number] There are no results for the search terms that you entered. Exam Limitations: No Limitations - Ebola screening Have you traveled outside of the country in the last 21 days: No Have you had contact with anyone from an Ebola affected area: No Have you been sick,other than usual withdrawal symptoms: No Do you have a fever: No - Review of Systems Constitutional: Chills, Diaphoresis, Changes in sleep (Difficulty staying asleep.) EENT: reports: No Symptoms Reported Respiratory: reports: No Symptoms reported Cardiac: reports: No Symptoms Reported GI: reports: Indigestion (r/t pancreatitis) : reports: No Symptoms Reported Musculoskeletal: reports: No Symptoms Reported Integumentary: reports: Other (Scratches from cat) Neuro: reports: Tremors Endocrine: reports: Increased Thirst Hematology: reports: No Symptoms Reported Psychiatric: reports: Judgement Intact, Orientated x3, Agitated, Anxious Patient History - Patient Medical History Hx Anemia: Yes (not taking any iron supplement) Hx Asthma: No Hx Chronic Obstructive Pulmonary Disease (COPD): No Hx Cancer: No Hx Cardiac Disorders: No Hx Congestive Heart Failure: No Hx Hypertension: No Hx Hypercholesterolemia: No Hx Pacemaker: No HX Cerebrovascular Accident: No Hx Seizures: No Hx Dementia: No Hx Diabetes: No Hx Gastrointestinal Disorders: No Hx Liver Disease: No Hx Genitourinary Disorders: No Hx Sexually Transmitted Disorders: No Hx Renal Disease (ESRD): No Hx Thyroid Disease: No Hx Human Immunodeficiency Virus (HIV): No Hx Hepatitis C: No Hx Depression: Yes Hx Suicide Attempt: No (DENIES) Hx Bipolar Disorder: No Hx Schizophrenia: No - Patient Surgical History Past Surgical History: No Hx Neurologic Surgery: No Hx Cataract Extraction: No Hx Cardiac Surgery: No Hx Lung Surgery: No Hx Breast Surgery: No Hx Breast Biopsy: No Hx Abdominal Surgery: No Hx Appendectomy: No Hx Cholecystectomy: No Hx Genitourinary Surgery: No Hx Section: No Hx Orthopedic Surgery: No Anesthesia Reaction: No - PPD History Previous Implant?: Yes Documented Results: Negative w/proof Implanted On Prior R Admission?: Yes Date: 06/20/18 Results: 0 MM PPD to be Administered?: No - Smoking Cessation Smoking history: Never smoked Have you smoked in the past 12 months: No Hx Chewing Tobacco Use: No Initiated information on smoking cessation: No - Substance & Tx. History Hx Alcohol Use: Yes Hx Substance Use: Yes Substance Use Type: Alcohol, Marijuana Hx Substance Use Treatment: Yes (detox, rehab) - Substances abused Alcohol Substance route: Oral Frequency: Daily Amount used: 2pints of vodka/day Age of first use: 21 Date of last use: 12/26/18 Admission Physical Exam [facility] - Vital Signs Vital Signs: Vital Signs - 24 hr 12/26/18 18:47 Temperature 98.0 F Pulse Rate 111 H Respiratory 18 Rate Blood Pressure 157/87 - Physical General Appearance: Yes: Nourished, Mild Distress, Tremorous, Irritable, Sweating (Increased facial moisture), Anxious HEENTM: Yes: EOMI, Hearing grossly Normal, Normocephalic, Normal Voice, JEANNA ( Pupils = 2 mm), Pharynx Normal, Other (Perforated nasal septum) Respiratory: Yes: Lungs Clear, Normal Breath Sounds, No Respiratory Distress Neck: Yes: No masses,lesions,Nodules, Supple Breast: Yes: Breast Exam Deferred Cardiology: Yes: Regular Rhythm, Regular Rate, S1, S2 Abdominal: Yes: Non Tender, Flat, Soft, Increased Bowel Sounds Genitourinary: Yes: Within Normal Limits Back: Yes: Normal Inspection Musculoskeletal: Yes: full range of Motion, Gait Steady Extremities: Yes: Normal Capillary Refill, Tremors Neurological: Yes: coordinator cardiopulmonary services II-XII NML intact, Fully Oriented, Alert, Motor Strength 5/5 Integumentary: Yes: Normal Color, Warm, Other (Scattered scratch [place] on arms) Lymphatic: Yes: Within Normal Limits - Diagnostic (1) History of pancreatitis Current Visit: Yes Status: Chronic Comment: LAST LIPASE ON 10/20/18 = 3148 (2) Alcohol dependence with uncomplicated withdrawal Current Visit: Yes Status: Acute (3) Cocaine dependence, uncomplicated Current Visit: Yes Status: Chronic (4) Cannabis dependence, uncomplicated Current Visit: Yes Status: Chronic (5) Perforated nasal septum Current Visit: Yes Status: Chronic Cleared for Admission [facility] - Detox or Rehab [facility] Level of Care: Medically Managed Detox Regimen/Protocol: Librium Claeared for Rehab Admission: No Breathalyzer - Breathalyzer Breathalyzer: 0.321 Urine Drug Screen - Test Device Lot number: [id number] Expiration date: 08/29/20 - Control Is test valid?: Yes - Results Drug screen NEGATIVE: No Urine drug screen results: THC-Marijuana, MING-Cocaine Inpatient Rehab Admission - Rehab Decision to Admit Inpatient rehab admission?: No"
[2018-12-26] MEDS ORDERED: BISMUTH SUBSALICYLATE 524 MG/30 ML UD PO PRN (20:36)
[2018-12-26] MEDS ORDERED: MAG HYDROX/AL HYDROX/SIMETH 30 ML UNIT-DOSE CUP PO PRN (20:36)
[2018-12-26] MEDS ORDERED: MAGNESIUM CITRATE 300 ML BOTTLE PO PRN (20:36)
[2018-12-26] MEDS ORDERED: METHOCARBAMOL 500 MG TABLET PO PRN (20:36)
[2018-12-26] MEDS ORDERED: IBUPROFEN 400 MG TABLET (FP) PO PRN (20:36)
[2018-12-26] MEDS ORDERED: ACETAMINOPHEN 325 MG TABLET (FP) PO PRN ×2 (20:36)
[2018-12-26] MEDS ORDERED: MENTHOL/PHENOL 1 EACH UD MM PRN (20:36)
[2018-12-26] MEDS ORDERED: MAGNESIUM HYDROX 2400MG/30ML ORAL SUSPENSION 30 ML CUP PO PRN (20:36)
[2018-12-26] MEDS ORDERED: chlordiazePOXIDE HCL 25 MG CAPSULE PO ONE (21:00)
[2018-12-26] MEDS: traZODone HCL 50 MG TABLET (FP) PO SCH (21:49)
[2018-12-26] MEDS: MELATONIN 5 MG TABLETS PO PRN (21:51)
[2018-12-26] MEDS: THIAMINE HCL 100 MG TABLET (FP) PO SCH (21:53)
[2018-12-26] MEDS: chlordiazePOXIDE HCL 25 MG CAPSULE PO SCH (22:51)
[2018-12-27] MEDS: chlordiazePOXIDE HCL 25 MG CAPSULE PO PRN ×2 (02:49→12:42)
[2018-12-27] MEDS: chlordiazePOXIDE HCL 25 MG CAPSULE PO SCH ×4 (06:23→22:18)
[2018-12-27 10:27] LABS: ALBUMIN 3.6 g/dl (3.4-5.0); BILIRUBIN,TOTAL 0.7 mg/dL (0.2-1); BLOOD UREA NITROGEN 11.5 mg/dL (7-18); CALCIUM 8.7 mg/dL (8.5-10.1); CREATININE 0.9 mg/dL (0.55-1.3); HEMATOCRIT 38.2 % (35.4-49); HEMOGLOBIN 12.9 GM/dL (11.7-16.9); MCH 29.6 pg (25.7-33.7); MCHC 33.9 g/dl (32.0-35.9); MEAN CELL VOLUME 87.6 fl (80-96); MEAN PLT VOLUME 6.4 fl (7.5-11.1); PLATELET COUNT 270 K/MM3 (134-434); POTASSIUM 3.3 mmol/L (3.5-5.1); RBC 4.36 M/mm3 (4.00-5.60); RDW 13.8 % (11.9-15.9); TOT PROT 6.8 g/dl (6.4-8.2); WHITE BLOOD COUNT 7.6 K/mm3 (4.0-10.0)
[2018-12-27] MEDS: PRENATAL VITAMINS W/ FOLIC ACID TABLET (FP) PO SCH (10:30)
[2018-12-27] MEDS ORDERED: FLU VACCINE QUAD 60 MCG/0.5 ML (MDV 19-20) IM ONE (12:00)
[2018-12-27] MEDS ORDERED: POTASSIUM CHLORIDE TABS 20 MEQ TABLET.ER (FP) PO ONE (13:59)
--- NOTE | 2018-12-27 14:04 | PN ---
S CIWA - CIWA Score Nausea/Vomitin-No Nausea/No Vomiting Muscle Tremors: 2 Anxiety: 3 Agitation: 1-Slight > Activity Paroxysmal Sweats: 3 Orientation: 0-Oriented Tacttile Disturbances: 0-None Auditory Disturbances: 0-None Visual Disturbances: 0-None Headache: 2-Mild CIWA-Ar Total Score: 11 S Progress Note (SOAP) Subjective: c/o interrupted sleep, anxiety, headache, and sweats. Objective: 12/27/18 14:00 Vital Signs 12/27/18 12/27/18 07:29 09:53 Temperature 97.7 F 98.1 F Pulse Rate 77 75 Respiratory 18 18 Rate Blood Pressure 121/71 112/75 Lab Results WBC 7.6 K/mm3 (4.0-10.0) 12/27/18 07:40 RBC 4.36 M/mm3 (4.00-5.60) 12/27/18 07:40 Hgb 12.9 GM/dL (11.7-16.9) 12/27/18 07:40 Hct 38.2 % (35.4-49) 12/27/18 07:40 MCV 87.6 fl (80-96) 12/27/18 07:40 MCHC 33.9 g/dl (32.0-35.9) 12/27/18 07:40 RDW 13.8 % (11.9-15.9) D 12/27/18 07:40 Plt Count 270 K/MM3 (134-434) 12/27/18 07:40 Sodium 138 mmol/L (136-145) 12/27/18 07:40 Potassium 3.3 mmol/L (3.5-5.1) L 12/27/18 07:40 Chloride 99 mmol/L (98-107) 12/27/18 07:40 Carbon Dioxide 31 mmol/L (21-32) 12/27/18 07:40 Anion Gap 8 MMOL/L (8-16) 12/27/18 07:40 BUN 11.5 mg/dL (7-18) 12/27/18 07:40 Creatinine 0.9 mg/dL (0.55-1.3) 12/27/18 07:40 Random Glucose 87 mg/dL (74-106) 12/27/18 07:40 Calcium 8.7 mg/dL (8.5-10.1) 12/27/18 07:40 Labs noted. K+ is 3.3 Assessment: 12/27/18 14:01 Pt is alert and oriented x3 and in no acute respiratory distress. Full ROM, ambulating in the unit. Withdrawal symptoms. K+ is 3.3 Plan: continue detox. Potassium chloride 40meq po x1 dose now. Repeat potassium level in AM.
[2018-12-27] MEDS: hydrOXYzine PAMOATE 25 MG CAPSULE (FP) PO PRN ×2 (15:13→22:18)
[2018-12-27 20:05] LABS: URINE APPEARANCE CLEAR; URINE BILIRUBIN NEGATIVE (NEGATIVE); URINE COLOR DK YELLOW; URINE GLUCOSE (UA) NEGATIVE (NEGATIVE); URINE KETONE NEGATIVE (NEGATIVE); URINE LEUK ESTERASE NEGATIVE (NEGATIVE); URINE NITRITE NEGATIVE (NEGATIVE); URINE PROTEIN TRACE (NEGATIVE)
[2018-12-27] MEDS: THIAMINE HCL 100 MG TABLET (FP) PO SCH (22:18)
[2018-12-27] MEDS: traZODone HCL 50 MG TABLET (FP) PO SCH (22:18)
[2018-12-27] MEDS: MELATONIN 5 MG TABLETS PO PRN (22:18)
[2018-12-28] MEDS: chlordiazePOXIDE HCL 25 MG CAPSULE PO SCH ×2 (05:55→10:42)
[2018-12-28] MEDS: hydrOXYzine PAMOATE 25 MG CAPSULE (FP) PO PRN (05:57)
[2018-12-28] MEDS: PRENATAL VITAMINS W/ FOLIC ACID TABLET (FP) PO SCH (10:42)
[2018-12-28 12:05] VITALS: BP 141/72; PULSE 77; TEMP 97.5
--- NOTE | 2018-12-28 16:19 | DS ---
[facility] Detox Discharge Summary Admission Date: 12/26/18 Discharge Date: 12/28/18 - History Present History: Alcohol Dependence, Cannabis Dependence, Cocaine Dependence Additional Comments: Patient requested to be discharged tomorrow. Patient made aware that his protocol doesn't end until 12/31 but he might be able to leave 12/30 instead. Patient insisted that he's leaving AMA today if he can't be discharged tomorrow. Patient later demanded to leave AMA. Patient instructed to call 911 [facility] if feeling sick or withdrawal sxs and to see his PCP within 3 days in which he verbalized understanding. Pertinent Past History: Anemia Alcohol dependence Cocaine use disorder Cannabis use disorder Depression - Physical Exam Results Vital Signs: Vital Signs Temperature 97.5 F L 12/28/18 12:04 Pulse Rate 77 12/28/18 12:04 Respiratory Rate 18 12/28/18 12:04 Blood Pressure 141/72 12/28/18 12:04 O2 Sat by Pulse Oximetry (%) Pertinent Admission Physical Exam Findings: Withdrawal sxs Laboratory Tests 12/27/18 12/27/18 12/27/18 07:40 07:40 07:40 WBC 7.6 RBC 4.36 Hgb 12.9 Hct 38.2 MCV 87.6 MCH 29.6 MCHC 33.9 RDW 13.8 D Plt Count 270 MPV 6.4 L D Sodium 138 Potassium 3.3 L Chloride 99 Carbon Dioxide 31 Anion Gap 8 BUN 11.5 Creatinine 0.9 Est GFR (CKD-EPI)AfAm 133.30 Est GFR (CKD-EPI)NonAf 115.01 Random Glucose 87 Calcium 8.7 Total Bilirubin 0.7 AST 13 L ALT 16 Alkaline Phosphatase 90 Total Protein 6.8 Albumin 3.6 Total Amylase 67 Lipase 154 Urine Color Urine Appearance Urine pH Ur Specific [place] Urine Protein Urine Glucose (UA) Urine Ketones Urine Blood Urine Nitrite Urine Bilirubin Urine Urobilinogen Ur Leukocyte Esterase RPR Titer Nonreactive HIV 1&2 Antibody Screen HIV P24 Antigen 12/27/18 12/27/18 12/28/18 07:40 19:00 07:30 WBC RBC Hgb Hct MCV MCH MCHC RDW Plt Count MPV Sodium Potassium 4.4 Chloride Carbon Dioxide Anion Gap BUN Creatinine Est GFR (CKD-EPI)AfAm Est GFR (CKD-EPI)NonAf Random Glucose Calcium Total Bilirubin AST ALT Alkaline Phosphatase Total Protein Albumin Total Amylase Lipase Urine Color Dk yellow Urine Appearance Clear Urine pH 7.0 Ur Specific [place] 1.030 Urine Protein Trace Urine Glucose (UA) Negative Urine Ketones Negative Urine Blood Negative Urine Nitrite Negative Urine Bilirubin Negative Urine Urobilinogen 1.0 Ur Leukocyte Esterase Negative RPR Titer HIV 1&2 Antibody Screen Negative HIV P24 Antigen Negative Labs reviewed - Medication Discharge Medications: Ambulatory Orders NK [No Known Home Medication] 12/26/18 - Diagnosis (1) Anemia Status: Chronic Qualifiers: Anemia type: iron deficiency (2) Depression Status: Chronic (3) Alcohol dependence with uncomplicated withdrawal Status: Acute (4) Cannabis dependence, uncomplicated Status: Chronic (5) Cocaine dependence, uncomplicated Status: Chronic - AMA Did Patient Leave Against Medical Advice: Yes (Instructed to call 911 [facility] if sick/withdrawal sxs)
[2018-12-29] MEDS ORDERED: chlordiazePOXIDE HCL 10 MG CAPSULE PO PRN
[2018-12-29] MEDS ORDERED: chlordiazePOXIDE HCL 10 MG CAPSULE PO SCH (05:00)
[2018-12-30] MEDS ORDERED: chlordiazePOXIDE HCL 10 MG CAPSULE PO SCH (05:00)
[2018-12-31] MEDS ORDERED: chlordiazePOXIDE HCL 10 MG CAPSULE PO ONE (05:00)
== END 2018-12-28 12:28 | disposition left against medical advice (07) | DRG 770 ==
LOC: YASAS 14:03 → Y6N 20:47
PROVIDERS: ADMIT Surgery; ATTEND Surgery
PROC: HZ2ZZZZ Detoxification Services for Substance Abuse Treatment (ICD-10-PCS; principal; 2018-12-26)
DX: F10.230 Alcohol dependence with withdrawal, uncomplicated (principal); F14.20 Cocaine dependence, uncomplicated; F12.20 Cannabis dependence, uncomplicated; F32.9 Major depressive disorder, single episode, unspecified; D50.9 Iron deficiency anemia, unspecified; Z87.19 Personal history of other diseases of the digestive system
CPT/HCPCS: 36415; 80053; 81003; 82150; 83690; 84132; 85027; 86593; 87389; G0008; Q2036

== ENCOUNTER 2020-04-02 23:48 | Inpatient (IN) | payer OTHER ==
[2020-04-03] MEDS ORDERED: MAG HYDROX/AL HYDROX/SIMETH 30 ML UNIT-DOSE CUP PO PRN (00:05)
[2020-04-03] MEDS ORDERED: chlordiazePOXIDE HCL 25 MG CAPSULE PO ONE (00:05)
[2020-04-03] MEDS ORDERED: MAGNESIUM HYDROX 2400MG/30ML ORAL SUSPENSION 30 ML CUP PO PRN (00:05)
[2020-04-03] MEDS ORDERED: MAGNESIUM CITRATE 300 ML BOTTLE PO PRN (00:05)
[2020-04-03] MEDS ORDERED: ACETAMINOPHEN 325 MG TABLET (FP) PO PRN (00:05)
[2020-04-03] MEDS ORDERED: ONDANSETRON *ODT* 4 MG TABLET SL PRN (00:05)
[2020-04-03] MEDS ORDERED: chlordiazePOXIDE HCL 25 MG CAPSULE PO PRN (00:05)
[2020-04-03] MEDS ORDERED: BISMUTH SUBSALICYLATE 524 MG/30 ML UD PO PRN (00:05)
[2020-04-03] MEDS ORDERED: MENTHOL/PHENOL 1 EACH UD MM PRN (00:05)
[2020-04-03 00:10] VITALS: BMI 19.0
[2020-04-03] MEDS: hydrOXYzine PAMOATE 25 MG CAPSULE (FP) PO PRN (01:29)
[2020-04-03] MEDS: chlordiazePOXIDE HCL 25 MG CAPSULE PO SCH ×4 (06:28→22:12)
[2020-04-03] MEDS: PRENATAL VITAMINS W/ FOLIC ACID TABLET (FP) PO SCH (10:22)
[2020-04-03 11:07] LABS: HEMATOCRIT 42.5 % (35.4-49); HEMOGLOBIN 14.3 GM/dL (11.7-16.9); MCH 29.6 pg (25.7-33.7); MCHC 33.7 g/dl (32.0-35.9); MEAN CELL VOLUME 87.7 fl (80-96); MEAN PLT VOLUME 6.9 fl (7.5-11.1); PLATELET COUNT 272 K/MM3 (134-434); RBC 4.85 M/mm3 (4.00-5.60); RDW 13.4 % (11.9-15.9); WHITE BLOOD COUNT 11.3 K/mm3 (4.0-10.0)
[2020-04-03 11:11] LABS: POTASSIUM 3.9 mmol/L (3.5-5.1)
[2020-04-03 11:14] LABS: CALCIUM 8.7 mg/dL (8.5-10.1)
[2020-04-03 11:16] LABS: ALBUMIN 3.6 g/dl (3.4-5.0)
[2020-04-03 11:21] LABS: BILIRUBIN,TOTAL 0.8 mg/dL (0.2-1); TOT PROT 7.2 g/dl (6.4-8.2)
[2020-04-03] MEDS ORDERED: MELATONIN 5 MG TABLETS PO SCH (22:00)
[2020-04-03] MEDS ORDERED: SUVOREXANT 10 MG TABLET PO PRN (22:00)
[2020-04-03] MEDS: THIAMINE HCL 100 MG TABLET (FP) PO SCH (22:12)
[2020-04-03] MEDS: ACETAMINOPHEN 325 MG TABLET (FP) PO PRN (22:13)
[2020-04-04] MEDS: chlordiazePOXIDE HCL 25 MG CAPSULE PO SCH ×4 (05:39→22:29)
[2020-04-04] MEDS: BACITRACIN 0.9 GM PACKET TP SCH (10:08)
[2020-04-04] MEDS: PRENATAL VITAMINS W/ FOLIC ACID TABLET (FP) PO SCH (10:09)
[2020-04-04] MEDS: hydrOXYzine PAMOATE 25 MG CAPSULE (FP) PO PRN ×3 (14:38→22:29)
[2020-04-04] MEDS: METHOCARBAMOL 500 MG TABLET PO PRN ×2 (16:12→22:32)
[2020-04-04] MEDS: IBUPROFEN 400 MG TABLET (FP) PO PRN (19:01)
[2020-04-04] MEDS: THIAMINE HCL 100 MG TABLET (FP) PO SCH (22:29)
[2020-04-05] MEDS ORDERED: chlordiazePOXIDE HCL 10 MG CAPSULE PO PRN
[2020-04-05] MEDS: chlordiazePOXIDE HCL 10 MG CAPSULE PO SCH ×4 (05:38→22:24)
[2020-04-05] MEDS: hydrOXYzine PAMOATE 25 MG CAPSULE (FP) PO PRN ×3 (05:39→22:25)
[2020-04-05] MEDS: METHOCARBAMOL 500 MG TABLET PO PRN ×3 (05:39→22:25)
[2020-04-05] MEDS: PRENATAL VITAMINS W/ FOLIC ACID TABLET (FP) PO SCH (10:30)
[2020-04-05] MEDS: ACETAMINOPHEN 325 MG TABLET (FP) PO PRN (10:31)
[2020-04-05] MEDS: BACITRACIN 0.9 GM PACKET TP SCH (10:31)
[2020-04-05 10:49] LABS: BASO % 0.6 % (0-2.0); EOS % 1.1 % (0-4.5); HEMATOCRIT 41.1 % (35.4-49); HEMOGLOBIN 13.8 GM/dL (11.7-16.9); LYMPH % 25.4 % (8-40); MCH 29.9 pg (25.7-33.7); MCHC 33.7 g/dl (32.0-35.9); MEAN CELL VOLUME 88.7 fl (80-96); MONO % 10.8 % (3.8-10.2); NEUT % 62.1 % (42.8-82.8); PLATELET COUNT 269 K/MM3 (134-434); RBC 4.63 M/mm3 (4.00-5.60); RDW 13.8 % (11.9-15.9); WHITE BLOOD COUNT 11.4 K/mm3 (4.0-10.0)
[2020-04-05] MEDS ORDERED: [UNRECOGNIZED DRUG - OTHER] PO PRN (22:06)
[2020-04-05] MEDS ORDERED: CALCIUM CARBONATE PO PRN (22:06)
[2020-04-05] MEDS ORDERED: PANTOPRAZOLE 40 MG TABLET PO PRN (22:06)
[2020-04-05] MEDS ORDERED: SIMETHICONE PO PRN (22:06)
[2020-04-05] MEDS ORDERED: FAMOTIDINE 20 MG TABLET PO PRN (22:06)
[2020-04-05] MEDS: THIAMINE HCL 100 MG TABLET (FP) PO SCH (22:24)
[2020-04-06] MEDS: hydrOXYzine PAMOATE 25 MG CAPSULE (FP) PO PRN ×4 (03:42→17:29)
[2020-04-06] MEDS: ACETAMINOPHEN 325 MG TABLET (FP) PO PRN ×2 (03:42→13:57)
[2020-04-06] MEDS: chlordiazePOXIDE HCL 10 MG CAPSULE PO SCH ×2 (04:06→17:28)
[2020-04-06] MEDS: METHOCARBAMOL 500 MG TABLET PO PRN ×3 (04:48→17:57)
[2020-04-06] MEDS: IBUPROFEN 400 MG TABLET (FP) PO PRN (06:26)
[2020-04-06] MEDS: BACITRACIN 0.9 GM PACKET TP SCH (09:10)
[2020-04-06] MEDS: PRENATAL VITAMINS W/ FOLIC ACID TABLET (FP) PO SCH (09:10)
[2020-04-06 19:20] VITALS: BP 136/86; PULSE 105; TEMP 98.4
[2020-04-06] MEDS ORDERED: SUVOREXANT 10 MG TABLET PO PRN (22:00)
[2020-04-07] MEDS ORDERED: chlordiazePOXIDE HCL 10 MG CAPSULE PO ONE (05:00)
== END 2020-04-06 19:55 | disposition home or self-care (01) | DRG 774 ==
LOC: YASAS 23:48 → Y3N 04-03 00:08
PROVIDERS: ADMIT Allergy & Immunology; ATTEND Allergy & Immunology
PROC: HZ2ZZZZ Detoxification Services for Substance Abuse Treatment (ICD-10-PCS; principal; 2020-04-02)
DX: F10.230 Alcohol dependence with withdrawal, uncomplicated (principal); F14.20 Cocaine dependence, uncomplicated; F12.20 Cannabis dependence, uncomplicated; F19.282 Other psychoactive substance dependence with psychoactive substance-induced sleep disorder; D50.9 Iron deficiency anemia, unspecified; K86.0 Alcohol-induced chronic pancreatitis; R07.89 Other chest pain; I45.10 Unspecified right bundle-branch block; Z56.0 Unemployment, unspecified; S61.012A Laceration without foreign body of left thumb without damage to nail, initial encounter; X58.XXXA Exposure to other specified factors, initial encounter; Y93.9 Activity, unspecified; Y92.230 Patient room in hospital as the place of occurrence of the external cause; Y99.8 Other external cause status
CPT/HCPCS: 36415; 80053; 85025; 85027; 86780; 93005; 93010; C9803; U0003

== ENCOUNTER 2020-04-05 12:46 | Emergency (ER) | payer OTHER ==
[2020-04-05 13:06] VITALS: BMI 23.6
[2020-04-05] MEDS ORDERED: ACETAMINOPHEN 1000 MG/100 ML BAG IVPB ONE (14:00)
[2020-04-05] MEDS ORDERED: ONDANSETRON 4 MG/2 ML VIAL IVPUSH ONE (14:01)
[2020-04-05] MEDS ORDERED: ACETAMINOPHEN INJECTION 100 ML IVPB ONE (14:32)
[2020-04-05] MEDS ORDERED: ONDANSETRON 4 MG/2 ML VIAL ONE (14:33)
[2020-04-05] MEDS ORDERED: SODIUM CHLORIDE 1,000 ML IV STA (14:36)
[2020-04-05 14:58] LABS: BASO % 0.5 % (0-2.0); EOS % 0.6 % (0-4.5); HEMATOCRIT 42.9 % (35.4-49); HEMOGLOBIN 14.2 GM/dL (11.7-16.9); LYMPH % 14.9 % (8-40); MCH 29.3 pg (25.7-33.7); MCHC 33.1 g/dl (32.0-35.9); MEAN CELL VOLUME 88.4 fl (80-96); MEAN PLT VOLUME 6.7 fl (7.5-11.1); MONO % 9.5 % (3.8-10.2); NEUT % 74.5 % (42.8-82.8); PLATELET COUNT 286 K/MM3 (134-434); RBC 4.85 M/mm3 (4.00-5.60); RDW 13.5 % (11.9-15.9)
[2020-04-05 15:12] LABS: CHLORIDE 103 mmol/L (98-107); SODIUM 141 mmol/L (136-145)
[2020-04-05 15:14] LABS: ANION GAP 5 MMOL/L (8-16); CALCIUM 9.5 mg/dL (8.5-10.1); CO2 33 mmol/L (21-32); GLUCOSE,RANDOM 123 mg/dL (74-106); LIPASE 149 U/L (73-393)
[2020-04-05 15:15] LABS: ALBUMIN 3.6 g/dl (3.4-5.0); BLOOD UREA NITROGEN 16.8 mg/dL (7-18)
[2020-04-05 15:17] LABS: CREATININE 0.9 mg/dL (0.55-1.3); SGPT/ALT 25 U/L (13-61)
[2020-04-05 15:18] LABS: SGOT/AST 12 U/L (15-37)
[2020-04-05 15:19] LABS: BILIRUBIN,TOTAL 0.3 mg/dL (0.2-1); TOT PROT 7.2 g/dl (6.4-8.2)
[2020-04-05 15:20] LABS: ALK PHOS 103 U/L (45-117)
[2020-04-05] MEDS ORDERED: KETOROLAC TROMETHAMINE 30 MG/1 ML VIAL IVPUSH ONE (15:41)
[2020-04-05] MEDS ORDERED: morphine CARPU-JECT 4 MG/1 ML DISP.SYRIN IVPUSH ONE (15:41)
[2020-04-05] MEDS ORDERED: FAMOTIDINE 20 MG/50 ML IVPB 20 MG/50 ML MG IVPB ONE ×2 (15:43→15:52)
[2020-04-05] MEDS ORDERED: SUCRALFATE 1 GM/10 ML UNIT DOSE CUPS PO ONE (15:43)
[2020-04-05] MEDS ORDERED: MAG HYDROX/AL HYDROX/SIMETH -MYLANTA- ORAL SUSPENSION PO ONE (15:43)
[2020-04-05] MEDS ORDERED: morphine SULFATE 4 MG/ML VIAL ONE (15:51)
[2020-04-05] MEDS ORDERED: SUCRALFATE 1 GM TABLET (FP) ONE (15:51)
[2020-04-05] MEDS ORDERED: MAG HYDROX/AL HYDROX/SIMETH 30 ML UNIT-DOSE CUP ONE (15:51)
[2020-04-05] MEDS ORDERED: LORazepam 2 MG/ML SDV VIAL IVPB ONE (16:21)
[2020-04-05] MEDS ORDERED: LORazepam 2 MG/ML SDV VIAL ONE (16:25)
[2020-04-05 20:51] VITALS: BP 112/75; PULSE 78; TEMP 98
== END 2020-04-05 21:03 | disposition home or self-care (01) ==
LOC: JER 12:46
PROC: 3E0333Z Introduction of Anti-inflammatory into Peripheral Vein, Percutaneous Approach (ICD-10-PCS; principal; 2020-04-05)
PROC: 3E033GC Introduction of Other Therapeutic Substance into Peripheral Vein, Percutaneous Approach (ICD-10-PCS; 2020-04-05)
PROC: 3E033GC Introduction of Other Therapeutic Substance into Peripheral Vein, Percutaneous Approach (ICD-10-PCS; 2020-04-05)
PROC: 3E033NZ Introduction of Analgesics, Hypnotics, Sedatives into Peripheral Vein, Percutaneous Approach (ICD-10-PCS; 2020-04-05)
PROC: 3E033NZ Introduction of Analgesics, Hypnotics, Sedatives into Peripheral Vein, Percutaneous Approach (ICD-10-PCS; 2020-04-05)
PROC: 3E033GC Introduction of Other Therapeutic Substance into Peripheral Vein, Percutaneous Approach (ICD-10-PCS; 2020-04-05)
PROC: 3E0337Z Introduction of Electrolytic and Water Balance Substance into Peripheral Vein, Percutaneous Approach (ICD-10-PCS; 2020-04-05)
DX: R10.13 Epigastric pain (principal); R07.9 Chest pain, unspecified
CPT/HCPCS: 36415; 71046-TC-FY; 74177-TC; 80053; 83690; 84484; 85025; 93005; 93010; 99285-25; J0131; Q9967

== ENCOUNTER 2021-04-20 01:35 | Inpatient (IN) | payer OTHER ==
[2021-04-20] MEDS ORDERED: LORazepam 2 MG/ML SDV VIAL IVPUSH ONE ×2 (01:48→03:59)
[2021-04-20] MEDS ORDERED: chlordiazePOXIDE HCL 25 MG CAPSULE PO ONE ×2 (01:48→03:59)
[2021-04-20] MEDS ORDERED: chlordiazePOXIDE HCL 25 MG CAPSULE ONE ×2 (02:03→04:29)
[2021-04-20 02:47] LABS: BASO % 0.5 % (0-2.0); EOS % 0.1 % (0-4.5); HEMATOCRIT 46.2 % (35.4-49); HEMOGLOBIN 15.9 GM/dL (11.7-16.9); LYMPH % 6.3 % (8-40); MCH 31.1 pg (25.7-33.7); MCHC 34.4 g/dl (32.0-35.9); MEAN CELL VOLUME 90.2 fl (80-96); MEAN PLT VOLUME 6.6 fl (7.5-11.1); MONO % 6.3 % (3.8-10.2); NEUT % 86.8 % (42.8-82.8); PLATELET COUNT 374 10^3/uL (134-434); RBC 5.12 M/mm3 (4.00-5.60); RDW 14.8 % (11.9-15.9); WHITE BLOOD COUNT 15.4 K/mm3 (4.0-10.0)
[2021-04-20 03:13] LABS: CHLORIDE 93 mmol/L (98-107); SODIUM 135 mmol/L (136-145)
[2021-04-20 03:14] LABS: ALBUMIN 4.1 g/dl (3.4-5.0); ANION GAP 14 MMOL/L (8-16); BLOOD UREA NITROGEN 7.8 mg/dL (7-18); CO2 28 mmol/L (21-32)
[2021-04-20 03:15] LABS: GLUCOSE,RANDOM 177 mg/dL (74-106); MAGNESIUM 2.3 mg/dL (1.8-2.4)
[2021-04-20 03:17] LABS: SGOT/AST 133 U/L (15-37); SGPT/ALT 112 U/L (13-61)
[2021-04-20 03:19] LABS: CREATININE 1.3 mg/dL (0.55-1.3); PHOSPHOROUS 2.4 mg/dL (2.5-4.9)
[2021-04-20 03:20] LABS: ALK PHOS 142 U/L (45-117); BILIRUBIN,TOTAL 1.2 mg/dL (0.2-1); TOT PROT 8.2 g/dl (6.4-8.2)
[2021-04-20] MEDS ORDERED: POTASSIUM CHLORIDE ORAL LIQUID 20 MEQ/15 ML PO ONE (03:32)
[2021-04-20] MEDS ORDERED: LACTATED RINGERS SOLUTION 1,000 ML/1,000 ML INFUS.BAG IV ONE (03:38)
[2021-04-20] MEDS ORDERED: POTASSIUM CHLORIDE ORAL LIQUID 20 MEQ/15 ML ONE (03:49)
[2021-04-20 06:09] LABS: EPI CELLS 14 /uL (0-25.1); HYALINE CASTS 4 /uL (0-3.1); URINE APPEARANCE TURBID; URINE BACTERIA 7 /uL (0-1359); URINE BILIRUBIN NEGATIVE (NEGATIVE); URINE COLOR YELLOW; URINE GLUCOSE (UA) NEGATIVE (NEGATIVE); URINE KETONE TRACE (NEGATIVE); URINE LEUK ESTERASE NEGATIVE (NEGATIVE); URINE NITRITE NEGATIVE (NEGATIVE); URINE PROTEIN 1+ (NEGATIVE); URINE RBC 2 /uL (0-23.9); URINE UROBILINOGEN 0.2 mg/dL (0.2-1.0); URINE WBC 34 /uL (0-25.8)
[2021-04-20] MEDS ORDERED: FOLIC ACID INJECTION - 1 MG, THIAMINE HCL 100 MG, MULTIVIT INJECTION ADULT 10 ML in SOD... IVPB ONE (06:09)
[2021-04-20 06:10] LABS: COCAINE, UR NEGATIVE (NEGATIVE); OPIATES, URI NEGATIVE (NEGATIVE); PHENCYCLIDINE,URINE NEGATIVE (NEGATIVE); URINE BARBITURATES NEGATIVE (NEGATIVE)
[2021-04-20 06:11] LABS: URINE AMPHETAMINES NEGATIVE (NEGATIVE)
[2021-04-20] MEDS ORDERED: ONDANSETRON 4 MG/2 ML VIAL IVPUSH PRN (06:15)
[2021-04-20] MEDS ORDERED: KCL 10 MEQ IVPB 10 MEQ/100 ML INFUS.BAG IVPB SCH (06:15)
[2021-04-20 06:22] LABS: METHADONE, UR NEGATIVE (NEGATIVE); URINE BENZODIAZEPINES POSITIVE (NEGATIVE)
[2021-04-20] MEDS ORDERED: PIPERACILLIN/TAZOB 3.375 GM 3.375 GM/50 ML BAG IVPB ONE ×3 (06:36→18:35)
[2021-04-20] MEDS ORDERED: NAPH,MB-DB/K PH,MBDB POWDER PACKET PO ONE (06:46)
[2021-04-20] MEDS: PIPERACILLIN/TAZOB 3.375 GM 3.375 GM in DEXTROSE 5%-WATER - 50 ML IVPB SCH ×3 (06:57→18:46)
[2021-04-20 08:01] LABS: ALBUMIN 3.5 g/dl (3.4-5.0); BLOOD UREA NITROGEN 8.2 mg/dL (7-18); CALCIUM 9.2 mg/dL (8.5-10.1); MAGNESIUM 2.3 mg/dL (1.8-2.4)
[2021-04-20 08:03] LABS: CREATININE 1.1 mg/dL (0.55-1.3)
[2021-04-20 08:05] LABS: BILIRUBIN,TOTAL 1.3 mg/dL (0.2-1); PHOSPHOROUS 3.7 mg/dL (2.5-4.9); TOT PROT 6.9 g/dl (6.4-8.2)
[2021-04-20] MEDS ORDERED: NAPH,MB-DB/K PH,MBDB POWDER PACKET ONE (12:04)
[2021-04-20] MEDS ORDERED: POTASSIUM CHLORIDE TABS 20 MEQ TABLET.ER (FP) PO ONE (12:04)
[2021-04-20] MEDS ORDERED: LORazepam 1 MG TABLET ONE ×3 (12:04→17:49)
[2021-04-20] MEDS ORDERED: KCL 10 MEQ IVPB 10 MEQ/100 ML INFUS.BAG IVPB ONE (12:05)
[2021-04-20] MEDS ORDERED: ENOXAPARIN NA (PORCINE) 40 MG/0.4 ML DISP.SYRIN SQ ONE (12:05)
[2021-04-20] MEDS: FOLIC ACID 1 MG TABLET (FP) PO SCH (12:08)
[2021-04-20] MEDS: POTASSIUM CHLORIDE TABS 20 MEQ TABLET.ER (FP) PO SCH (12:08)
[2021-04-20] MEDS: ENOXAPARIN NA (PORCINE) 40 MG/0.4 ML DISP.SYRIN SQ SCH (12:09)
[2021-04-20] MEDS: THIAMINE HCL 200 MG/2 ML VIAL IVPB SCH (12:09)
[2021-04-20] MEDS: LORazepam 1 MG TABLET PO SCH ×3 (12:10→22:59)
[2021-04-20 14:02] LABS: BASO % 0.3 % (0-2.0); EOS % 0.5 % (0-4.5); HEMATOCRIT 41.7 % (35.4-49); HEMOGLOBIN 14.3 GM/dL (11.7-16.9); LYMPH % 14.5 % (8-40); MCH 31.2 pg (25.7-33.7); MCHC 34.4 g/dl (32.0-35.9); MEAN CELL VOLUME 90.9 fl (80-96); MEAN PLT VOLUME 6.7 fl (7.5-11.1); MONO % 9.1 % (3.8-10.2); NEUT % 75.6 % (42.8-82.8); PLATELET COUNT 288 10^3/uL (134-434); RBC 4.58 M/mm3 (4.00-5.60); RDW 14.8 % (11.9-15.9); WHITE BLOOD COUNT 10.9 K/mm3 (4.0-10.0)
[2021-04-20] MEDS: SODIUM CHLORIDE 1,000 ML IV SCH ×2 (15:45→23:13)
[2021-04-20] MEDS ORDERED: LIDOCAINE 5% TOPICAL PATCH TP ONE (21:10)
[2021-04-21] MEDS ORDERED: MELATONIN 5 MG TABLETS PO ONE (00:38)
[2021-04-21] MEDS ORDERED: KETOROLAC TROMETHAMINE 15 MG/ML VIAL IVPUSH ONE (00:40)
[2021-04-21] MEDS ORDERED: PIPERACILLIN/TAZOB 3.375 GM 3.375 GM in DEXTROSE 5%-WATER - 50 ML IVPB SCH (02:00)
[2021-04-21] MEDS: LORazepam 1 MG TABLET PO SCH (05:36)
[2021-04-21] MEDS: ENOXAPARIN NA (PORCINE) 40 MG/0.4 ML DISP.SYRIN SQ SCH (09:14)
[2021-04-21] MEDS: POTASSIUM CHLORIDE TABS 20 MEQ TABLET.ER (FP) PO SCH (09:14)
[2021-04-21] MEDS: FOLIC ACID 1 MG TABLET (FP) PO SCH (09:14)
[2021-04-21] MEDS: THIAMINE HCL 200 MG/2 ML VIAL IVPB SCH (09:23)
[2021-04-21] MEDS: LORazepam 1 MG TABLET PO PRN (09:32)
[2021-04-21] MEDS ORDERED: SODIUM CHLORIDE 1,000 ML IV SCH (09:33)
[2021-04-21] MEDS: LIDOCAINE PATCH REMOVAL MC SCH (09:33)
[2021-04-21] MEDS: LACTATED RINGERS SOLUTION 1,000 ML/1,000 ML INFUS.BAG IV SCH ×2 (10:32→22:00)
[2021-04-21 12:22] LABS: BASO % 0.6 % (0-2.0); EOS % 0.9 % (0-4.5); HEMATOCRIT 38.8 % (35.4-49); LYMPH % 29.9 % (8-40); MCH 31.2 pg (25.7-33.7); MCHC 33.6 g/dl (32.0-35.9); MEAN PLT VOLUME 6.9 fl (7.5-11.1); MONO % 6.7 % (3.8-10.2); NEUT % 61.9 % (42.8-82.8); PLATELET COUNT 249 10^3/uL (134-434); RBC 4.17 M/mm3 (4.00-5.60); RDW 14.5 % (11.9-15.9); WHITE BLOOD COUNT 8.8 K/mm3 (4.0-10.0)
[2021-04-21] MEDS ORDERED: PANTOPRAZOLE SODIUM 40 MG VIAL IVPUSH SCH (12:30)
[2021-04-21 12:50] LABS: LIPASE 470 U/L (73-393)
[2021-04-21 12:52] LABS: TRIGLYCERIDES 137 mg/dL (0-150)
[2021-04-21] MEDS: morphine SULFATE 4 MG/ML VIAL IVPUSH PRN ×3 (14:00→23:00)
[2021-04-21] MEDS: PANTOPRAZOLE SODIUM 40 MG VIAL IVPUSH SCH (14:05)
[2021-04-21 14:11] LABS: BLOOD UREA NITROGEN 7.8 mg/dL (7-18); CREATININE 0.9 mg/dL (0.55-1.3); GLUCOSE,RANDOM 78 mg/dL (74-106); SODIUM 140 mmol/L (136-145)
[2021-04-21 14:12] LABS: BILIRUBIN,TOTAL 0.9 mg/dL (0.2-1); CALCIUM 8.4 mg/dL (8.5-10.1); CHLORIDE 104 mmol/L (98-107); CO2 32 mmol/L (21-32); MAGNESIUM 1.9 mg/dL (1.8-2.4); TOT PROT 5.8 g/dl (6.4-8.2)
[2021-04-21 14:13] LABS: ALK PHOS 90 U/L (45-117); SGOT/AST 48 U/L (15-37); SGPT/ALT 56 U/L (13-61)
[2021-04-22] MEDS: LACTATED RINGERS SOLUTION 1,000 ML/1,000 ML INFUS.BAG IV SCH ×3 (03:11→17:21)
[2021-04-22] MEDS ORDERED: LORazepam 1 MG TABLET PO SCH (05:00)
[2021-04-22] MEDS: morphine SULFATE 4 MG/ML VIAL IVPUSH PRN ×3 (06:27→19:52)
[2021-04-22 07:23] LABS: INR 1.42 (0.83-1.09); PROTHROMBIN TIME (PATIENT) 16.4 SEC (9.7-13.0)
[2021-04-22 07:28] LABS: HEMATOCRIT 40.9 % (35.4-49); HEMOGLOBIN 13.7 GM/dL (11.7-16.9); MCHC 33.6 g/dl (32.0-35.9); MEAN CELL VOLUME 92.2 fl (80-96); MEAN PLT VOLUME 6.8 fl (7.5-11.1); PLATELET COUNT 263 10^3/uL (134-434); RBC 4.44 M/mm3 (4.00-5.60); RDW 14.3 % (11.9-15.9)
[2021-04-22 07:45] LABS: ALBUMIN 3.5 g/dl (3.4-5.0); BILIRUBIN,DIRECT 0.5 mg/dL (0.0-0.2); BLOOD UREA NITROGEN 5.2 mg/dL (7-18); CALCIUM 8.9 mg/dL (8.5-10.1); CREATININE 0.7 mg/dL (0.55-1.3); IRON SERUM 84 ug/dL (50-175)
[2021-04-22 07:46] LABS: BILIRUBIN,TOTAL 1.2 mg/dL (0.2-1); TOT PROT 6.9 g/dl (6.4-8.2); TOTAL IRON BINDING CAPACITY 356 ug/dL (250-450)
[2021-04-22] MEDS: PANTOPRAZOLE SODIUM 40 MG VIAL IVPUSH SCH (09:21)
[2021-04-22] MEDS: ENOXAPARIN NA (PORCINE) 40 MG/0.4 ML DISP.SYRIN SQ SCH (09:21)
[2021-04-22] MEDS: FOLIC ACID 1 MG TABLET (FP) PO SCH (09:22)
[2021-04-22] MEDS: THIAMINE HCL 200 MG/2 ML VIAL IVPB SCH (09:22)
[2021-04-22] MEDS: POTASSIUM CHLORIDE TABS 20 MEQ TABLET.ER (FP) PO SCH (09:22)
[2021-04-22] MEDS: LIDOCAINE PATCH REMOVAL MC SCH (10:19)
[2021-04-22] MEDS: LORazepam 1 MG TABLET PO PRN (21:19)
[2021-04-22 22:04] VITALS: BMI 24.5
[2021-04-23] MEDS ORDERED: LORazepam 0.5 MG TABLET PO PRN
[2021-04-23] MEDS: LACTATED RINGERS SOLUTION 1,000 ML/1,000 ML INFUS.BAG IV SCH ×2 (01:24→16:31)
[2021-04-23] MEDS ORDERED: LORazepam 0.5 MG TABLET PO SCH (05:00)
[2021-04-23] MEDS: morphine SULFATE 4 MG/ML VIAL IVPUSH PRN (06:52)
[2021-04-23 07:48] LABS: BASO % 0.3 % (0-2.0); EOS % 4.8 % (0-4.5); HEMATOCRIT 41.4 % (35.4-49); HEMOGLOBIN 14.3 GM/dL (11.7-16.9); MCH 31.8 pg (25.7-33.7); MCHC 34.5 g/dl (32.0-35.9); MEAN CELL VOLUME 92.1 fl (80-96); MEAN PLT VOLUME 6.4 fl (7.5-11.1); MONO % 8.9 % (3.8-10.2); PLATELET COUNT 254 10^3/uL (134-434); RBC 4.49 M/mm3 (4.00-5.60)
[2021-04-23 08:43] LABS: CALCIUM 8.9 mg/dL (8.5-10.1)
[2021-04-23 08:44] LABS: ALBUMIN 3.6 g/dl (3.4-5.0); BLOOD UREA NITROGEN 6.3 mg/dL (7-18)
[2021-04-23 08:47] LABS: CREATININE 0.9 mg/dL (0.55-1.3)
[2021-04-23 08:48] LABS: BILIRUBIN,TOTAL 0.9 mg/dL (0.2-1)
[2021-04-23 08:49] LABS: TOT PROT 6.9 g/dl (6.4-8.2)
[2021-04-23] MEDS: PANTOPRAZOLE SODIUM 40 MG VIAL IVPUSH SCH (10:38)
[2021-04-23] MEDS: FOLIC ACID 1 MG TABLET (FP) PO SCH (10:38)
[2021-04-23] MEDS: POTASSIUM CHLORIDE TABS 20 MEQ TABLET.ER (FP) PO SCH (10:38)
[2021-04-23] MEDS: MULTIVITAMINS (DAILY MVI) TABLET (FP) PO SCH (10:38)
[2021-04-23] MEDS: ENOXAPARIN NA (PORCINE) 40 MG/0.4 ML DISP.SYRIN SQ SCH (10:38)
[2021-04-23] MEDS: THIAMINE HCL 200 MG/2 ML VIAL IVPB SCH (10:38)
[2021-04-23] MEDS: LIDOCAINE PATCH REMOVAL MC SCH (12:36)
[2021-04-23] MEDS ORDERED: QUEtiapine FUMARATE 50 MG TABLET PO SCH ×2 (22:00→22:55)
[2021-04-23] MEDS: LORazepam 2 MG/ML SDV VIAL IVPUSH PRN (22:03)
[2021-04-24] MEDS ORDERED: LORazepam 0.5 MG TABLET PO ONE (05:00)
[2021-04-24 08:04] LABS: BASO % 0.3 % (0-2.0); EOS % 7.1 % (0-4.5); HEMATOCRIT 42.7 % (35.4-49); HEMOGLOBIN 14.3 GM/dL (11.7-16.9); MCH 31.2 pg (25.7-33.7); MCHC 33.5 g/dl (32.0-35.9); MEAN PLT VOLUME 6.8 fl (7.5-11.1); MONO % 9.3 % (3.8-10.2); NEUT % 59.3 % (42.8-82.8); PLATELET COUNT 264 10^3/uL (134-434); RBC 4.59 M/mm3 (4.00-5.60); RDW 15.2 % (11.9-15.9); WHITE BLOOD COUNT 7.9 K/mm3 (4.0-10.0)
[2021-04-24 09:15] LABS: ALBUMIN 3.4 g/dl (3.4-5.0); BLOOD UREA NITROGEN 3.4 mg/dL (7-18); CALCIUM 9.1 mg/dL (8.5-10.1)
[2021-04-24 09:18] LABS: CREATININE 0.7 mg/dL (0.55-1.3)
[2021-04-24 09:20] LABS: BILIRUBIN,TOTAL 0.7 mg/dL (0.2-1); TOT PROT 6.7 g/dl (6.4-8.2)
[2021-04-24] MEDS: MULTIVITAMINS (DAILY MVI) TABLET (FP) PO SCH (09:29)
[2021-04-24] MEDS: ENOXAPARIN NA (PORCINE) 40 MG/0.4 ML DISP.SYRIN SQ SCH (09:29)
[2021-04-24] MEDS: PANTOPRAZOLE SODIUM 40 MG VIAL IVPUSH SCH (09:29)
[2021-04-24] MEDS: FOLIC ACID 1 MG TABLET (FP) PO SCH (09:30)
[2021-04-24] MEDS: POTASSIUM CHLORIDE TABS 20 MEQ TABLET.ER (FP) PO SCH (09:30)
[2021-04-24] MEDS: THIAMINE HCL 200 MG/2 ML VIAL IVPB SCH (09:30)
[2021-04-24] MEDS ORDERED: HYDROmorphone HCl 2 MG/ML VIAL IVPUSH ONE (11:13)
[2021-04-24] MEDS: LIDOCAINE PATCH REMOVAL MC SCH (14:13)
[2021-04-24] MEDS: LACTATED RINGERS SOLUTION 1,000 ML/1,000 ML INFUS.BAG IV SCH (16:50)
[2021-04-24] MEDS: LORazepam 2 MG/ML SDV VIAL IVPUSH PRN ×2 (16:50→23:17)
[2021-04-25] MEDS: LORazepam 2 MG/ML SDV VIAL IVPUSH PRN ×2 (06:23→12:06)
[2021-04-25 09:00] LABS: BASO % 0.3 % (0-2.0); EOS % 7.3 % (0-4.5); HEMATOCRIT 38.9 % (35.4-49); HEMOGLOBIN 13.4 GM/dL (11.7-16.9); LYMPH % 30.7 % (8-40); MCH 31.8 pg (25.7-33.7); MCHC 34.4 g/dl (32.0-35.9); MEAN CELL VOLUME 92.3 fl (80-96); MEAN PLT VOLUME 6.8 fl (7.5-11.1); MONO % 10.5 % (3.8-10.2); NEUT % 51.2 % (42.8-82.8); PLATELET COUNT 256 10^3/uL (134-434); RBC 4.21 M/mm3 (4.00-5.60); RDW 15.2 % (11.9-15.9); WHITE BLOOD COUNT 8.4 K/mm3 (4.0-10.0)
[2021-04-25 09:06] LABS: CHLORIDE 102 mmol/L (98-107); SODIUM 140 mmol/L (136-145)
[2021-04-25 09:09] LABS: GLUCOSE,RANDOM 90 mg/dL (74-106)
[2021-04-25 09:10] LABS: ALBUMIN 3.4 g/dl (3.4-5.0); ANION GAP 8 MMOL/L (8-16); CO2 30 mmol/L (21-32); MAGNESIUM 1.6 mg/dL (1.8-2.4)
[2021-04-25 09:13] LABS: CREATININE 0.8 mg/dL (0.55-1.3); SGOT/AST 62 U/L (15-37); SGPT/ALT 65 U/L (13-61)
[2021-04-25 09:14] LABS: BILIRUBIN,TOTAL 0.9 mg/dL (0.2-1); CALCIUM 8.9 mg/dL (8.5-10.1); TOT PROT 6.4 g/dl (6.4-8.2)
[2021-04-25 09:16] LABS: ALK PHOS 80 U/L (45-117)
[2021-04-25 09:19] LABS: BLOOD UREA NITROGEN 2.9 mg/dL (7-18)
[2021-04-25] MEDS: POTASSIUM CHLORIDE TABS 20 MEQ TABLET.ER (FP) PO SCH (09:50)
[2021-04-25] MEDS: MULTIVITAMINS (DAILY MVI) TABLET (FP) PO SCH (09:50)
[2021-04-25] MEDS: ENOXAPARIN NA (PORCINE) 40 MG/0.4 ML DISP.SYRIN SQ SCH (09:51)
[2021-04-25] MEDS: FOLIC ACID 1 MG TABLET (FP) PO SCH (09:51)
[2021-04-25] MEDS: PANTOPRAZOLE SODIUM 40 MG VIAL IVPUSH SCH (09:51)
[2021-04-25] MEDS: THIAMINE HCL 200 MG/2 ML VIAL IVPB SCH (09:56)
[2021-04-25] MEDS ORDERED: MAGNESIUM OXIDE 400 MG TABLET (FP) PO ONE (09:58)
[2021-04-25] MEDS: LIDOCAINE PATCH REMOVAL MC SCH (10:08)
[2021-04-25 10:58] VITALS: BP 141/92; PULSE 92; TEMP 98
== END 2021-04-25 14:29 | disposition home or self-care (01) | DRG 282 ==
LOC: JER 01:35 → JERBED 01:49 → OBSVTOIN 06:49 → J4W 20:32
PROVIDERS: ADMIT Internal Medicine
PROC: HZ2ZZZZ Detoxification Services for Substance Abuse Treatment (ICD-10-PCS; principal; 2021-04-20)
DX: K85.20 Alcohol induced acute pancreatitis without necrosis or infection (principal); E83.39 Other disorders of phosphorus metabolism; K70.0 Alcoholic fatty liver; E87.6 Hypokalemia; F10.230 Alcohol dependence with withdrawal, uncomplicated; R11.2 Nausea with vomiting, unspecified; R94.5 Abnormal results of liver function studies; F39 Unspecified mood [affective] disorder; F32.A Depression, unspecified; R10.13 Epigastric pain; F13.10 Sedative, hypnotic or anxiolytic abuse, uncomplicated
CPT/HCPCS: 36415; 70450-TC; 71045-TC-FY; 72125-TC; 74150-TC; 74178-TC; 76705-TC; 80053; 80076; 80307; 81003; 82150; 82550; 82962; 83540; 83550; 83605; 83690; 83735; 84100; 84478; 84484; 85025; 85027; 85610; 86140; 87040; 87086; 87804; 93005; 93010; 95816; 99285-25; C9803; G0378; Q9967; U0003; U0005